=== PATIENT | female | born 1955 | race African-American/Black ===

== ENCOUNTER 2017-01-02 13:45 | Emergency (ER) | payer OTHER ==
[~2017-01-02 13:45] MED LIST: /AMLO25TA PO; /HCTZ25TA PO; ALBU83IN INH; ASPI325T PO; BENA25CA PO; CELE20TA PO; ESTR625TA PO; FLON0.054; FLUO10CA8 PO; FOLITAB11 PO; IBUP600T26 PO; LASI40TA PO; LISI-538 PO; LISI5TAB PO; MYRB25TA PO; NAPROXYN PO; NEUR300C PO; PERCOCET PO; PROZ20CA11 PO; SERT-138 PO; TRAZ50TA4 PO; VIST50CA PO; VITA10002 PO; VITA100T92 PO; VITA50003 PO; VITMTA PO; ZEST20TA8 PO
[2017-01-02] MEDS ORDERED: IPRATROPIUM 0.5MG/ALBUTEROL 2.5MG INH SOL UD 3ML (DUONEB)(J7620) As Ordered ONE (17:02)
--- NOTE | 2017-01-02 17:57 | EDDOCDS ---
Physician Documentation [facility] Name: Jared Peterson Age: 61 yrs Sex: Female : 1955 Arrival Date: 01/02/2017 Time: 13:45 Bed PD Private MD: Robb Parikh D Disposition: 01/02/17 17:33 Discharged to Home/Self Care. Impression: Acute bronchitis - possible undiagnosed COPD exaccerbation. - Condition is Stable. - Discharge Instructions: Acute Bronchitis, Smoking Cessation. - Prescriptions for Doxycycline Monohydrate 100 mg Oral Tablet - take 1 tablet by ORAL route every 12 hours for 10 days; 20 tablet. Prednisone 20 mg Oral Tablet - take 1 tablet by ORAL route as directed Day 1-3: 3 po, day 4-7: 2 po, day 8-10: 1 po; 20 tablet. Mucinex 600 mg - take 1 tablet by ORAL route 2 times per day; 30 tablet. benzonatate 200 mg Oral Capsule - take 1 capsule by ORAL route 3 times per day As needed; 30 capsule. - Medication Reconciliation, Local Pharmacy Hours form. - Follow up: Emergency Department; When: As needed; Reason: Fever > 102F, Trouble breathing, Worsening of conditions. Follow up: Robb Parikh; When: 2 - 3 days; Reason: Recheck today's complaints. Follow up: Dustin Ambriz MD; When: As needed; Reason: Recheck today's complaints, Continuance of care. - Problem is new. - Symptoms have improved. Historical: - Allergies: z-namita (zithromycin) (Hives); - Home Meds: 1. aspirin 325 mg Oral TbEC 1 tab once daily hasnt taken in 1 month 2. certraline 10 mg daily 3. Combivir 150-300 mg oral tab as needed 4. lisinopril 20 mg Oral tab 1 tab once daily 5. nasal spay each nostril as needed 6. premarin vaginal cream ---3 x weekly 7. baclofen 10 mg Oral tab nightly 8. meloxicam 7.5 mg oral tab 1 tab as needed 9. Copaxone 40 mg/mL subcutaneous syrg 1 mL 3 times per wk 10. steroid injections for pain 1 monthly - PMHx: breast CA; Gallstones; HTN; MS; - PSHx: right lobectomy; Bladder suspension; polyps removed; - Social history: Smoking status: Patient uses tobacco products, heavy tobacco smoker. No barriers to communication noted, The patient speaks fluent Urdu, Speaks appropriately for age. - Family history: Not pertinent. - : The pt / caregiver states he / she is not on anticoagulants. Home medication list is obtained from the patient. - Exposure Risk Screening:: None identified. Vital Signs: 01/02 13:48 BP 175 / 90; Pulse 79; Resp 18 S; Temp 98.1(O); Pulse Ox 97% on R/A; Weight 99.79 kg / gr2 220 lbs (R); Height 5 ft. 3 in. (160.02 cm) (R); Pain 4/10; 17:38 BP 145 / 72; Pulse 78; Resp 18; Temp 97.6(O); Pulse Ox 98% on R/A; Pain 4/10; ct3 13:48 Body Mass Index 38.97 (99.79 kg, 160.02 cm) gr2 MDM: 16:42 Financial registration complete. gjb 16:46 [facility] Payment Agreement was scanned into [employer] and attached to record. gjb 16:48 Albuterol-Ipratropium 1 neb Nebulizer every 20 minutes x3 ordered. ar2 16:48 Obtain sample by nasopharyngeal swab ordered. ar2 16:49 -Influenza A&B Rapid Antigen - Nose Ordered. EDMS 17:25 -Influenza A&B Rapid Antigen - Nose Reviewed. ar2 Administered Medications: 17:00 Drug: Albuterol-Ipratropium 1 neb [ipratropium-albuterol 0.5 mg-3 mg(2.5 mg base)/3 mL js11 nebulization soln (1 neb)] Route: Nebulizer; 17:15 Drug: Albuterol-Ipratropium 1 neb [ipratropium-albuterol 0.5 mg-3 mg(2.5 mg base)/3 mL js11 nebulization soln (1 neb)] Route: Nebulizer; 17:34 Drug: Albuterol-Ipratropium 1 neb [ipratropium-albuterol 0.5 mg-3 mg(2.5 mg base)/3 mL js11 nebulization soln (1 neb)] Route: Nebulizer; Signatures: Dispatcher [email or web address] EDYesenia BarrientosRN RN ck1 Ten Arauz, TRESSA PAGal ar2 Yina Mcallister RN RN hs1 Herminia Lopez Jordan js11 The chart was reviewed and I authenticate all verbal orders and agree with the evaluation and treatment provided.Attachments: 16:46 [facility] Payment Agreement zac MTDD
--- NOTE | 2017-01-02 17:58 | EDDOCDS ---
Nurse's Notes [facility] Name: Jared Peterson Age: 61 yrs Sex: Female : 1955 Arrival Date: 01/02/2017 Time: 13:45 Bed PD Private MD: Robb Parikh D Diagnosis: Acute bronchitis-possible undiagnosed COPD exaccerbation Presentation: 01/02 13:58 Presenting complaint: Patient states: was told by primary care office to come to urgent hs1 care. Patient presents with cough and cold symptoms for 4-5 days. Patient states productive cough. Patient states worse at night. Adult Sepsis Screening: The patient does not have new or worsening altered mentation. Patient's respiratory rate is less than 22. Systolic blood pressure is greater than 100. Patient has a qSOFA score of 0- Negative Sepsis Screen. Suicide/Homicide risk assessment- the patient denies having any suicidal and/or homicidal ideations and does not present with any other emotional, behavioral or mental health complaints. Status: Patient is not a printing services coordinator or dependent. Transition of care: patient was not received from another setting of care. 13:58 Acuity: JYOTI Level 3 hs1 13:58 Method Of Arrival: Walkin/Carried/Asstd hs1 Triage Assessment: 14:03 General: Appears in no apparent distress, Behavior is appropriate for age, cooperative. hs1 Pain: Denies pain. HIV screening NA for this visit Offered previously. Neurological: No deficits noted. Respiratory: Reports shortness of breath. Derm: Skin is pink, warm & dry. normal. Historical: - Allergies: z-namita (zithromycin) (Hives); - Home Meds: 1. aspirin 325 mg Oral TbEC 1 tab once daily hasnt taken in 1 month 2. certraline 10 mg daily 3. Combivir 150-300 mg oral tab as needed 4. lisinopril 20 mg Oral tab 1 tab once daily 5. nasal spay each nostril as needed 6. premarin vaginal cream ---3 x weekly 7. baclofen 10 mg Oral tab nightly 8. meloxicam 7.5 mg oral tab 1 tab as needed 9. Copaxone 40 mg/mL subcutaneous syrg 1 mL 3 times per wk 10. steroid injections for pain 1 monthly - PMHx: breast CA; Gallstones; HTN; MS; - PSHx: right lobectomy; Bladder suspension; polyps removed; - Social history: Smoking status: Patient uses tobacco products, heavy tobacco smoker. No barriers to communication noted, The patient speaks fluent Icelandic, Speaks appropriately for age. - Family history: Not pertinent. - : The pt / caregiver states he / she is not on anticoagulants. Home medication list is obtained from the patient. - Exposure Risk Screening:: None identified. Screenin:55 Screening information is obtained from the patient. Fall risk: No risks identified. ck1 Assistance ADL's: requires no assistance with activities of daily living. Abuse/DV Screen: The patient / caregiver reports he/she is: not in a situation that causes fear, pain or injury. Nutritional screening: No deficits noted. Advance Directives: Currently, there is no health care proxy. home support is adequate. Assessment: 17:56 General: Appears in no apparent distress, comfortable, Behavior is appropriate for age, ck1 cooperative. Pain: Denies pain. Neurological: Level of Consciousness is awake, alert, obeys commands, Oriented to person, place, time. Respiratory: Respiratory effort is unlabored, Respiratory pattern is regular, symmetrical. GI: No deficits noted. Derm: Skin is intact, is healthy with good turgor, Skin is pink, warm & dry. Vital Signs: 13:48 BP 175 / 90; Pulse 79; Resp 18 S; Temp 98.1(O); Pulse Ox 97% on R/A; Weight 99.79 kg gr2 (R); Height 5 ft. 3 in. (160.02 cm) (R); Pain 4/10; 17:38 BP 145 / 72; Pulse 78; Resp 18; Temp 97.6(O); Pulse Ox 98% on R/A; Pain 4/10; ct3 13:48 Body Mass Index 38.97 (99.79 kg, 160.02 cm) gr2 Vitals: 13:48 Log In Time: January 02, 2017 at 13:48. gr2 ED Course: 13:47 Patient visited by Ruby Duffy. gr2 13:47 Robb Parikh is Private Physician. gr2 13:47 Patient moved to Waiting gr2 13:52 Patient visited by Ruby Duffy. gr2 13:52 Patient moved to Pre RCE gr2 14:00 Triage Initiated hs1 16:02 Patient moved to Triage 1 mlb1 16:27 Ten Arauz PA-C [facility]. ar2 16:27 Freid Cope MD is Attending Physician. ar2 16:27 Patient visited by Ten Arauz PA-C. ar2 16:46 [facility] Payment Agreement was scanned into [employer] and attached to record. gjb 16:52 Patient moved to PD2 / 27 mlb1 16:55 -Influenza A&B Rapid Antigen - Nose Sent. ttb 17:03 Patient visited by Xochilt Degroot PCA. ct3 17:07 Patient name changed from Aundra\S\\S\Green\S\ to Aundra\S\ \S\Green. EDMS 17:31 Robb Parikh is Referral Physician. ar2 17:31 Dustin Ambriz MD is Referral Physician. ar2 17:39 Patient visited by Xochilt Degroot PCA. ct3 17:56 The patient / caregiver is instructed regarding the plan of care and ED course. ck1 17:56 No IV's were initiated during this patient's visit. No procedures done that require ck1 assistance. Administered Medications: 17:00 Drug: Albuterol-Ipratropium 1 neb [ipratropium-albuterol 0.5 mg-3 mg(2.5 mg base)/3 mL js11 nebulization soln (1 neb)] Route: Nebulizer; 17:15 Drug: Albuterol-Ipratropium 1 neb [ipratropium-albuterol 0.5 mg-3 mg(2.5 mg base)/3 mL js11 nebulization soln (1 neb)] Route: Nebulizer; 17:34 Drug: Albuterol-Ipratropium 1 neb [ipratropium-albuterol 0.5 mg-3 mg(2.5 mg base)/3 mL js11 nebulization soln (1 neb)] Route: Nebulizer; RT: 17:00 Initial Med Neb Given as ordered Patient was instructed and evaluated on procedure js11 Patient tolerated procedure well without adverse effect. Oxygen is room air. Respiratory: Breath sounds with wheezes bilaterally. at expiration. 17:15 Subsequent Med Neb Given as ordered Patient tolerated procedure well without adverse js11 effect. Respiratory: Breath sounds with wheezes bilaterally. at expiration. 17:34 Subsequent Med Neb Given as ordered Patient tolerated procedure well without adverse js11 effect. Respiratory: Breath sounds with wheezes bilaterally. at expiration. Order Results: Lab Order: -Influenza A&B Rapid Antigen - Nose; SPEC'M 01/02/17 16:53 Test: INFLUENZA A RAPID SCR by ICA; Value: INFLUENZA A RESULTS NEGATIVE; Status: F Test: INFLUENZA A RAPID SCR by ICA; Value: Comments:; Status: F Test: INFLUENZA B RAPID SCR by ICA; Value: INFLUENZA B RESULTS NEGATIVE; Status: F Test Note: ; The Influenza test is a direct rapid immunoassay for the qualitative detection of Influenza viral antigen. Cell culture (Viral Culture) testing should be considered to confirm NEGATIVE results and to assist in detecting other viruses that can provide similar clinical symptoms. Please contact the lab within 24 hours ([phone]) if confirmatory testing is desired. Outcome: 17:33 Discharge ordered by Provider. ar2 17:55 Discharge Assessment: Patient awake, alert and oriented x 3. No cognitive and/or ck1 functional deficits noted. Patient verbalized understanding of disposition instructions. patient administered narcotics - no. The following High Risk Discharge criteria are identified: None. Discharged to home ambulatory. Condition: stable. Discharge instructions given to patient, Instructed on discharge instructions, follow up and referral plans. medication usage, Demonstrated understanding of instructions, medications, Pt was receptive of discharge instructions/ teaching. Prescriptions given X 4. No special radiology studies were completed. Property :Personal belongings accompany Pt. 17:57 Patient left the ED. ck1 Signatures: Dispatcher [employer] EDNC Regulo Cotto RN RN mlb1 Yesenia MchughRN RN ck1 Ten Arauz, TRESSA PA-C ar2 Yina Mcallister RN RN hs1 Xochilt Degroot, FRUIT VENDOR FRUIT VENDOR ct3 Clayton Bain js11 Lindsay Alvarado RN RN ttb Ruby Duffy gr2 Herminia Lopez MTDD
--- NOTE | 2017-01-04 18:58 | EDDOCDS ---
Physician Documentation [facility] Name: Jared Peterson Age: 61 yrs Sex: Female : 1955 Arrival Date: 01/02/2017 Time: 13:45 Bed PD Private MD: Robb Parikh D Disposition: 01/02/17 17:33 Discharged to Home/Self Care. Impression: Acute bronchitis - possible undiagnosed COPD exaccerbation. - Condition is Stable. - Discharge Instructions: Acute Bronchitis, Smoking Cessation. - Prescriptions for Doxycycline Monohydrate 100 mg Oral Tablet - take 1 tablet by ORAL route every 12 hours for 10 days; 20 tablet. Prednisone 20 mg Oral Tablet - take 1 tablet by ORAL route as directed Day 1-3: 3 po, day 4-7: 2 po, day 8-10: 1 po; 20 tablet. Mucinex 600 mg - take 1 tablet by ORAL route 2 times per day; 30 tablet. benzonatate 200 mg Oral Capsule - take 1 capsule by ORAL route 3 times per day As needed; 30 capsule. - Medication Reconciliation, Local Pharmacy Hours form. - Follow up: Emergency Department; When: As needed; Reason: Fever > 102F, Trouble breathing, Worsening of conditions. Follow up: Robb Parikh; When: 2 - 3 days; Reason: Recheck today's complaints. Follow up: Dustin Ambriz MD; When: As needed; Reason: Recheck today's complaints, Continuance of care. - Problem is new. - Symptoms have improved. Historical: - Allergies: z-namita (zithromycin) (Hives); - Home Meds: 1. aspirin 325 mg Oral TbEC 1 tab once daily hasnt taken in 1 month 2. certraline 10 mg daily 3. Combivir 150-300 mg oral tab as needed 4. lisinopril 20 mg Oral tab 1 tab once daily 5. nasal spay each nostril as needed 6. premarin vaginal cream ---3 x weekly 7. baclofen 10 mg Oral tab nightly 8. meloxicam 7.5 mg oral tab 1 tab as needed 9. Copaxone 40 mg/mL subcutaneous syrg 1 mL 3 times per wk 10. steroid injections for pain 1 monthly - PMHx: breast CA; Gallstones; HTN; MS; - PSHx: right lobectomy; Bladder suspension; polyps removed; - Social history: Smoking status: Patient uses tobacco products, heavy tobacco smoker. No barriers to communication noted, The patient speaks fluent Arabic, Speaks appropriately for age. - Family history: Not pertinent. - : The pt / caregiver states he / she is not on anticoagulants. Home medication list is obtained from the patient. - Exposure Risk Screening:: None identified. Vital Signs: 01/02 13:48 BP 175 / 90; Pulse 79; Resp 18 S; Temp 98.1(O); Pulse Ox 97% on R/A; Weight 99.79 kg / gr2 220 lbs (R); Height 5 ft. 3 in. (160.02 cm) (R); Pain 4/10; 17:38 BP 145 / 72; Pulse 78; Resp 18; Temp 97.6(O); Pulse Ox 98% on R/A; Pain 4/10; ct3 13:48 Body Mass Index 38.97 (99.79 kg, 160.02 cm) gr2 MDM: 16:42 Financial registration complete. gjb 16:46 [facility] Payment Agreement was scanned into [employer] and attached to record. gjb 16:48 Albuterol-Ipratropium 1 neb Nebulizer every 20 minutes x3 ordered. ar2 16:48 Obtain sample by nasopharyngeal swab ordered. ar2 16:49 -Influenza A&B Rapid Antigen - Nose Ordered. EDMS 17:25 -Influenza A&B Rapid Antigen - Nose Reviewed. ar2 01/03 11:12 T-Sheet-- Draft Copy was scanned into [employer] and attached to record. gb Administered Medications: 01/02 17:00 Drug: Albuterol-Ipratropium 1 neb [ipratropium-albuterol 0.5 mg-3 mg(2.5 mg base)/3 mL js11 nebulization soln (1 neb)] Route: Nebulizer; 17:15 Drug: Albuterol-Ipratropium 1 neb [ipratropium-albuterol 0.5 mg-3 mg(2.5 mg base)/3 mL js11 nebulization soln (1 neb)] Route: Nebulizer; 17:34 Drug: Albuterol-Ipratropium 1 neb [ipratropium-albuterol 0.5 mg-3 mg(2.5 mg base)/3 mL js11 nebulization soln (1 neb)] Route: Nebulizer; Signatures: Dispatcher [employer] EDCherry Crane, Reg Reg gb Yesenia Mchugh,RN RN ck1 Ten Arauz, PAGal PA-C ar2 Yina Mcallister RN RN hs1 Herminia Lopez gjb Clayton Bain js11 The chart was reviewed and I authenticate all verbal orders and agree with the evaluation and treatment provided.Attachments: 16:46 [facility] Payment Agreement gjb 01/03 11:12 T-Sheet-- Draft Copy gb Chart Complete MTDD
--- NOTE | 2017-01-04 18:58 | EDDOCDS ---
Nurse's Notes [facility] Name: Jared Peterson Age: 61 yrs Sex: Female : 1955 Arrival Date: 01/02/2017 Time: 13:45 Bed PD Private MD: Robb Parikh D Diagnosis: Acute bronchitis-possible undiagnosed COPD exaccerbation Presentation: 01/02 13:58 Presenting complaint: Patient states: was told by primary care office to come to urgent hs1 care. Patient presents with cough and cold symptoms for 4-5 days. Patient states productive cough. Patient states worse at night. Adult Sepsis Screening: The patient does not have new or worsening altered mentation. Patient's respiratory rate is less than 22. Systolic blood pressure is greater than 100. Patient has a qSOFA score of 0- Negative Sepsis Screen. Suicide/Homicide risk assessment- the patient denies having any suicidal and/or homicidal ideations and does not present with any other emotional, behavioral or mental health complaints. Status: Patient is not a volunteer services supervisor or dependent. Transition of care: patient was not received from another setting of care. 13:58 Acuity: JYOTI Level 3 hs1 13:58 Method Of Arrival: Walkin/Carried/Asstd hs1 Triage Assessment: 14:03 General: Appears in no apparent distress, Behavior is appropriate for age, cooperative. hs1 Pain: Denies pain. HIV screening NA for this visit Offered previously. Neurological: No deficits noted. Respiratory: Reports shortness of breath. Derm: Skin is pink, warm & dry. normal. Historical: - Allergies: z-namita (zithromycin) (Hives); - Home Meds: 1. aspirin 325 mg Oral TbEC 1 tab once daily hasnt taken in 1 month 2. certraline 10 mg daily 3. Combivir 150-300 mg oral tab as needed 4. lisinopril 20 mg Oral tab 1 tab once daily 5. nasal spay each nostril as needed 6. premarin vaginal cream ---3 x weekly 7. baclofen 10 mg Oral tab nightly 8. meloxicam 7.5 mg oral tab 1 tab as needed 9. Copaxone 40 mg/mL subcutaneous syrg 1 mL 3 times per wk 10. steroid injections for pain 1 monthly - PMHx: breast CA; Gallstones; HTN; MS; - PSHx: right lobectomy; Bladder suspension; polyps removed; - Social history: Smoking status: Patient uses tobacco products, heavy tobacco smoker. No barriers to communication noted, The patient speaks fluent Welsh, Speaks appropriately for age. - Family history: Not pertinent. - : The pt / caregiver states he / she is not on anticoagulants. Home medication list is obtained from the patient. - Exposure Risk Screening:: None identified. Screenin:55 Screening information is obtained from the patient. Fall risk: No risks identified. ck1 Assistance ADL's: requires no assistance with activities of daily living. Abuse/DV Screen: The patient / caregiver reports he/she is: not in a situation that causes fear, pain or injury. Nutritional screening: No deficits noted. Advance Directives: Currently, there is no health care proxy. home support is adequate. Assessment: 17:56 General: Appears in no apparent distress, comfortable, Behavior is appropriate for age, ck1 cooperative. Pain: Denies pain. Neurological: Level of Consciousness is awake, alert, obeys commands, Oriented to person, place, time. Respiratory: Respiratory effort is unlabored, Respiratory pattern is regular, symmetrical. GI: No deficits noted. Derm: Skin is intact, is healthy with good turgor, Skin is pink, warm & dry. Vital Signs: 13:48 BP 175 / 90; Pulse 79; Resp 18 S; Temp 98.1(O); Pulse Ox 97% on R/A; Weight 99.79 kg gr2 (R); Height 5 ft. 3 in. (160.02 cm) (R); Pain 4/10; 17:38 BP 145 / 72; Pulse 78; Resp 18; Temp 97.6(O); Pulse Ox 98% on R/A; Pain 4/10; ct3 13:48 Body Mass Index 38.97 (99.79 kg, 160.02 cm) gr2 Vitals: 13:48 Log In Time: January 02, 2017 at 13:48. gr2 ED Course: 13:47 Patient visited by Ruby Duffy. gr2 13:47 Robb Parikh is Private Physician. gr2 13:47 Patient moved to Waiting gr2 13:52 Patient visited by Ruby Duffy. gr2 13:52 Patient moved to Pre RCE gr2 14:00 Triage Initiated hs1 16:02 Patient moved to Triage 1 mlb1 16:27 [facility] Arauz [facility]. ar2 16:27 Fredi Cope MD is Attending Physician. ar2 16:27 Patient visited by Ten Arauz PA-C. ar2 16:46 [facility] Payment Agreement was scanned into [employer] and attached to record. gjb 16:52 Patient moved to PD2 / 27 mlb1 16:55 -Influenza A&B Rapid Antigen - Nose Sent. ttb 17:03 Patient visited by Xochilt Degroot PCA. ct3 17:07 Patient name changed from Aundra\S\\S\Green\S\ to Aundra\S\ \S\Green. EDMS 17:31 Robb Parikh is Referral Physician. ar2 17:31 Dustin Ambriz MD is Referral Physician. ar2 17:39 Patient visited by Xochilt Degroot PCA. ct3 17:56 The patient / caregiver is instructed regarding the plan of care and ED course. ck1 17:56 No IV's were initiated during this patient's visit. No procedures done that require ck1 assistance. 01/03 11:12 T-Sheet-- Draft Copy was scanned into [employer] and attached to record. gb Administered Medications: 01/02 17:00 Drug: Albuterol-Ipratropium 1 neb [ipratropium-albuterol 0.5 mg-3 mg(2.5 mg base)/3 mL js11 nebulization soln (1 neb)] Route: Nebulizer; 17:15 Drug: Albuterol-Ipratropium 1 neb [ipratropium-albuterol 0.5 mg-3 mg(2.5 mg base)/3 mL js11 nebulization soln (1 neb)] Route: Nebulizer; 17:34 Drug: Albuterol-Ipratropium 1 neb [ipratropium-albuterol 0.5 mg-3 mg(2.5 mg base)/3 mL js11 nebulization soln (1 neb)] Route: Nebulizer; RT: 17:00 Initial Med Neb Given as ordered Patient was instructed and evaluated on procedure js11 Patient tolerated procedure well without adverse effect. Oxygen is room air. Respiratory: Breath sounds with wheezes bilaterally. at expiration. 17:15 Subsequent Med Neb Given as ordered Patient tolerated procedure well without adverse js11 effect. Respiratory: Breath sounds with wheezes bilaterally. at expiration. 17:34 Subsequent Med Neb Given as ordered Patient tolerated procedure well without adverse js11 effect. Respiratory: Breath sounds with wheezes bilaterally. at expiration. Order Results: Lab Order: -Influenza A&B Rapid Antigen - Nose; SPEC'M 01/02/17 16:53 Test: INFLUENZA A RAPID SCR by ICA; Value: INFLUENZA A RESULTS NEGATIVE; Status: F Test: INFLUENZA A RAPID SCR by ICA; Value: Comments:; Status: F Test: INFLUENZA B RAPID SCR by ICA; Value: INFLUENZA B RESULTS NEGATIVE; Status: F Test Note: ; The Influenza test is a direct rapid immunoassay for the qualitative detection of Influenza viral antigen. Cell culture (Viral Culture) testing should be considered to confirm NEGATIVE results and to assist in detecting other viruses that can provide similar clinical symptoms. Please contact the lab within 24 hours ([phone]) if confirmatory testing is desired. Outcome: 17:33 Discharge ordered by Provider. ar2 17:55 Discharge Assessment: Patient awake, alert and oriented x 3. No cognitive and/or ck1 functional deficits noted. Patient verbalized understanding of disposition instructions. patient administered narcotics - no. The following High Risk Discharge criteria are identified: None. Discharged to home ambulatory. Condition: stable. Discharge instructions given to patient, Instructed on discharge instructions, follow up and referral plans. medication usage, Demonstrated understanding of instructions, medications, Pt was receptive of discharge instructions/ teaching. Prescriptions given X 4. No special radiology studies were completed. Property :Personal belongings accompany Pt. 17:57 Patient left the ED. ck1 Signatures: Dispatcher [employer] EDMS Cherry Goldsmith, Reg Reg Regulo Hooker RN RN mlb1 Yesenia Mchugh RN RN ck1 Ten Arauz PA-C PAGal ar2 Yina Mcallister, KAYLIE RN hs1 Xochilt Degroot, BAG FILLER BAG FILLER ct3 Clayton Bain js11 Lindsay Alvarado RN RN ttb Ruby Duffy gr2 Herminia Lopez Chart Complete MTDD
--- NOTE | 2017-01-04 18:58 | EDDOCDS ---
Physician Documentation [facility] Name: Jared Peterson Age: 61 yrs Sex: Female : 1955 Arrival Date: 01/02/2017 Time: 13:45 Bed PD Private MD: Robb Parikh D Disposition: 01/02/17 17:33 Discharged to Home/Self Care. Impression: Acute bronchitis - possible undiagnosed COPD exaccerbation. - Condition is Stable. - Discharge Instructions: Acute Bronchitis, Smoking Cessation. - Prescriptions for Doxycycline Monohydrate 100 mg Oral Tablet - take 1 tablet by ORAL route every 12 hours for 10 days; 20 tablet. Prednisone 20 mg Oral Tablet - take 1 tablet by ORAL route as directed Day 1-3: 3 po, day 4-7: 2 po, day 8-10: 1 po; 20 tablet. Mucinex 600 mg - take 1 tablet by ORAL route 2 times per day; 30 tablet. benzonatate 200 mg Oral Capsule - take 1 capsule by ORAL route 3 times per day As needed; 30 capsule. - Medication Reconciliation, Local Pharmacy Hours form. - Follow up: Emergency Department; When: As needed; Reason: Fever > 102F, Trouble breathing, Worsening of conditions. Follow up: Robb Parikh; When: 2 - 3 days; Reason: Recheck today's complaints. Follow up: Dustin Ambriz MD; When: As needed; Reason: Recheck today's complaints, Continuance of care. - Problem is new. - Symptoms have improved. Historical: - Allergies: z-namita (zithromycin) (Hives); - Home Meds: 1. aspirin 325 mg Oral TbEC 1 tab once daily hasnt taken in 1 month 2. certraline 10 mg daily 3. Combivir 150-300 mg oral tab as needed 4. lisinopril 20 mg Oral tab 1 tab once daily 5. nasal spay each nostril as needed 6. premarin vaginal cream ---3 x weekly 7. baclofen 10 mg Oral tab nightly 8. meloxicam 7.5 mg oral tab 1 tab as needed 9. Copaxone 40 mg/mL subcutaneous syrg 1 mL 3 times per wk 10. steroid injections for pain 1 monthly - PMHx: breast CA; Gallstones; HTN; MS; - PSHx: right lobectomy; Bladder suspension; polyps removed; - Social history: Smoking status: Patient uses tobacco products, heavy tobacco smoker. No barriers to communication noted, The patient speaks fluent Yakut, Speaks appropriately for age. - Family history: Not pertinent. - : The pt / caregiver states he / she is not on anticoagulants. Home medication list is obtained from the patient. - Exposure Risk Screening:: None identified. Vital Signs: 01/02 13:48 BP 175 / 90; Pulse 79; Resp 18 S; Temp 98.1(O); Pulse Ox 97% on R/A; Weight 99.79 kg / gr2 220 lbs (R); Height 5 ft. 3 in. (160.02 cm) (R); Pain 4/10; 17:38 BP 145 / 72; Pulse 78; Resp 18; Temp 97.6(O); Pulse Ox 98% on R/A; Pain 4/10; ct3 13:48 Body Mass Index 38.97 (99.79 kg, 160.02 cm) gr2 MDM: 16:42 Financial registration complete. gjb 16:46 [facility] Payment Agreement was scanned into [employer] and attached to record. gjb 16:48 Albuterol-Ipratropium 1 neb Nebulizer every 20 minutes x3 ordered. ar2 16:48 Obtain sample by nasopharyngeal swab ordered. ar2 16:49 -Influenza A&B Rapid Antigen - Nose Ordered. EDMS 17:25 -Influenza A&B Rapid Antigen - Nose Reviewed. ar2 01/03 11:12 T-Sheet-- Draft Copy was scanned into [employer] and attached to record. gb Administered Medications: 01/02 17:00 Drug: Albuterol-Ipratropium 1 neb [ipratropium-albuterol 0.5 mg-3 mg(2.5 mg base)/3 mL js11 nebulization soln (1 neb)] Route: Nebulizer; 17:15 Drug: Albuterol-Ipratropium 1 neb [ipratropium-albuterol 0.5 mg-3 mg(2.5 mg base)/3 mL js11 nebulization soln (1 neb)] Route: Nebulizer; 17:34 Drug: Albuterol-Ipratropium 1 neb [ipratropium-albuterol 0.5 mg-3 mg(2.5 mg base)/3 mL js11 nebulization soln (1 neb)] Route: Nebulizer; Signatures: Dispatcher [employer] EDCherry Crane, Reg Reg gb Yesenia Mchugh,RN RN ck1 Ten Arauz, PAGal PA-C ar2 Yina Mcallister RN RN hs1 Herminia Lopez gjb Clayton Bain js11 The chart was reviewed and I authenticate all verbal orders and agree with the evaluation and treatment provided.Attachments: 16:46 [facility] Payment Agreement gjb 01/03 11:12 T-Sheet-- Draft Copy gb Chart Complete MTDD
== END 2017-01-02 17:57 | disposition home or self-care (01) ==
LOC: M ED 13:45
DX: J20.9 Acute bronchitis, unspecified (principal); I10 Essential (primary) hypertension; G35 Multiple sclerosis; Z85.3 Personal history of malignant neoplasm of breast; Z87.19 Personal history of other diseases of the digestive system; Z79.899 Other long term (current) drug therapy; Z88.1 Allergy status to other antibiotic agents

== ENCOUNTER → 2017-02-05 | Outpatient (CLI) | payer OTHER ==
--- NOTE | 2017-02-11 23:49 | ECWPNPC ---
PATIENT NAME: TYLER GONZÁLES : 1955 GENDER: FEMALE VISIT DATE: 02/05/2017 DISCHARGE DATE: 02/05/17 1114 VISIT LOCKED DATE TIME: PHYSICIAN: MOODY PRADHAN RESOURCE: MOODY PRADHAN REASON FOR APPOINTMENT 1. NECK/SHOULERS HISTORY OF PRESENT ILLNESS HISTORY OF PRESENT ILLNESS: HERE FOR POST PROCEDURE F/U.HAD TPI [id number] AND REPORTS >75% PERCENT IMPROVEMENT IN INTENSITY OF PAIN X2 WKS.C/O GENERALIZED NECK PAIN.DESCRIBES PAIN CONSTANT ACHING AND THROBBING.PAIN AGGREVATED WITH ROJM NECK. FALL RISK SCREENING: SCREENING :NO FALLS IN THE PAST YEAR CURRENT MEDICATIONS TAKING FLONASE 50 MCG/DOSE INHALER 1 SPRAY IN EACH NOSTRIL NASALLY ONCE A DAY TAKING PREMARIN 0.625 MG/GM CREAM CREAM VAGINAL THREE TIMES WEEKLY TAKING ZOLOFT 100 MG TABLET 1 TABLET ORALLY ONCE A DAY ([facility]) TAKING COMBIVENT RESPIMAT 20-100 MCG/ACT AEROSOL SOLUTION 1 PUFF INHALATION FOUR TIMES A DAY NEEDED TAKING HYDROXYZINE HCL 25 MG TABLET 1 TABLET NEEDED ORALLY EVERY 8 HRS TAKING DRISDOL (6 WEEK) 15441 UNIT CAPSULE 1 CAPSULE ORALLY ONCE WEEKLY, NOTES: NONE LATELY TAKING MELOXICAM 15 MG TABLET 1 TABLET ORALLY ONCE A DAY NEEDED, NOTES: NONE LATELY TAKING BACLOFEN 10 MG TABLET 1 TABLET WITH FOOD OR MILK ORALLY DAILY, NOTES: 10/23/16 TAKING LISINOPRIL 20 MG TABLET 1 TABLET ORALLY ONCE A DAY, NOTES: 10/25/16 0830 TAKING ASPIR-81 81 MG TABLET DELAYED RELEASE 1 TABLET ORALLY ONCE A DAY TAKING COPAXONE 40 MG/ML SOLUTION PREFILLED SYRINGE 1 ML SUBCUTANEOUS THREE TIMES A WEEK TAKING VITAMIN B12 1000 MCG TABLET EXTENDED RELEASE 1 TABLET ORALLY ONCE A DAY NOT-TAKING ASPIRIN 325 MG TABLET 1 TABLET ORALLY ONCE A DAY, NOTES: NONE LATELY NOT-TAKING AMITRIPTYLINE HCL 25 MG TABLET 1 TABLET ORALLY AT BEDTIME NEEDED, NOTES: 10/24/16 NOT-TAKING CLINDAMYCIN HCL 300 MG CAPSULE TAKE ONE CAPSULE BY MOUTH EVERY 6 HOURS ORAL NOT-TAKING ATORVASTATIN CALCIUM 80 MG TABLET 1 TABLET ORALLY ONCE A DAY MEDICATION LIST REVIEWED AND RECONCILED WITH THE PATIENT PAST MEDICAL HISTORY CHRONIC HEPATITIS C - DX 1998 GENOTYPE 1 A, VL 2.5 MILLION, F1 FIBROSIS, LIVER US GALLSTONES 2014, Q80K POLYMORPHISM TREATMENT VIEKIRA PACK/ RIBAVIRIN FOR 12 WEEKS SVR 12 CURED HTN ALCOHOLISM WENT TO DETOX AND REHAB 07/2013 AND 07/22/2014 AND 06/2015 DEPRESSION HX IVDU ALCOHOLIC NEUROPATHY SUSPECTED MS WITH DEMYLINATING PLAQUES IN BRAIN AND THORACIC SPINE VITAMIN B12 DEFICIENY CAPARL TUNNEL BENJAMIN. 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 NEW PATIENT PAIN DIARY TODAY'S VISITNOTES FROM 0-10, WHAT LEVEL IS YOUR PAIN TODAY?0 PAIN CLINIC PFS, CLERGY, PUBLIC HEALTH REFERRALS PFS REFERRAL NEEDED?NO CLERGY REFERRAL NEEDED?NO PUBLIC HEALTH REFERRAL NEEDED?NO WAS THE PROVIDER NOTIFIED OF ANY PERTINENT INFO?NO PFS REFERRAL NEEDED?NO CLERGY REFERRAL NEEDED?NO PUBLIC HEALTH REFERRAL NEEDED?NO WAS THE PROVIDER NOTIFIED OF ANY PERTINENT INFO?NO REVIEW OF SYSTEMS CONSTITUTIONAL: ANY CHANGE IN YOUR MEDICAL CONDITION? NO . RECENT ILLNESS DENIES . CHILLS NO . FEVER NO . WEIGHT LOSS DENIES . INFECTION: DO YOU HAVE NEW INFECTIONS? NO . DO YOU HAVE HISTORY OF MRSA? NO . MUSCULOSKELETAL: ANY NEW PATTERNS OF PAIN OR NUMBNESS? YES, PAIN IN LEFT ARM . GASTROENTEROLOGY: ANY NEW CHANGE IN BOWEL CONTROL? NO . GENITOURINARY: ANY NEW CHANGE IN BLADDER CONTROL? NO . IS THERE A CHANCE YOU COULD BE ? NO . HEMATOLOGY/LYMPH: DO YOU TAKE ANY BLOOD THINNERS? (FOR EXAMPLE- COUMADIN, PLAVIX, AGGRENOX, PLATEL, PRADAXA, OR XARELTO) NO . WHEN WAS YOUR LAST DOSE? DATE: TIME: . NEUROLOGY: HAVE YOU FALLEN IN THE PAST 6 MONTHS? YES, VERTIGO AND BALANCE PROBLEMS . ANY NEW EXTREMITY NUMBNESS OR WEAKNESS? NO . CARDIOLOGY: DO YOU HAVE A PACEMAKER OR DEFIBRILLATOR? NO . CHEST PAIN DENIES . SHORTNESS OF BREATH DENIES . RESPIRATORY: HAVE YOU BEEN SICK IN THE PAST WEEK? NO . FEVER NO . FLU LIKE SYMPTOMS? NO . COUGH NO, DENIES . SHORTNESS OF BREATH DENIES . INTEGUMENTARY: DO YOU HAVE ANY RASHES OR OPEN SORES? NO . ALLERGIC/IMMUNO: ARE YOU ALLERGIC TO SHELLFISH OR IV DYE? NO . ANY NEW ALLERGIES? NO . PSYCHIATRIC: DO YOU HAVE THOUGHTS OF HURTING YOURSELF OR SOMEONE ELSE? NO . ARE YOU ABUSED, NEGLECTED, OR IN AN UNSAFE ENVIRONMENT? NO . ENDOCRINOLOGY: ARE YOU DIABETIC? NO . OTHER: DO YOU NEED ANY PRESCRIPTIONS? WILL DISCUSS . IF YES, PLEASE LIST: ____ . ANY NEW PROBLEMS WITH YOUR MEDICATIONS? NO . WHEN DID YOU LAST EAT? ____ . WHEN DID YOU LAST DRINK? ____ . WHAT DID YOU LAST DRINK? ____ . NAME OF PERSON DRIVING YOU HOME? ____ . DO YOU HAVE ANY OTHER QUESTIONS OR CONCERNS YES, COUNSELING ON MEDS . REVIEWED BY: PROVIDER: MOODY BEASLEY . VITAL SIGNS WT 220 LBS, HT 62 IN, BMI 40.23 INDEX, BP 154/79 MM HG, HR 86 /MIN, RR 18 /MIN, TEMP 97.9 F, OXYGEN SAT % 96%, REVIEWED BY: MERRY. EXAMINATION GENERAL EXAMINATION: LUNGS:LUNG SOUNDS ARE CLEAR. HEART:HEART RATE REGULAR. MUSCULOSKELETAL:*, MUSCLE STRENGTH TESTING 5/5 BUE., PALPATION: POSITIVE FOR PAIN OVER C- SPINE. POSITIVE FOR PAIN OVER CERVICAL PARASPINALS. DIAGNOSTIC:MRI [id number] -REVIEWED.. ASSESSMENTS MYALGIA - M79.1 (PRIMARY) CERVICALGIA - M54.2 TREATMENT MYALGIA TRIGGER POINT 1-2 MOODY EDUARDO 02/05/2017 11:08:03 AM > NECK PROCEDURE CODES FA211 ESTABILISHED PATIENT [facility] CHARGE DISPOSITION & COMMUNICATION FOLLOW UP 1MOS POST (REASON: TPI NECK) ELECTRONICALLY SIGNED BY RAMOS SHEETS ON 02/11/2017 AT 05:07 PM EDT DISCLAIMER : THIS IS A VISIT SUMMARY EXTRACTED FROM THE [employer] CHART. IT IS NOT A COPY OF THE [employer] PROGRESS NOTE. MTDD
== END ==
LOC: M PAIN 10:20
PROVIDERS: ATTEND Nurse Practitioner Family
DX: Z09 Encounter for follow-up examination after completed treatment for conditions other than malignant neoplasm (principal); G89.29 Other chronic pain; M79.1 Myalgia; M54.2 Cervicalgia; I10 Essential (primary) hypertension; F10.20 Alcohol dependence, uncomplicated; F32.9 Major depressive disorder, single episode, unspecified; E53.8 Deficiency of other specified B group vitamins; Z88.1 Allergy status to other antibiotic agents; G62.1 Alcoholic polyneuropathy; Z79.51 Long term (current) use of inhaled steroids; Z79.1 Long term (current) use of non-steroidal anti-inflammatories (NSAID); Z79.82 Long term (current) use of aspirin; Z79.899 Other long term (current) drug therapy

== ENCOUNTER 2017-03-01 15:50 | Emergency (ER) | payer OTHER ==
[~2017-03-01] VITALS: Ht 160 cm; Wt 102.1 kg
[2017-03-01] MEDS ORDERED: MELO15TA4 PO (16:15)
[2017-03-01] MEDS ORDERED: COPA1INJ SC (16:15)
[2017-03-01] MEDS ORDERED: ESTR125TA PO (16:15)
[2017-03-01] MEDS ORDERED: BACL-67 PO (16:15)
[2017-03-01] MEDS ORDERED: [UNRECOGNIZED DRUG - CODE] PO (16:15)
[2017-03-01 19:10] VITALS: BP 166/94
--- NOTE | 2017-03-01 21:05 | REP ---
CT BRAIN WITHOUT CONTRAST: 03/01/2017. Clinical history: Head injury. Nausea. History of MS. No prior study. Noncontrast images of the brain show ventricles midline, symmetric and without dilatation or displacement. Barcenas-white junction differentiation well maintained. Basal ganglia intact. There is only minimal atrophy, but greatest in the temporal lobes. The cortical stripe otherwise preserved with no vascular territory infarct, hemorrhage, mass or extra-axial fluid collection. Brainstem unremarkable. Cerebellum with mild atrophy. No bleed in the posterior fossa. Mastoids and visible sinuses clear. Calvarium and skull base without fracture or focal lesion. Impression: 1. Mild atrophy without intracranial hemorrhage, mass, infarct, edema or other acute finding. No fracture skull base or calvarium. Sinuses and mastoids clear. Signed by Felice Sánchez MD 03/02/2017 08:02 P
--- NOTE | 2017-03-01 21:33 | REP ---
CT cervical spine without contrast, 03/01/2017. Clinical history: Trauma, head injury. History of MS. Findings: No prior study. Trauma protocol was utilized. There is loss of normal cervical lordosis on the sagittal reconstructions. Cervical spondylosis, greatest at C6-7 with anterior osteophyte at C6. Slight narrowing at that disc space, with all other disc spaces and all vertebral body heights intact. No compression deformity or destructive lesion is seen. The spinous processes, lamina, facets, pedicles and transverse processes are without acute fracture. There is facet arthropathy at a few levels. The ring of C1 was intact. Its relationship to the dens and the lateral mass of C1 unremarkable. Craniocervical junction aligns normally. Mastoids and occipital bone as well as remainder of visualized skull base intact. There is no central canal stenosis. Some marginal osteophytes are present, but foramina show encroachment at C6-7 on the left and marginally at C5-6 on the left. Other levels with mild encroachment at C4-5 on the left and C3-4. No tight stenosis. Visualized lung apices were clear and the upper cervical levels and first two ribs with portions of medial clavicles included unremarkable. Impression: 1. There are several levels with degenerative disc changes at C6-7 with loss of lordosis that may reflect spasm. No central canal stenosis, but with some mild foraminal encroachment at multiple levels due to uncinate spur. No compression fractures, posterior element fracture or other acute bony finding. Signed by Felice Sánchez MD 03/02/2017 08:03 P
== END 2017-03-01 19:16 | disposition home or self-care (01) ==
LOC: M ED 17:23
DX: S00.93XA Contusion of unspecified part of head, initial encounter (principal); S16.1XXA Strain of muscle, fascia and tendon at neck level, initial encounter; W11.XXXA Fall on and from ladder, initial encounter; Y92.018 Other place in single-family (private) house as the place of occurrence of the external cause; Y93.89 Activity, other specified; Y99.8 Other external cause status; I10 Essential (primary) hypertension; J44.9 Chronic obstructive pulmonary disease, unspecified; J45.909 Unspecified asthma, uncomplicated; B19.20 Unspecified viral hepatitis C without hepatic coma; Z85.118 Personal history of other malignant neoplasm of bronchus and lung; F10.21 Alcohol dependence, in remission; Z79.899 Other long term (current) drug therapy; Z79.82 Long term (current) use of aspirin; Z88.1 Allergy status to other antibiotic agents

== ENCOUNTER → 2017-04-04 | Outpatient (REF) | payer OTHER ==
[~2017-04-04] MED LIST changes: +BACL-67 PO; +COPA1INJ SC; +ESTR125TA PO; +MELO15TA4 PO; +[UNRECOGNIZED DRUG - CODE] PO
== END ==
LOC: M LABNEURO 17:01
PROVIDERS: ATTEND Psychiatry & Neurology Neurology
DX: E55.9 Vitamin D deficiency, unspecified (principal); E53.8 Deficiency of other specified B group vitamins

== ENCOUNTER → 2017-04-05 | Outpatient (CLI) | payer OTHER ==
[~2017-04-05] MED LIST changes: +AUGM875T27 PO; +BENZ200C44 PO; +DIAZ5TAB; +GABA-279; +GABA-279 PO; +INCR1INH; +MUCI600T34 PO; +PRED20TA PO
--- NOTE | 2017-04-18 23:38 | ECWPNPC ---
PATIENT NAME: TYLER GONZÁLES : 1955 GENDER: FEMALE VISIT DATE: 04/05/2017 DISCHARGE DATE: 04/05/177 VISIT LOCKED DATE TIME: PHYSICIAN: MOODY PRADHAN RESOURCE: MOODY PRADHAN REASON FOR APPOINTMENT 1. NECK/SHOULDER HISTORY OF PRESENT ILLNESS HISTORY OF PRESENT ILLNESS: PAIN THE PATIENT DESCRIBES THE PAIN... THE PATIENT DESCRIBES THE PAIN... HERE FOR POST PROCEDURE F/U.HAD TPI NECK AND BILATERAL SHOULDERS ON03-04-17 .REPORTS RESOLUTION OF LEFT SHOULDER PAIN AND >75% IMPROVEMENT IN NECK PAIN.REPORTS NO RESOLUTION IN RIGHT SHOULDER PAIN.DESCRIBES PAIN CONSTANT ACHING AND THROBBING.PAIN AGGREVATED WITH ROJM NECK.GENERALLY HURTS ALL OVER.REPORTS BUZZING PAIN IN LEGS.REPORTS SHOOTING PAIN IN FEET PRN WITH MOTION OF NECK.ALSO SUFFERS FROM MULTIPLE SCLEROSIS.STARTED ON GABAPENTIN YESTERDAY FROM [facility].RIGHT SHOULDER HAS BEEN BOTHERING HER PAST FEW MONTHS.THIS IS BEING FOLLOWED BY PRIMARY CARE.RATING PAIN VAS 5/10. FALL RISK SCREENING: SCREENING :NO FALLS IN THE PAST YEAR CURRENT MEDICATIONS TAKING DRISDOL (6 WEEK) 47801 UNIT CAPSULE 1 CAPSULE ORALLY ONCE WEEKLY, NOTES: 1 MONTH TAKING FLONASE 50 MCG/DOSE INHALER 2 SPRAY IN EACH NOSTRIL NASALLY ONCE A DAY, NOTES: 03/04 8AM TAKING PREMARIN 0.625 MG/GM CREAM CREAM VAGINAL THREE TIMES WEEKLY, NOTES: 1 WEEK TAKING ZOLOFT 100 MG TABLET 1 TABLET ORALLY ONCE A DAY ([facility]), NOTES: 03/04 8AM TAKING HYDROXYZINE HCL 25 MG TABLET 1 TABLET NEEDED ORALLY EVERY 8 HRS, NOTES: 3 DAYS TAKING MELOXICAM 15 MG TABLET 1 TABLET ORALLY ONCE A DAY NEEDED, NOTES: 1 WEEK TAKING BACLOFEN 10 MG TABLET 1 TABLET WITH FOOD OR MILK ORALLY DAILY, NOTES: 10/23/10 8AM TAKING LISINOPRIL 20 MG TABLET 1 TABLET ORALLY ONCE A DAY, NOTES: 03/04 8AM TAKING COPAXONE 40 MG/ML SOLUTION PREFILLED SYRINGE 1 ML SUBCUTANEOUS THREE TIMES A WEEK, NOTES: 3 DAYS TAKING VITAMIN B12 1000 MCG TABLET EXTENDED RELEASE 1 TABLET ORALLY ONCE A DAY, NOTES: 2-3 WEEKS TAKING COMBIVENT RESPIMAT 20-100 MCG/ACT AEROSOL SOLUTION 1 PUFF INHALATION FOUR TIMES A DAY NEEDED TAKING ATORVASTATIN CALCIUM 80 MG TABLET 1 TABLET ORALLY ONCE A DAY TAKING INCRUSE ELLIPTA 62.5 MCG/INH AEROSOL POWDER BREATH ACTIVATED 1 PUFF INHALATION ONCE A DAY, NOTES: 03/04 8AM NOT-TAKING ASPIRIN 325 MG TABLET 1 TABLET ORALLY ONCE A DAY, NOTES: NONE LATELY NOT-TAKING AMITRIPTYLINE HCL 25 MG TABLET 1 TABLET ORALLY AT BEDTIME NEEDED, NOTES: 10/24/16 MEDICATION LIST REVIEWED AND RECONCILED WITH THE PATIENT PAST MEDICAL HISTORY CHRONIC HEPATITIS C - DX 1998 GENOTYPE 1 A, VL 2.5 MILLION, F1 FIBROSIS, LIVER US GALLSTONES 2013, Q80K POLYMORPHISM TREATMENT VIEKIRA PACK/ RIBAVIRIN FOR 12 WEEKS SVR 12 CURED HTN ALCOHOLISM WENT TO DETOX AND REHAB 07/2013 AND 07/22/2014 AND 06/2015 DEPRESSION HX IVDU ALCOHOLIC NEUROPATHY SUSPECTED MS WITH DEMYLINATING PLAQUES IN BRAIN AND THORACIC SPINE VITAMIN B12 DEFICIENY CAPARL TUNNEL BENJAMIN. 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 NO. PT STATES SHE HAD TPI 03/04/17. PRE-PROCEDURE PT REPORTS PAIN WAS 5/10. POST PROCEDURE, PT REPORTS R SHOULDER NO IMPROVEMENT; NECK IMPROVED BILAT 2/10; L SHOULDER COMPLETE RELIEF. . CHILLS NO . FEVER NO . INFECTION: DO YOU HAVE NEW INFECTIONS? NO . DO YOU HAVE HISTORY OF MRSA? NO . MUSCULOSKELETAL: ANY NEW PATTERNS OF PAIN OR NUMBNESS? YES. INTERMITTENT PAIN AND NUMBNESS IN BILAT LEGS . GASTROENTEROLOGY: ANY NEW CHANGE IN BOWEL CONTROL? NO . GENITOURINARY: ANY NEW CHANGE IN BLADDER CONTROL? NO . IS THERE A CHANCE YOU COULD BE ? NO . HEMATOLOGY/LYMPH: DO YOU TAKE ANY BLOOD THINNERS? (FOR EXAMPLE- COUMADIN, PLAVIX, AGGRENOX, PLATEL, PRADAXA, OR XARELTO) NO . WHEN WAS YOUR LAST DOSE? DATE: TIME: . NEUROLOGY: HAVE YOU FALLEN IN THE PAST 6 MONTHS? YES. PT REPORTS FALLING OFF LADDER 3 STEPS UP, LOST BALANCE, HIT HER HEAD, WENT TO [facility] ER, BRUISING, NOTHING MAJOR TO REPORT; THEN PT WAS PUSHING SHOPPING CART IN STREET, LOST BALANCE AND FELL TO GROUND ON KNEES; ANOTHER TIME PT HIT HEAD IN WALL FROM TURNING TOO QUICKLY. . ANY NEW EXTREMITY NUMBNESS OR WEAKNESS? NO . CARDIOLOGY: DO YOU HAVE A PACEMAKER OR DEFIBRILLATOR? NO . RESPIRATORY: HAVE YOU BEEN SICK IN THE PAST WEEK? NO . FEVER NO . FLU LIKE SYMPTOMS? NO . COUGH NO . INTEGUMENTARY: DO YOU HAVE ANY RASHES OR OPEN SORES? NO . ALLERGIC/IMMUNO: ARE YOU ALLERGIC TO SHELLFISH OR IV DYE? NO . ANY NEW ALLERGIES? NO . PSYCHIATRIC: DO YOU HAVE THOUGHTS OF HURTING YOURSELF OR SOMEONE ELSE? NO . ARE YOU ABUSED, NEGLECTED, OR IN AN UNSAFE ENVIRONMENT? NO . ENDOCRINOLOGY: ARE YOU DIABETIC? NO . OTHER: DO YOU NEED ANY PRESCRIPTIONS? YES PT REQUESTS PAIN RELIEF . IF YES, PLEASE LIST: ____ . ANY NEW PROBLEMS WITH YOUR MEDICATIONS? NO . WHEN DID YOU LAST EAT? ____ . WHEN DID YOU LAST DRINK? ____ . WHAT DID YOU LAST DRINK? ____ . NAME OF PERSON DRIVING YOU HOME? ____ . DO YOU HAVE ANY OTHER QUESTIONS OR CONCERNS NO . REVIEWED BY: PROVIDER: MOODY BEASLEY . VITAL SIGNS WT 228 LBS, HT 62 IN, BMI 41.70 INDEX, BP 158/97 MM HG, HR 84 /MIN, RR 18 /MIN, TEMP 96.8 F, OXYGEN SAT % 98%, SAFE IN ENV? (Y/N) Y, NA INITIALS TN 14:08, REVIEWED BY: EM. EXAMINATION GENERAL EXAMINATION: LUNGS:LUNG SOUNDS ARE CLEAR. HEART:HEART RATE REGULAR. MUSCULOSKELETAL:*, MUSCLE STRENGTH TESTING 5/5 BUE., PALPATION: POSITIVE FOR PAIN OVER C- SPINE. POSITIVE FOR PAIN OVER CERVICAL PARASPINALS. DIAGNOSTIC:MRI [id number] -REVIEWED.. ASSESSMENTS MYALGIA - M79.1 (PRIMARY) CERVICALGIA - M54.2 TREATMENT MYALGIA NOTES: TIGGER POINT INJECTIONS RIGHT SHOULDER AND NECKPLEASE TALK TO NEUROLOGY REGARDING INCREASED RISK OF INFECTION WITH TPI AND USE OF CAPAXONE.DR. KING WOULD LIKE HER TO HOLD THE MEDICINE FOR ONE WEEK PRE INJECTION AND NOT RESTART UNTIL 1 WEEKS AFTER INJECTIONS. PREVENTIVE MEDICINE PAIN CLINIC TEACHING: PROCEDURE TEACHING REVIEWED AND GAVE TPI INSTRUCTIONS TO PT PT EXPRESSED UNDERSTANDING. PT STATES SHE WILL SPEAK TO NEUROLOGIST REGARDING IMMUNOSUPPRESSANT INJECTION 3 X/WEEK IN REGARDS TO PROCEDURE, TO STOP MED OR NOT.. PROCEDURE CODES FA211 ESTABILISHED PATIENT [facility] CHARGE DISPOSITION & COMMUNICATION FOLLOW UP 2WK POST (REASON: TIGGER POINT INJECTIONS RIGHT SHOULDER AND NECK) ELECTRONICALLY SIGNED BY RAMOS SHEETS ON 04/18/2017 AT 03:58 PM EDT DISCLAIMER : THIS IS A VISIT SUMMARY EXTRACTED FROM THE [employer] CHART. IT IS NOT A COPY OF THE [employer] PROGRESS NOTE. ROBERT
== END ==
LOC: M PAIN 14:00
PROVIDERS: ATTEND Nurse Practitioner Family
DX: M79.1 Myalgia (principal); M54.2 Cervicalgia; Z79.899 Other long term (current) drug therapy; Z88.0 Allergy status to penicillin; B18.2 Chronic viral hepatitis C; G35 Multiple sclerosis; I10 Essential (primary) hypertension; E55.9 Vitamin D deficiency, unspecified; D75.89 Other specified diseases of blood and blood-forming organs; E78.5 Hyperlipidemia, unspecified; F10.20 Alcohol dependence, uncomplicated

== ENCOUNTER 2017-04-23 10:30 | Outpatient (RCR) | payer OTHER ==
[2017-05-09] MEDS ORDERED: GABA-279 PO (11:40)
== END 2017-04-24 ==
LOC: M PT 10:30
PROVIDERS: ATTEND Otolaryngology
DX: Z51.89 Encounter for other specified aftercare (principal); H81.10 Benign paroxysmal vertigo, unspecified ear

== ENCOUNTER → 2017-04-23 | Outpatient (CLI) | payer OTHER ==
[~2017-04-23] MED LIST changes: -AUGM875T27 PO; -BENZ200C44 PO; -DIAZ5TAB; -GABA-279; -GABA-279 PO; -INCR1INH; -MUCI600T34 PO; -PRED20TA PO
[2017-04-23 13:22] LABS: BLOOD UREA NITROGEN 11 MG/DL (7-18); CREATININE FOR GFR 0.89 MG/DL (0.55-1.02); GLOMERULAR FILTRATION RATE > 60.0 (>45)
== END ==
LOC: M LAB 11:57
PROVIDERS: ATTEND Psychiatry & Neurology Neurology
DX: N28.89 Other specified disorders of kidney and ureter (principal)

== ENCOUNTER → 2017-04-29 | Outpatient (CLI) | payer OTHER ==
[~2017-04-29] MED LIST changes: +AUGM875T27 PO; +BENZ200C44 PO; +BUPIVACAINE HCL 0.25% 10 ML VIAL As Ordered ONE; +BUPIVACAINE HCL 0.25% 30 ML VIAL As Ordered ONE; +DIAZ5TAB; +GABA-279; +GABA-279 PO; +INCR1INH; +MUCI600T34 PO; +PRED20TA PO; +TRIAMCINOLONE ACETONIDE SUSP 40 MG/ML VIAL (J3301) As Ordered ONE; +diazePAM 5 MG TAB As Ordered ONE; +oxyCODONE 5MG TAB As Ordered ONE
--- NOTE | 2017-05-06 00:05 | ECWPNPC ---
PATIENT NAME: TYLER GONZÁLES : 1955 GENDER: FEMALE VISIT DATE: 04/29/2017 DISCHARGE DATE: 04/29/17 1006 VISIT LOCKED DATE TIME: PHYSICIAN: FLORENCIO KING RESOURCE: FLORENCIO KING REASON FOR APPOINTMENT 1. NECK AND SHOULDERS HISTORY OF PRESENT ILLNESS HISTORY OF PRESENT ILLNESS: PAIN THE PATIENT DESCRIBES THE PAIN... FALL RISK SCREENING: SCREENING :NO FALLS IN THE PAST YEAR CURRENT MEDICATIONS TAKING DRISDOL (6 WEEK) 14154 UNIT CAPSULE 1 CAPSULE ORALLY ONCE WEEKLY, NOTES: NONE RECENTLY TAKING FLONASE 50 MCG/DOSE INHALER 2 SPRAY IN EACH NOSTRIL NASALLY ONCE A DAY, NOTES: 04/28/17 0800 TAKING PREMARIN 0.625 MG/GM CREAM CREAM VAGINAL THREE TIMES WEEKLY, NOTES: 3 DAYS AGO TAKING ZOLOFT 100 MG TABLET 1 TABLET ORALLY ONCE A DAY ([facility]), NOTES: 04/28/17 0800 TAKING HYDROXYZINE HCL 25 MG TABLET 1 TABLET NEEDED ORALLY EVERY 8 HRS, NOTES: 04/28/17 2100 TAKING MELOXICAM 15 MG TABLET 1 TABLET ORALLY ONCE A DAY NEEDED, NOTES: NONE RECENTLY TAKING BACLOFEN 10 MG TABLET 1 TABLET WITH FOOD OR MILK ORALLY DAILY, NOTES: NONE RECENTLY TAKING LISINOPRIL 20 MG TABLET 1 TABLET ORALLY ONCE A DAY, NOTES: 04/28/17 08 TAKING COPAXONE 40 MG/ML SOLUTION PREFILLED SYRINGE 1 ML SUBCUTANEOUS THREE TIMES A WEEK, NOTES: 3 WEEKS AGO TAKING VITAMIN B12 1000 MCG TABLET EXTENDED RELEASE 1 TABLET ORALLY ONCE A DAY, NOTES: 04/28/17 08 TAKING COMBIVENT RESPIMAT 20-100 MCG/ACT AEROSOL SOLUTION 1 PUFF INHALATION FOUR TIMES A DAY NEEDED, NOTES: NONE RECENTLY TAKING INCRUSE ELLIPTA 62.5 MCG/INH AEROSOL POWDER BREATH ACTIVATED 1 PUFF INHALATION ONCE A DAY, NOTES: 04/28/17 08 TAKING GABAPENTIN 100 MG CAPSULE 1 CAPSULE ORALLY TWICE A DAY NOT-TAKING ATORVASTATIN CALCIUM 80 MG TABLET 1 TABLET ORALLY ONCE A DAY NOT-TAKING ASPIRIN 325 MG TABLET 1 TABLET ORALLY ONCE A DAY, NOTES: NONE LATELY NOT-TAKING AMITRIPTYLINE HCL 25 MG TABLET 1 TABLET ORALLY AT BEDTIME NEEDED, NOTES: 10/24/16 MEDICATION LIST REVIEWED AND RECONCILED WITH THE PATIENT PAST MEDICAL HISTORY CHRONIC HEPATITIS C - DX 1998 GENOTYPE 1 A, VL 2.5 MILLION, F1 FIBROSIS, LIVER US GALLSTONES 2013, Q80K POLYMORPHISM TREATMENT VIEKIRA PACK/ RIBAVIRIN FOR 12 WEEKS SVR 12 CURED HTN ALCOHOLISM WENT TO DETOX AND REHAB 07/2013 AND 07/22/2014 AND 06/2015 DEPRESSION HX IVDU ALCOHOLIC NEUROPATHY SUSPECTED MS WITH DEMYLINATING PLAQUES IN BRAIN AND THORACIC SPINE VITAMIN B12 DEFICIENY CAPARL TUNNEL BENJAMIN. 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 ASCVD10 (2015) 17.8% ARTHRITIS ALLERGIES ZITHROMAX Z-NATALIA: HIVES: ALLERGY SURGICAL HISTORY PROLAPSED UTERUS 1998 UTERINE RUPTURE 1987 RIGHT LOWER LUNG LOBECTOMY 10/17/15 SOCIAL HISTORY GENERAL: TOBACCO USE ARE YOU A:CURRENT SMOKER HOW MANY CIGARETTES A DAY DO YOU SMOKE?11-20 HOW SOON AFTER YOU WAKE UP DO YOU SMOKE YOUR FIRST CIGARETTE?6-30 MIN HOW OFTEN DO YOU SMOKE CIGARETTES?EVERY DAY PATIENT COUNSELED ON THE DANGERS OF TOBACCO USE AND URGED TO QUIT:02/20/2017 ARE YOU INTERESTED IN QUITTING?THINKING ABOUT QUITTING COUNSELED THE PATIENT ON SMOKING CESSATION, EDUCATION [id number]/29/2017 BMI CARE GOAL FOLLOW-UP ABOVE NORMAL BMI FOLLOW-UPGIVING ENCOURAGEMENT TO EXERCISE ALCOHOL SCREENING DID YOU HAVE A DRINK CONTAINING ALCOHOL IN THE PAST YEAR?YES POINTS3 INTERPRETATIONPOSITIVE HOW OFTEN DID YOU HAVE A DRINK CONTAINING ALCOHOL IN THE PAST YEAR?TWO TO THREE TIMES PER WEEK (3 POINTS) RECREATIONAL DRUG USE DRUG USE?NO CAFFEINE CAFFEINE USE?YES COFFEE TWO A DAY OCCUPATION: UNEMPLOYED. MARITAL STATUS: SINGLE. PAIN CLINIC PFS, CLERGY, PUBLIC HEALTH REFERRALS PFS REFERRAL NEEDED? NO , CLERGY REFERRAL NEEDED? NO , PUBLIC HEALTH REFERRAL NEEDED? NO , WAS THE PROVIDER NOTIFIED OF ANY PERTINENT INFO? YES . PATIENT: ____. HOSPITALIZATION/MAJOR DIAGNOSTIC PROCEDURE [facility] - DEPRESSION/SUICIDAL IDEATION 06/2013 REHAB 06/2015 REVIEW OF SYSTEMS CONSTITUTIONAL: ANY CHANGE IN YOUR MEDICAL CONDITION? YES . CHILLS NO . FEVER NO . INFECTION: DO YOU HAVE NEW INFECTIONS? NO . DO YOU HAVE HISTORY OF MRSA? NO . MUSCULOSKELETAL: ANY NEW PATTERNS OF PAIN OR NUMBNESS? NO . GASTROENTEROLOGY: ANY NEW CHANGE IN BOWEL CONTROL? NO . GENITOURINARY: ANY NEW CHANGE IN BLADDER CONTROL? NO . IS THERE A CHANCE YOU COULD BE ? NO . HEMATOLOGY/LYMPH: DO YOU TAKE ANY BLOOD THINNERS? (FOR EXAMPLE- COUMADIN, PLAVIX, AGGRENOX, PLATEL, PRADAXA, OR XARELTO) NO . WHEN WAS YOUR LAST DOSE? DATE: TIME: . NEUROLOGY: HAVE YOU FALLEN IN THE PAST 6 MONTHS? YES . ANY NEW EXTREMITY NUMBNESS OR WEAKNESS? NO . CARDIOLOGY: DO YOU HAVE A PACEMAKER OR DEFIBRILLATOR? NO . RESPIRATORY: HAVE YOU BEEN SICK IN THE PAST WEEK? NO . FEVER NO . FLU LIKE SYMPTOMS? NO . COUGH NO . INTEGUMENTARY: DO YOU HAVE ANY RASHES OR OPEN SORES? NO . ALLERGIC/IMMUNO: ARE YOU ALLERGIC TO SHELLFISH OR IV DYE? NO . ANY NEW ALLERGIES? NO . PSYCHIATRIC: DO YOU HAVE THOUGHTS OF HURTING YOURSELF OR SOMEONE ELSE? NO . ARE YOU ABUSED, NEGLECTED, OR IN AN UNSAFE ENVIRONMENT? NO . ENDOCRINOLOGY: ARE YOU DIABETIC? NO . OTHER: DO YOU NEED ANY PRESCRIPTIONS? NO . IF YES, PLEASE LIST: ____ . ANY NEW PROBLEMS WITH YOUR MEDICATIONS? NO . WHEN DID YOU LAST EAT? LAST NIGHT . WHEN DID YOU LAST DRINK? 0500 . WHAT DID YOU LAST DRINK? BLACK COFFEE . NAME OF PERSON DRIVING YOU HOME? CAB . DO YOU HAVE ANY OTHER QUESTIONS OR CONCERNS NO . REVIEWED BY: PROVIDER: . VITAL SIGNS WT 228 LBS, HT 62 IN, BMI 41.70 INDEX, BP 129/86 MM HG, HR 71 /MIN, RR 16 /MIN, TEMP 97.0 F, OXYGEN SAT % 97%, NA INITIALS SC 08:52, REVIEWED BY: LS. ASSESSMENTS MYALGIA - M79.1 (PRIMARY) PROCEDURES PN TRIGGER POINT INJECTION WITH STEROIDS PRE PROCEDURE DIAGNOSIS 1. MYALGIA 2. PAIN AT BILATERAL NECK AREA AND BILATERAL SHOULDER AREA POST PROCEDURE DIAGNOSIS 1. MYALGIA 2. PAIN AT BILATERAL NECK AREA AND BILATERAL SHOULDER AREA PROCEDURE TRIGGER POINT INJECTION AT BILATERAL NECK AREA AND BILATERAL SHOULDER AREA SURGEON DR. FLORENCIO KING CASH MANAGEMENT CLERK NONE ANESTHESIA LOCAL PRE PROCEDURE NOTE THE PATIENT HAS A HISTORY OF CHRONIC PAIN AT THE RIGHT AND LEFT NECK AREA AND RIGHT AND LEFT SHOULDER AREA. I EVALUATE THE PATIENT AND REVIEWED THE CHART. THERE IS EVIDENCE OF BANDS OF TISSUE WITH RESTRICTION OF MOVEMENT AND PRESENCE OF TRIGGER POINT AT THE AFFECTED AREA. I WENT OVER THE RISKS, ALTERNATIVES, AND BENEFITS ASSOCIATED WITH THIS PROCEDURE. THE PATIENT WOULD LIKE TO PROCEED AND GIVE CONSENT TO PERFORMED THE PROCEDURE. THE PATIENT DENIES UNEXPLAINABLE WEIGHT LOSS, FEVER, CHILLS, OR NEW CHANGES IN URINARY OR BOWEL CONTROL DESCRIPTION OF PROCEDURE THE PATIENT WAS BROUGHT TO THE PROCEDURE ROOM AND PLACED IN THE SITTING POSITION. THE AREA WAS CLEANED WITH ALCOHOL. THE PROCEDURE WAS DONE USING ASEPTIC STERILE TECHNIQUE. I CHECKED LATERALITY AND THE LEVEL WHERE THE PROCEDURE WAS GOING TO BE PERFORMED WITH THE PATIENT AND THE SUPPORTING STAFF AT THE MOMENT OF THE TIME OUT IN THE PROCEDURE ROOM. USING A 25-GAUGE NEEDLE, TRIGGER POINTS WERE INJECTED AT THE RIGHT AND LEFT NECK AREA AND RIGHT AND LEFT SHOULDER AREA WITH A TOTAL OF 40 ML OF BUPIVACAINE 0.25% AND KENALOG 40 MG. THERE WAS NO EVIDENCE OF BLOOD, PARESTHESIA OR CEREBROSPINAL FLUID DURING THE PROCEDURE. THE PATIENT WAS SENT TO THE RECOVERY ROOM. THE PATIENT WAS MOVING THE EXTREMITIES AND DOING WELL. THERE WAS NO COMPLICATION DURING THE PROCEDURE POST PROCEDURE NOTE THE PATIENT WILL BE SEEN IN A FOLLOW UP IN THE NEXT FEW WEEKS. INSTRUCTIONS WERE GIVEN, QUESTIONS WERE ANSWERED, AND THE PATIENT EXPRESSED UNDERSTANDING AND AGREES WITH THE PLAN. I, JORGE AMADOR, DOCUMENTED THE ABOVE INFORMATION ACTING A SCRIBE FOR DR. KING. I HAVE REVIEWED THE ABOVE DOCUMENT, WRITTEN BY JORGE TINEO AND I VERIFY THAT IT IS ACCURATE PROCEDURE CODES 95877 INJECT TRIGGER POINTS 3/> DISPOSITION & COMMUNICATION FOLLOW UP 3 WEEKS ELECTRONICALLY SIGNED BY FLORENCIO KING MD ON 05/05/2017 AT 07:25 PM EDT DISCLAIMER : THIS IS A VISIT SUMMARY EXTRACTED FROM THE [employer] CHART. IT IS NOT A COPY OF THE [employer] PROGRESS NOTE. ROBERT
== END ==
LOC: M PAIN 08:30
PROVIDERS: ATTEND Anesthesiology
DX: G89.29 Other chronic pain (principal); M79.1 Myalgia; M54.2 Cervicalgia; M25.512 Pain in left shoulder; M25.511 Pain in right shoulder; Z79.899 Other long term (current) drug therapy; F17.210 Nicotine dependence, cigarettes, uncomplicated; Z88.0 Allergy status to penicillin; E78.5 Hyperlipidemia, unspecified; I10 Essential (primary) hypertension; B18.2 Chronic viral hepatitis C; G35 Multiple sclerosis; E55.9 Vitamin D deficiency, unspecified; D75.89 Other specified diseases of blood and blood-forming organs

== ENCOUNTER 2017-05-08 14:36 | Emergency (ER) | payer OTHER ==
[~2017-05-08] VITALS: Ht 160 cm; Wt 102.0 kg
[~2017-05-08 14:36] MED LIST changes: -AUGM875T27 PO; -BENZ200C44 PO; -BUPIVACAINE HCL 0.25% 10 ML VIAL As Ordered ONE; -BUPIVACAINE HCL 0.25% 30 ML VIAL As Ordered ONE; -DIAZ5TAB; -GABA-279; -GABA-279 PO; -INCR1INH; -MUCI600T34 PO; -PRED20TA PO; -TRIAMCINOLONE ACETONIDE SUSP 40 MG/ML VIAL (J3301) As Ordered ONE; -diazePAM 5 MG TAB As Ordered ONE; -oxyCODONE 5MG TAB As Ordered ONE
[2017-05-08] MEDS ORDERED: INCR1INH (14:51)
[2017-05-08] MEDS ORDERED: GABA-279 (14:51)
[2017-05-08] MEDS ORDERED: DIAZ5TAB (14:51)
[2017-05-08] MEDS ORDERED: IPRATROPIUM 0.5MG/ALBUTEROL 2.5MG INH SOL UD 3ML (DUONEB)(J7620) NEB ONE (16:15)
[2017-05-08 16:48] LABS: BASO % 0.2 % (0.0-1.0); EOS # 0.1 K/mm3 (0.0-0.50); EOS % 1.1 % (0.0-3.0); LARGE UNSTAINED CELL # 0.1 K/mm3 (0.0-0.4); LARGE UNSTAINED CELL % 0.8 % (0.0-4.0); LYMPH # 1.2 K/mm3 (1.5-4.5); LYMPH % 10.6 % (24.0-44.0); MEAN CORPUSCULAR HEMOGLOBIN 34.8 pg (27.0-33.0); MEAN CORPUSCULAR HGB CONC 33.7 g/dl (32.0-36.5); MEAN CORPUSCULAR VOLUME 103.4 fl (80.0-96.0); MONO # 0.5 K/mm3 (0.0-0.8); MONO % 4.4 % (0.0-5.0); NEUTROPHILS # 9.6 K/mm3 (1.8-7.7); NEUTROPHILS % 82.8 % (36.0-66.0); PLATELET COUNT, AUTOMATED 239 k/mm3 (150-450); WHITE BLOOD COUNT 11.6 K/mm3 (4.0-10.0)
--- NOTE | 2017-05-08 16:56 | REP ---
Bilateral lower extremity Duplex Doppler venous ultrasound: Real time compression and duplex Doppler interrogation of the bilateral lower extremity deep venous system is performed. Bilaterally, the common femoral, superficial femoral and popliteal veins are fully compressible with transducer pressure and demonstrate normal spontaneous and phasic flow, without evidence of deep venous thrombosis. Impression: No evidence of deep venous thrombosis of the bilateral lower extremity femoral popliteal venous system. Signed by Jori Barcenas MD 05/08/2017 04:47 P
[2017-05-08 17:21] LABS: ALBUMIN 4.1 GM/DL (3.2-5.2); ALBUMIN/GLOBULIN RATIO 1.17 (1.00-1.93); ALKALINE PHOSPHATASE 87 U/L (45-117); ALT/SGPT 22 U/L (12-78); ANION GAP 6 MEQ/L (8-16); AST/SGOT 13 U/L (15-37); BILIRUBIN,DIRECT 0.2 MG/DL (0.0-0.2); BILIRUBIN,TOTAL 0.5 MG/DL (0.2-1.0); BLOOD UREA NITROGEN 15 MG/DL (7-18); CALCIUM LEVEL 10.2 MG/DL (8.8-10.2); CARBON DIOXIDE LEVEL 29 MEQ/L (21-32); CHLORIDE LEVEL 101 MEQ/L (98-107); CREATININE FOR GFR 0.95 MG/DL (0.55-1.02); GLOMERULAR FILTRATION RATE > 60.0 (>45); GLUCOSE, FASTING 106 MG/DL (80-110); POTASSIUM SERUM 4.8 MEQ/L (3.5-5.1); SODIUM LEVEL 136 MEQ/L (136-145); TOTAL PROTEIN 7.6 GM/DL (6.4-8.2)
--- NOTE | 2017-05-08 17:25 | REP ---
CHEST, TWO VIEWS: Two views of the chest are performed and compared to prior study of 02/04/2017. There is elevation of the right hemidiaphragm with adjacent pleural and parenchymal scarring, stable. No acute infiltrate is seen. The heart is not enlarged and the mediastinal silhouette is unchanged. There are mild degenerative changes of the spine. IMPRESSION: No acute pulmonary disease. Stable chronic findings. Signed by Jori Barcenas MD 05/08/2017 07:50 P
[2017-05-08] MEDS ORDERED: BENZ200C44 PO (17:31)
[2017-05-08] MEDS ORDERED: PRED20TA PO (17:31)
[2017-05-08] MEDS ORDERED: MUCI600T34 PO (17:31)
[2017-05-08] MEDS ORDERED: AUGM875T27 PO (17:31)
[2017-05-08 17:45] VITALS: BP 154/76
[2017-05-09] MEDS ORDERED: GABA-279 PO (11:40)
== END 2017-05-08 17:58 | disposition home or self-care (01) ==
LOC: M ED 15:52
DX: J02.0 Streptococcal pharyngitis (principal); R25.2 Cramp and spasm; J44.1 Chronic obstructive pulmonary disease with (acute) exacerbation; J45.909 Unspecified asthma, uncomplicated; I10 Essential (primary) hypertension; B19.20 Unspecified viral hepatitis C without hepatic coma; F41.9 Anxiety disorder, unspecified; F32.9 Major depressive disorder, single episode, unspecified; F17.200 Nicotine dependence, unspecified, uncomplicated; F10.21 Alcohol dependence, in remission; Z79.899 Other long term (current) drug therapy; Z85.118 Personal history of other malignant neoplasm of bronchus and lung; Z88.1 Allergy status to other antibiotic agents

== ENCOUNTER → 2017-05-16 | Outpatient (CLI) | payer OTHER ==
[~2017-05-16] VITALS: Ht 160 cm; Wt 103.4 kg
[~2017-05-16] MED LIST changes: +AUGM875T27 PO; +BENZ200C44 PO; +DIAZ5TAB; +GABA-279; +GABA-279 PO; +INCR1INH; +MUCI600T34 PO; +NS 1,000 ML IV SCH; +PRED20TA PO; +PROPOFOL 200 MG/20 ML VIAL As Ordered ONE
--- NOTE | 2017-05-16 10:36 | ROOR ---
Patient Name: Jared Peterson Procedure Date: 05/16/2017 10:14 AM Date of : 1955 Age: 62 Room: [facility] Gender: Female Note Status: Finalized Procedure: Colonoscopy Indications: High risk colon cancer surveillance: Personal history of colonic polyps Providers: Johnny Chaudhary Jr, MD Referring MD: Magno Qureshi DO Requesting Provider: Medicines: Propofol per Anesthesia Complications: No immediate complications. Procedure: Pre-Anesthesia Assessment: - Prior to the procedure, a History and Physical was performed, and patient medications and allergies were reviewed. The patient is competent. The risks and benefits of the procedure and the sedation options and risks were discussed with the patient. All questions were answered and informed consent was obtained. Patient identification and proposed procedure were verified by the physician and the nurse in the pre-procedure area and in the procedure room. Mental Status Examination: alert and oriented. Airway Examination: normal oropharyngeal airway and neck mobility. Respiratory Examination: clear to auscultation. CV Examination: normal. ASA Grade Assessment: II - A patient with mild systemic disease. After reviewing the risks and benefits, the patient was deemed in satisfactory condition to undergo the procedure. The anesthesia plan was to use moderate sedation / analgesia (conscious sedation). Immediately prior to administration of medications, the patient was re-assessed for adequacy to receive sedatives. The heart rate, respiratory rate, oxygen saturations, blood pressure, adequacy of pulmonary ventilation, and response to care were monitored throughout the procedure. The physical status of the patient was re-assessed after the procedure. The Colonoscope was introduced through the anus and advanced to the cecum, identified by the ileocecal valve. The patient tolerated the procedure fairly well. The quality of the bowel preparation was adequate and good. Findings: The perianal and digital rectal examinations were normal. Pertinent negatives include normal sphincter tone, no palpable rectal lesions and no anal lesion or abnormality was detected. The recto-sigmoid colon, sigmoid colon, descending colon, transverse colon, ascending colon, cecum and ileocecal valve appeared normal. A diminutive polyp was found in the rectum. The polyp was removed with a jumbo cold forceps. Resection and retrieval were complete. Impression: - The recto-sigmoid colon, sigmoid colon, descending colon, transverse colon, ascending colon, cecum and ileocecal valve are normal. - One diminutive polyp in the rectum, removed with a jumbo cold forceps. Resected and retrieved. Recommendation: - Discharge patient to home (ambulatory). - Repeat colonoscopy in 5-10 years for surveillance based on pathology results. Johnny Chaudhary MD Johnny Chaudhary Jr, MD 05/16/2017 10:36:19 AM This report has been signed electronically. Number of Addenda: 0 Note Initiated On: 05/16/2017 10:14 AM Estimated Blood Loss: Estimated blood loss: none.
[2017-05-16 11:05] VITALS: BP 157/94
== END ==
LOC: M OPP 09:15
PROVIDERS: ATTEND Surgery
DX: Z12.11 Encounter for screening for malignant neoplasm of colon (principal); K62.1 Rectal polyp; I10 Essential (primary) hypertension; B19.20 Unspecified viral hepatitis C without hepatic coma; J45.909 Unspecified asthma, uncomplicated; G62.1 Alcoholic polyneuropathy; G35 Multiple sclerosis; F33.9 Major depressive disorder, recurrent, unspecified; F41.9 Anxiety disorder, unspecified; F43.10 Post-traumatic stress disorder, unspecified; G47.9 Sleep disorder, unspecified; D64.9 Anemia, unspecified; E55.9 Vitamin D deficiency, unspecified; E78.00 Pure hypercholesterolemia, unspecified; E66.9 Obesity, unspecified; F17.210 Nicotine dependence, cigarettes, uncomplicated; M19.90 Unspecified osteoarthritis, unspecified site; Z79.899 Other long term (current) drug therapy; Z79.51 Long term (current) use of inhaled steroids; Z79.82 Long term (current) use of aspirin; Z88.1 Allergy status to other antibiotic agents; Z96.9 Presence of functional implant, unspecified

== ENCOUNTER 2017-05-23 11:00 | Outpatient (RCR) | payer OTHER ==
[~2017-05-23 11:00] MED LIST changes: -AUGM875T27 PO; +AUGM875T28 PO; -BACL-67 PO; +BACL1TAB9 PO; -BENZ200C44 PO; +BENZ200C53 PO; +IBUP-1022 PO; -IBUP600T26 PO; -MUCI600T34 PO; +MUCI600T37 PO; -NS 1,000 ML IV SCH; -PROPOFOL 200 MG/20 ML VIAL As Ordered ONE; +TRAZ50TA11 PO; -TRAZ50TA4 PO; +VITA1CAP40 PO; -VITA50003 PO
== END 2017-05-24 ==
LOC: M PT 11:00
PROVIDERS: ATTEND Otolaryngology
DX: R42 Dizziness and giddiness (principal); H81.10 Benign paroxysmal vertigo, unspecified ear; Z51.89 Encounter for other specified aftercare

== ENCOUNTER → 2017-06-04 | Outpatient (REF) | payer OTHER ==
[~2017-06-04] MED LIST changes: +MUCI600T37
[2017-06-04 14:17] LABS: FREE T4 0.89 NG/DL (0.76-1.46)
== END ==
LOC: M SFHCPLAZ 13:37
PROVIDERS: ATTEND Family Medicine
DX: R53.82 Chronic fatigue, unspecified (principal)

== ENCOUNTER 2017-07-15 15:29 | Emergency (ER) | payer OTHER ==
[~2017-07-15] VITALS: Ht 160 cm; Wt 49.4 kg
[~2017-07-15 15:29] MED LIST changes: -MUCI600T37
[2017-07-15 15:35] VITALS: BP 137/79
[2017-07-15] MEDS ORDERED: MUCI600T37 (15:54)
== END 2017-07-15 17:17 | disposition left against medical advice (07) ==
LOC: EDBD 15:29 → M ED 15:29
DX: R06.02 Shortness of breath (principal); Z53.29 Procedure and treatment not carried out because of patient's decision for other reasons

== ENCOUNTER → 2017-09-11 | Outpatient (REF) | payer OTHER ==
[~2017-09-11] MED LIST changes: +MUCI600T37
== END ==
LOC: M SFHCPLAZ 12:32
PROVIDERS: ATTEND Family Medicine
DX: F10.10 Alcohol abuse, uncomplicated (principal)

== ENCOUNTER → 2017-10-10 | Outpatient (CLI) | payer OTHER ==
[2017-10-10 11:25] LABS: FOLATE 9.2 NG/ML
== END ==
LOC: M LAB 09:00
PROVIDERS: ATTEND Family Medicine
DX: F10.10 Alcohol abuse, uncomplicated (principal)

== ENCOUNTER → 2017-10-30 | Outpatient (CLI) | payer OTHER | LOC: M PAIN 11:30 | DX: G89.29 Other chronic pain (principal); M79.1 Myalgia; M54.2 Cervicalgia; B18.2 Chronic viral hepatitis C; I10 Essential (primary) hypertension; F10.20 Alcohol dependence, uncomplicated; F32.9 Major depressive disorder, single episode, unspecified; E53.8 Deficiency of other specified B group vitamins; G56.03 Carpal tunnel syndrome, bilateral upper limbs; M19.90 Unspecified osteoarthritis, unspecified site; F17.210 Nicotine dependence, cigarettes, uncomplicated; Z79.82 Long term (current) use of aspirin; Z79.899 Other long term (current) drug therapy; Z88.8 Allergy status to other drugs, medicaments and biological substances | CPT/HCPCS: G0463 ==

== ENCOUNTER → 2017-12-03 | Outpatient (CLI) | payer MEDICARE ==
[~2017-12-03] MED LIST changes: -/AMLO25TA PO; -/HCTZ25TA PO; -ALBU83IN INH; -ASPI325T PO; -AUGM875T28 PO; -BACL1TAB9 PO; -BENA25CA PO; -BENZ200C53 PO; +BUPIVACAINE HCL 0.25% 10 ML VIAL As Ordered; +BUPIVACAINE HCL 0.25% 30 ML VIAL As Ordered; -CELE20TA PO; -COPA1INJ SC; -DIAZ5TAB; -ESTR125TA PO; -ESTR625TA PO; -FLON0.054; -FLUO10CA8 PO; -FOLITAB11 PO; -GABA-279; -GABA-279 PO; -IBUP-1022 PO; -INCR1INH; -LASI40TA PO; -LISI-538 PO; -LISI5TAB PO; -MELO15TA4 PO; -MUCI600T37; -MUCI600T37 PO; -MYRB25TA PO; -NAPROXYN PO; -NEUR300C PO; -PERCOCET PO; -PRED20TA PO; -PROZ20CA11 PO; -SERT-138 PO; -TRAZ50TA11 PO; +TRIAMCINOLONE ACETONIDE SUSP 40 MG/ML VIAL (J3301) As Ordered; -VIST50CA PO; -VITA10002 PO; -VITA100T92 PO; -VITA1CAP40 PO; -VITMTA PO; -ZEST20TA8 PO; -[UNRECOGNIZED DRUG - CODE] PO; +diazePAM 5 MG TAB As Ordered; +oxyCODONE 5MG TAB As Ordered
== END ==
LOC: M PAIN 14:15
DX: G89.29 Other chronic pain (principal); M25.511 Pain in right shoulder; M54.2 Cervicalgia; M54.6 Pain in thoracic spine; M79.1 Myalgia; I10 Essential (primary) hypertension; F10.21 Alcohol dependence, in remission; F32.9 Major depressive disorder, single episode, unspecified; G62.1 Alcoholic polyneuropathy; D53.8 Other specified nutritional anemias; M19.90 Unspecified osteoarthritis, unspecified site; Z88.1 Allergy status to other antibiotic agents; Z79.51 Long term (current) use of inhaled steroids; Z79.82 Long term (current) use of aspirin; Z79.899 Other long term (current) drug therapy
CPT/HCPCS: J3301

== ENCOUNTER 2018-01-16 18:20 | Emergency (ER) | payer MEDICARE, MEDICAID ==
[2018-01-16 19:55] LABS: HEMOGLOBIN 12.9 g/dl (12.0-16.0); MEAN CORPUSCULAR HEMOGLOBIN 34.1 pg (27.0-33.0); MEAN CORPUSCULAR HGB CONC 33.1 g/dl (32.0-36.5); MEAN CORPUSCULAR VOLUME 103.2 fl (80.0-96.0); PLATELET COUNT, AUTOMATED 185 10^3/uL (150-450); RED BLOOD COUNT 3.78 10^6/uL (4.00-5.40); RED CELL DISTRIBUTION WIDTH 13.2 % (11.5-14.5); WHITE BLOOD COUNT 5.3 10^3/uL (4.0-10.0)
[2018-01-16 20:22] LABS: AMPHETAMINES LEVEL URINE NEGATIVE (NEGATIVE); BARBITURATES URINE NEGATIVE (NEGATIVE); BENZODIAZEPINES URINE NEGATIVE (NEGATIVE); CANNABINOIDS URINE NEGATIVE (NEGATIVE); COCAINE METABOLITE URINE NEGATIVE (NEGATIVE); METHADONE URINE NEGATIVE (NEGATIVE); OPIATES URINE NEGATIVE (NEGATIVE); PHENCYCLIDINE URINE NEGATIVE (NEGATIVE)
[2018-01-16 20:31] LABS: ACETAMINOPHEN LEVEL < 2.0 UG/ML (10.0-30.0); ALBUMIN 3.6 GM/DL (3.2-5.2); ALKALINE PHOSPHATASE 106 U/L (45-117); ALT/SGPT 74 U/L (12-78); ANION GAP 9 MEQ/L (8-16); AST/SGOT 148 U/L (7-37); BILIRUBIN,DIRECT 0.1 MG/DL (0.0-0.2); BILIRUBIN,TOTAL 0.3 MG/DL (0.2-1.0); BLOOD UREA NITROGEN 8 MG/DL (7-18); CALCIUM LEVEL 8.5 MG/DL (8.8-10.2); CARBON DIOXIDE LEVEL 26 MEQ/L (21-32); CHLORIDE LEVEL 107 MEQ/L (98-107); CREATININE FOR GFR 0.76 MG/DL (0.55-1.30); ETHYL ALCOHOL (ETHANOL) 0.265 % (0.000-0.010); GLOMERULAR FILTRATION RATE > 60.0 (>45); GLUCOSE, FASTING 108 MG/DL (70-100); POTASSIUM SERUM 4.2 MEQ/L (3.5-5.1); SALICYLATE LEVEL < 1.7 MG/DL (5.0-30.0); SODIUM LEVEL 142 MEQ/L (136-145); THYROID STIMULATING HORMONE 0.682 uIU/ML (0.358-3.740); TOTAL PROTEIN 7.2 GM/DL (6.4-8.2)
[2018-01-17] MEDS: OXAZEPAM 15 MG CAP PO (00:45)
== END 2018-01-17 07:06 | disposition home or self-care (01) ==
LOC: M ED 01-17 07:06
DX: F10.229 Alcohol dependence with intoxication, unspecified (principal); B19.20 Unspecified viral hepatitis C without hepatic coma; F33.9 Major depressive disorder, recurrent, unspecified; M19.90 Unspecified osteoarthritis, unspecified site; F19.11 Other psychoactive substance abuse, in remission; Z79.890 Hormone replacement therapy; Z79.899 Other long term (current) drug therapy; Z88.1 Allergy status to other antibiotic agents; Z86.69 Personal history of other diseases of the nervous system and sense organs; Z86.39 Personal history of other endocrine, nutritional and metabolic disease; Z98.890 Other specified postprocedural states; Z85.118 Personal history of other malignant neoplasm of bronchus and lung
CPT/HCPCS: G0480

== ENCOUNTER → 2018-02-17 | Outpatient (CLI) | payer MEDICARE, MEDICAID ==
[2018-02-17 15:42] LABS: BLOOD UREA NITROGEN 4 MG/DL (7-18)
[2018-02-17 15:42] LABS: CREATININE FOR GFR 0.91 MG/DL (0.55-1.30); GLOMERULAR FILTRATION RATE > 60.0 (>45)
== END ==
LOC: M LAB 14:58
DX: I10 Essential (primary) hypertension (principal)
CPT/HCPCS: 82565

== ENCOUNTER → 2018-04-23 | Outpatient (REF) | payer MEDICARE, MEDICAID ==
[2018-04-24 12:00] LABS: RHEUMATOID FACTOR QUANT < 10.0 IU/ML (<15.0)
[2018-04-24 12:00] LABS: C REACTIVE PROTEIN QUANTITATIV 1.13 MG/DL (0.00-0.30)
[2018-04-24 12:42] LABS: BASO % 0.3 % (0.0-1.0); EOS # 0.1 10^3/uL (0.0-0.50); EOS % 1.9 % (0.0-3.0); HEMATOCRIT 43.6 % (36.0-47.0); HEMOGLOBIN 14.5 g/dl (12.0-15.5); IMMATURE GRANULOCYTE % 0.5 % (0-3.0); LYMPH # 1.7 10^3/uL (1.5-4.5); LYMPH % 26.5 % (24.0-44.0); MEAN CORPUSCULAR HEMOGLOBIN 34.4 pg (27.0-33.0); MEAN CORPUSCULAR HGB CONC 33.3 g/dl (32.0-36.5); MEAN CORPUSCULAR VOLUME 103.6 fl (80.0-96.0); MONO # 0.5 10^3/uL (0.0-0.8); MONO % 7.9 % (0.0-5.0); NEUTROPHILS # 4.1 10^3/uL (1.8-7.7); NEUTROPHILS % 62.9 % (36.0-66.0); PLATELET COUNT, AUTOMATED 179 10^3/uL (150-450); RED BLOOD COUNT 4.21 10^6/uL (4.00-5.40); RED CELL DISTRIBUTION WIDTH 12.8 % (11.5-14.5); WHITE BLOOD COUNT 6.5 10^3/uL (4.0-10.0)
[2018-04-24 15:30] LABS: ERYTHROCYTE SEDIMENTATION RATE 6 mm/hr (0-30)
[2018-04-26 00:07] LABS: ANTINUCLEAR ANTIBODIES DIRECT Negative (Negative); Lyme Disease IgG/IgM Antibodie <0.91 ISR (0.00-0.90); Lyme Disease IgM Ab Quantitati <0.80 index (0.00-0.79)
== END ==
LOC: M LABDRAW1 11:21
DX: M24.151 Other articular cartilage disorders, right hip (principal); I10 Essential (primary) hypertension
CPT/HCPCS: 86140

== ENCOUNTER 2018-05-13 17:40 | Emergency (ER) | payer MEDICARE, MEDICAID ==
[2018-05-13 18:41] LABS: VENOUS BASE EXCESS -0.5 (-2.0-2.0); VENOUS HCO3 25.5 MEQ/L (23.0-27.0); VENOUS PARTIAL PRESSURE CO2 46.5 mmHg (38.0-50.0); VENOUS PH 7.357 UNITS (7.330-7.430); VENOUS STANDARD HCO3 23.5 MEQ/L; VENOUS TOTAL CO2 26.9 MEQ/L (24.0-28.0)
[2018-05-13 18:46] LABS: BASO % 0.3 % (0.0-1.0); EOS % 0.4 % (0.0-3.0); HEMATOCRIT 45.4 % (36.0-47.0); HEMOGLOBIN 15.7 g/dl (12.0-15.5); IMMATURE GRANULOCYTE % 1.1 % (0-3.0); LYMPH # 1.7 10^3/uL (1.5-4.5); LYMPH % 15.4 % (24.0-44.0); MEAN CORPUSCULAR HEMOGLOBIN 34.6 pg (27.0-33.0); MEAN CORPUSCULAR HGB CONC 34.6 g/dl (32.0-36.5); MONO # 0.8 10^3/uL (0.0-0.8); NEUTROPHILS # 8.4 10^3/uL (1.8-7.7); NEUTROPHILS % 75.8 % (36.0-66.0); PLATELET COUNT, AUTOMATED 164 10^3/uL (150-450); RED BLOOD COUNT 4.54 10^6/uL (4.00-5.40); RED CELL DISTRIBUTION WIDTH 12.3 % (11.5-14.5); WHITE BLOOD COUNT 11.1 10^3/uL (4.0-10.0)
[2018-05-13 19:10] LABS: ALBUMIN 3.7 GM/DL (3.2-5.2); ALBUMIN/GLOBULIN RATIO 0.93 (1.00-1.93); ALKALINE PHOSPHATASE 97 U/L (45-117); ANION GAP 11 MEQ/L (8-16); AST/SGOT 58 U/L (7-37); BILIRUBIN,DIRECT 0.3 MG/DL (0.0-0.2); BILIRUBIN,TOTAL 0.7 MG/DL (0.2-1.0); BLOOD UREA NITROGEN 7 MG/DL (7-18); CALCIUM LEVEL 9.2 MG/DL (8.8-10.2); CARBON DIOXIDE LEVEL 26 MEQ/L (21-32); CHLORIDE LEVEL 103 MEQ/L (98-107); CPK CREATINE PHOSPHOKINASE 85 U/L (26-192); CREATININE FOR GFR 0.96 MG/DL (0.55-1.30); GLOMERULAR FILTRATION RATE > 60.0 (>45); GLUCOSE, FASTING 134 MG/DL (70-100); POTASSIUM SERUM 3.8 MEQ/L (3.5-5.1); SODIUM LEVEL 140 MEQ/L (136-145); TOTAL PROTEIN 7.7 GM/DL (6.4-8.2); TROPONIN I < 0.02 NG/ML (< 0.10)
[2018-05-13 19:16] LABS: ALT/SGPT 67 U/L (12-78); CK-MB VALUE MASS 1.6 NG/ML (<3.6); MB/CK RELATIVE INDEX 1.88 (< OR =4); NT-PRO BNP 1624 PG/ML (<125)
[2018-05-13] MEDS: dexameTHASONE 20 MG/5 ML VIAL (J1100) IV (20:10)
[2018-05-13] MEDS ORDERED: ISOVUE-370 76% 100ML VIAL (Q9967) As Ordered (20:10)
[2018-05-13] MEDS: IPRATROPIUM 0.5MG/ALBUTEROL 2.5MG INH SOL UD 3ML (DUONEB)(J7620) NEB (20:37)
[2018-05-13 21:12] LABS: INR 0.99; PROTHROMBIN TIME 13.2 SECONDS (12.4-14.5)
[2018-05-13 21:13] LABS: PARTIAL THROMBOPLASTIN TIME 26.9 SECONDS (26.8-37.9)
[2018-05-13] MEDS ORDERED: WARFARIN SOD 5 MG TAB PO (21:15)
[2018-05-13] MEDS ORDERED: ENOXAPARIN 100MG/1ML SYRINGE (J1650) SC (21:15)
[2018-05-13] MEDS ORDERED: ENOXAPARIN 120 MG/0.8 ML SYR (J1650) SC (21:15)
== END 2018-05-13 21:53 | disposition left against medical advice (07) ==
LOC: M ED 17:40
DX: I26.99 Other pulmonary embolism without acute cor pulmonale (principal); R91.1 Solitary pulmonary nodule; K76.0 Fatty (change of) liver, not elsewhere classified; K80.20 Calculus of gallbladder without cholecystitis without obstruction; Z87.81 Personal history of (healed) traumatic fracture; J84.10 Pulmonary fibrosis, unspecified; I10 Essential (primary) hypertension; J44.9 Chronic obstructive pulmonary disease, unspecified; K21.9 Gastro-esophageal reflux disease without esophagitis; Z86.19 Personal history of other infectious and parasitic diseases; F32.9 Major depressive disorder, single episode, unspecified; F10.21 Alcohol dependence, in remission; Z85.118 Personal history of other malignant neoplasm of bronchus and lung; Z72.0 Tobacco use; Z53.21 Procedure and treatment not carried out due to patient leaving prior to being seen by health care provider

== ENCOUNTER → 2018-11-03 | Outpatient (CLI) | payer MEDICARE ==
[~2018-11-03] MED LIST changes: -BUPIVACAINE HCL 0.25% 10 ML VIAL As Ordered; -BUPIVACAINE HCL 0.25% 30 ML VIAL As Ordered; +ISOVUE-370 76% 100ML VIAL (Q9967) As Ordered; -TRIAMCINOLONE ACETONIDE SUSP 40 MG/ML VIAL (J3301) As Ordered; -diazePAM 5 MG TAB As Ordered; -oxyCODONE 5MG TAB As Ordered
[2018-11-03 14:16] LABS: ANION GAP 5 MEQ/L (8-16); BLOOD UREA NITROGEN 3 MG/DL (7-18); CALCIUM LEVEL 9.6 MG/DL (8.8-10.2); CARBON DIOXIDE LEVEL 29 MEQ/L (21-32); CHLORIDE LEVEL 103 MEQ/L (98-107); CREATININE FOR GFR 0.85 MG/DL (0.55-1.30); GLOMERULAR FILTRATION RATE > 60.0 (>45); GLUCOSE, FASTING 122 MG/DL (70-100); POTASSIUM SERUM 4.6 MEQ/L (3.5-5.1); SODIUM LEVEL 137 MEQ/L (136-145)
== END ==
LOC: M RAD 13:19
DX: R91.1 Solitary pulmonary nodule (principal); Z86.711 Personal history of pulmonary embolism
CPT/HCPCS: Q9967

== ENCOUNTER → 2019-01-15 | Outpatient (CLI) | payer MEDICARE ==
[~2019-01-15] MED LIST changes: +/AMLO25TA PO; +/HCTZ25TA PO; +ALBU83IN INH; +ASPI325T PO; +AUGM875T28 PO; +BACL1TAB9 PO; +BENA25CA PO; +BENZ200C70 PO; +CELE20TA PO; +COMBAER6; +COMBAER6 INH; +COPA1INJ SC; +DIAZ5TAB; +ELIQ5TAB PO; +ESTR125TA PO; +ESTR625TA PO; +FLON0.054; +FLUO10CA8 PO; +FOLITAB11 PO; +GABA-1171; +GABA-1171 PO; +HYDR-3363 PO; +IBUP-1022 PO; +INCR1INH; +INCR1INH INH; -ISOVUE-370 76% 100ML VIAL (Q9967) As Ordered; +LASI40TA9 PO; +LISI-538 PO; +LISI5TAB PO; +LOSA50TA88; +LOSA50TA88 PO; +MELO15TA28 PO; +MUCI600T37; +MUCI600T37 PO; +MYRB25TA PO; +NAPR1TAB86 PO; +NAPROXYN PO; +NEUR300C PO; +PATIENT COMMENT; +PERCOCET PO; +PRED20TA PO; +PROZ20CA11 PO; +SERT-138 PO; +TRAZ-160 PO; +VIST50CA PO; +VITA10002 PO; +VITA100T92 PO; +VITA50005 PO; +VITA500T3 PO; +VITATAB11 PO; +VITMTA PO; +ZEST20TA8 PO; +[UNRECOGNIZED DRUG - CODE] PO
--- NOTE | 2019-01-15 14:02 | REP ---
CT of the chest without IV contrast: Comparisons are the chest CT studies dated 11/03/2018 and 05/13/2018. The the patient has known left upper lobe lung nodule. The nodule today measures 12 mm. Next line. The nodule measured 12 mm and 11/03/2018. The nodule measured 8 mm on 05/13/2018. No other lung nodules or masses are identified. There are no acute infiltrates or pleural effusions. There is discoid atelectasis in the lingula. No mediastinal lymph node enlargement is identified. No axillary lymph node enlargement is identified. The study is insensitive for hilar lymph node enlargement in the absence of IV contrast. The unenhanced thoracic aorta is unremarkable. Cardiac size is normal. There are calcifications versus surgical clips posteriorly in the right hilus, unchanged from 11/03/2018 but not present on 05/13/2018. The visualized upper abdominal contents demonstrate hepato steatosis and cholelithiasis but otherwise unremarkable. No adrenal mass is identified. Impression: Left upper lobe lung nodule as described. Calcifications versus surgical clips posteriorly in the right hilus. Cholelithiasis. Hepato steatosis. Electronically Signed by Jori Shoemaker MD 01/15/2019 01:52 P
== END ==
LOC: M RAD 13:15
PROVIDERS: ATTEND Internal Medicine Pulmonary Disease
DX: R91.1 Solitary pulmonary nodule (principal)

== ENCOUNTER → 2019-01-27 | Outpatient (REF) | payer MEDICARE ==
[~2019-01-27] MED LIST changes: +MULT1TAB10 PO; +RANI1SYP PO
[2019-01-27 18:36] LABS: INR 1.18; PARTIAL THROMBOPLASTIN TIME 31.7 SECONDS (25.4-37.6); PROTHROMBIN TIME 15.2 SECONDS (12.1-14.4)
== END ==
LOC: M LAB REF 17:04
PROVIDERS: ATTEND Internal Medicine Pulmonary Disease
DX: R91.1 Solitary pulmonary nodule (principal)

== ENCOUNTER → 2019-01-29 | Outpatient (CLI) | payer MEDICARE ==
--- NOTE | 2019-01-29 15:33 | PFTRPT ---
Height: 62.75 Inches Weight: 274.00 Lbs BSA: 2.20 Diagnosis: R91.1 DATE OF PROCEDURE: 01/29/2019 ORDERED BY: Dr. Ambriz Spirometry: Pre and post bronchodilator study of excellent technical quality. Forced vital capacity normal. FEV1 in proportion. Obstructive index is, therefore, normal. Flow Volume Loop: Expiratory limb of the flow volume loop does suggest some nonspecific flow rate limitation. Borderline bronchodilator response identified. Lung Volumes: Total lung capacity normal. Residual volume borderline for air trapping. Diffusing Capacity: Diffusing capacity, although reduced, is appropriate for alveolar volume. Hemoglobin: Hemoglobin acceptable at 13.1. Airway Mechanics: Airway resistance and conductance are normal. IMPRESSION: Mild diffusing capacity impairment with suspected air trapping and nonspecific flow rate limitation. Please correlate clinically. MTDD
== END ==
LOC: M CARPUL 13:55
PROVIDERS: ATTEND Internal Medicine Pulmonary Disease
DX: R91.1 Solitary pulmonary nodule (principal)

== ENCOUNTER 2019-02-03 05:47 | Day surgery (SDC) | payer MEDICARE ==
[~2019-02-03] VITALS: Ht 157.5 cm; Wt 124.7 kg
[2019-02-03] MEDS ORDERED: LIDOCAINE 1% MDV 20ML VIAL As Ordered ONE (06:36)
[2019-02-03] MEDS ORDERED: CETACAINE SPRAY 5GM As Ordered ONE (06:37)
[2019-02-03] MEDS ORDERED: LIDOCAINE VISCOUS 2% SOLN 15ML UDC As Ordered ONE (06:37)
[2019-02-03] MEDS ORDERED: THROMBIN SOLN 5,000 UNITS VIAL As Ordered ONE (06:38)
[2019-02-03] MEDS ORDERED: LIDOCAINE 2% INJ 100 MG/5 ML SDV (FOR ANES.) As Ordered ONE (06:54)
[2019-02-03] MEDS ORDERED: PROPOFOL 200 MG/20 ML VIAL As Ordered ONE ×2 (06:54→08:11)
[2019-02-03] MEDS ORDERED: SUGAMMADEX SODIUM 500 MG/5 ML VIAL (BRIDION) As Ordered ONE (06:54)
[2019-02-03] MEDS ORDERED: ROCURONIUM BROMIDE 50 MG/5 ML VIAL As Ordered ONE (06:54)
[2019-02-03] MEDS ORDERED: MIDAZOLAM INJ 2 MG/2 ML VIAL (J2250) As Ordered ONE (06:55)
[2019-02-03] MEDS ORDERED: dexameTHASONE 4 MG/ML 1ML VIAL (J1100) As Ordered ONE (06:55)
[2019-02-03] MEDS ORDERED: ONDANSETRON 4MG/2ML VIAL (J2405) As Ordered ONE (06:55)
[2019-02-03] MEDS ORDERED: LR 1,000 ML IV ONE (07:00)
[2019-02-03] MEDS ORDERED: KETAMINE HCL 200 MG/20 ML VIAL As Ordered ONE (07:21)
[2019-02-03] MEDS ORDERED: ALBUTEROL 6.7GM INHALER **FOR ANES. CART/OMNICELL ONLY As Ordered ONE (08:26)
--- NOTE | 2019-02-03 09:03 | RO ---
DATE OF PROCEDURE: 02/03/2019 PREPROCEDURE DIAGNOSIS: Solitary pulmonary nodule left upper lobe. POSTPROCEDURE DIAGNOSIS: Solitary pulmonary nodule left upper lobe. PROCEDURE: Fiberoptic bronchoscopy with electromagnetic navigational assistance done under fluoroscopic guidance. SURGEON: Dustin Ambriz MD STONEWORK TRACER: ANESTHESIA: General. INFORMED CONSENT: Was obtained prior to the procedure. OTHER MEDICATIONS USED: Topical thrombin 5000 units via the bronchoscope. DESCRIPTION OF PROCEDURE: After the patient was identified and the above anesthesia given, the fiberoptic bronchoscope was passed via the endotracheal tube. It was found to be in good position approximately 2 cm above the rob. All segments and subsegments of upper and lower lobes on the left easily identified and widely patent. Some secretions were noted and easily suctioned clear. The right lung was then entered. Upper lobe and middle lobe easily identified. The bronchus intermedius widely patent. The stump of the right lower lobe appeared reasonable. Percepta brushes were done of the right mainstem bronchus. The electromagnetic navigation bronchoscopy (ENB) portion of the examination was then begun. After satisfactory registration, the catheter was navigated to the lesion in question. Position was confirmed via fluoroscopy and was marked. Fine-needle aspirate, Gentec aspirate, as well as biopsies and washes were all done of the area. A needle brush was employed, as well. Minimal bleeding was encountered. This was controlled with saline lavage and topical thrombin. The area was then re-lavaged. When satisfactory hemostasis was assured, the scope was then withdrawn and the procedure terminated. Fluoroscopic examination done immediately postprocedure showed no evidence of pneumothorax. Care was then turned over to anesthesia for extubation. Chest x-ray is ordered for 1 hour postprocedure. No immediate complications of the procedure were identified.
[2019-02-03] MEDS ORDERED: HYDROMORPHONE HCL 0.5 MG/ 0.5 ML SYRINGE (J1170 PER 1) IV PRN (10:15)
[2019-02-03] MEDS ORDERED: LR 1,000 ML IV SCH (10:15)
[2019-02-03] MEDS ORDERED: fentaNYL 100 MCG/2 ML INJECTION (J3010) IV PRN (10:15)
[2019-02-03 10:20] VITALS: BP 164/94
--- NOTE | 2019-02-03 10:33 | REP ---
Chest one-view HISTORY: Postop Comparison: 05/14/2018 There is elevation of the right hemidiaphragm. Linear densities are present in the right lower lobe consistent with scar. Patchy density is present in the left upper lobe consistent with atelectasis or infiltrate. The heart is normal in size. The pulmonary vasculature is normal in appearance. Impression: 1. Right lower lobe scarring. 2. Left upper lobe atelectasis or infiltrate. Electronically Signed by Justo Gallegos MD 02/03/2019 10:25 A
== END 2019-02-03 10:46 | disposition home or self-care (01) ==
LOC: M SDC 05:47
PROVIDERS: ATTEND Internal Medicine Pulmonary Disease
DX: R91.1 Solitary pulmonary nodule (principal); R06.02 Shortness of breath; Z85.118 Personal history of other malignant neoplasm of bronchus and lung; F17.210 Nicotine dependence, cigarettes, uncomplicated; K21.9 Gastro-esophageal reflux disease without esophagitis; G25.81 Restless legs syndrome; F41.9 Anxiety disorder, unspecified; F32.9 Major depressive disorder, single episode, unspecified; J44.9 Chronic obstructive pulmonary disease, unspecified; Z79.899 Other long term (current) drug therapy; Z79.51 Long term (current) use of inhaled steroids
CPT/HCPCS: 31623; 31627; 31628; 31629; 71045; 76000; 87070; 87102; 87116; 87205; 87206; 88104; 88173; 88305; 88313; J1100; J2250; J2405

== ENCOUNTER 2019-03-11 13:57 | Emergency (ER) | payer MEDICARE ==
[~2019-03-11] VITALS: Ht 160 cm; Wt 113.6 kg
[~2019-03-11 13:57] MED LIST changes: -/AMLO25TA PO; -/HCTZ25TA PO; +ASPI-1 PO; -ASPI325T PO; +HYDR-3644 PO; +NORV2TAB PO
[2019-03-11 14:02] VITALS: BP 162/74
== END 2019-03-11 16:18 | disposition left against medical advice (07) ==
LOC: M ED 13:57
DX: Z53.21 Procedure and treatment not carried out due to patient leaving prior to being seen by health care provider (principal)

== ENCOUNTER → 2019-04-22 | Outpatient (CLI) | payer MEDICARE ==
[2019-04-22 17:51] LABS: BLOOD UREA NITROGEN 5 MG/DL (7-18); CREATININE FOR GFR 0.95 MG/DL (0.55-1.30); GLOMERULAR FILTRATION RATE > 60.0 (>45)
[2019-04-22 17:58] LABS: INR 1.18; PROTHROMBIN TIME 15.2 SECONDS (12.1-14.4)
[2019-04-22 17:59] LABS: PARTIAL THROMBOPLASTIN TIME 34.4 SECONDS (25.4-37.6)
== END ==
LOC: M LAB 16:08
PROVIDERS: ATTEND Thoracic Surgery (Cardiothoracic Vascular Surgery)
DX: Z01.812 Encounter for preprocedural laboratory examination (principal); R91.1 Solitary pulmonary nodule; Z86.711 Personal history of pulmonary embolism; E78.5 Hyperlipidemia, unspecified; R06.02 Shortness of breath; I11.9 Hypertensive heart disease without heart failure; I27.81 Cor pulmonale (chronic); R60.0 Localized edema; R94.31 Abnormal electrocardiogram [ECG] [EKG]

== ENCOUNTER → 2019-04-22 | Outpatient (CLI) | payer MEDICARE ==
[2019-04-22 17:47] LABS: CHOLESTEROL RISK RATIO 5.535 (<5)
== END ==
LOC: M LAB 15:59
PROVIDERS: ATTEND Internal Medicine
DX: E78.5 Hyperlipidemia, unspecified (principal)

== ENCOUNTER → 2019-04-22 | Outpatient (CLI) | payer MEDICARE ==
[2019-04-22 18:08] LABS: ALBUMIN 3.1 GM/DL (3.2-5.2); BLOOD UREA NITROGEN 6 MG/DL (7-18); CALCIUM LEVEL 9.8 MG/DL (8.8-10.2); CARBON DIOXIDE LEVEL 31 MEQ/L (21-32); CHLORIDE LEVEL 98 MEQ/L (98-107); CREATININE FOR GFR 0.91 MG/DL (0.55-1.30); GLOMERULAR FILTRATION RATE > 60.0 (>45); GLUCOSE, FASTING 100 MG/DL (70-100); NT-PRO BNP 277 PG/ML (<125); PHOSPHORUS LEVEL 2.6 MG/DL (2.5-4.9); POTASSIUM SERUM 3.6 MEQ/L (3.5-5.1); SODIUM LEVEL 139 MEQ/L (136-145)
== END ==
LOC: M LAB 16:04
PROVIDERS: ATTEND Internal Medicine Cardiovascular Disease
DX: R06.02 Shortness of breath (principal); I11.9 Hypertensive heart disease without heart failure; I27.81 Cor pulmonale (chronic); R60.0 Localized edema; R94.31 Abnormal electrocardiogram [ECG] [EKG]

== ENCOUNTER 2019-10-01 12:07 | Emergency (ER) | payer MEDICARE ==
[~2019-10-01] VITALS: Ht 160 cm; Wt 108.0 kg
[~2019-10-01 12:07] MED LIST changes: +CYAN100049 PO; +CYAN500T8 PO; -TRAZ-160 PO; +TRAZ-252 PO; -VITA10002 PO; -VITA500T3 PO
[2019-10-01] MEDS ORDERED: OMEP10CASR PO (12:20)
[2019-10-01] MEDS ORDERED: ELIQ2.5T PO (12:20)
[2019-10-01 13:41] LABS: HEMATOCRIT 38.6 % (36.0-47.0); HEMOGLOBIN 12.9 g/dl (12.0-15.5); MEAN CORPUSCULAR HEMOGLOBIN 37.3 pg (27.0-33.0); MEAN CORPUSCULAR HGB CONC 33.4 g/dl (32.0-36.5); MEAN CORPUSCULAR VOLUME 111.6 fl (80.0-96.0); PLATELET COUNT, AUTOMATED 126 10^3/uL (150-450); RED BLOOD COUNT 3.46 10^6/uL (4.00-5.40); WHITE BLOOD COUNT 7.1 10^3/uL (4.0-10.0)
--- NOTE | 2019-10-01 14:29 | REP ---
Pelvic sonography: History: Bilateral pelvic pain. History of fibroids. Findings: Transabdominal and transvaginal scanning are performed. Uterine dimensions are normal in 7.6 x 4.1 x 5.2 cm. Endometrial echo is 0.5 cm thick. Limited visualization due to patient body habitus. No uterine mass lesion is identified. No free fluid is noted. Neither ovary could be seen transabdominally or transvaginally. No adnexal mass or free fluid. Visualized bladder lezama are smooth. Impression: Normal size uterus. Neither ovary could be identified. No evidence of adnexal mass or free fluid. Electronically Signed by Ty Tafoya MD 10/01/2019 03:48 P
[2019-10-01 15:52] VITALS: BP 155/67
[2019-10-01 15:58] LABS: CHLAMYDIA DNA AMPLIFICATION NEGATIVE (NEGATIVE); GC DNA AMPLIFICATION NEGATIVE (NEGATIVE)
== END 2019-10-01 16:28 | disposition home or self-care (01) ==
LOC: M ED 12:07
DX: B18.2 Chronic viral hepatitis C (principal); N89.8 Other specified noninflammatory disorders of vagina; C34.90 Malignant neoplasm of unspecified part of unspecified bronchus or lung; E78.5 Hyperlipidemia, unspecified; G35 Multiple sclerosis; I10 Essential (primary) hypertension; I48.91 Unspecified atrial fibrillation; Z79.899 Other long term (current) drug therapy; Z88.1 Allergy status to other antibiotic agents

== ENCOUNTER 2019-11-04 23:17 | Inpatient (IN) | payer MEDICARE, MEDICAID ==
[~2019-11-04] VITALS: Ht 160 cm; Wt 101.2 kg
[~2019-11-04 23:17] MED LIST changes: +ELIQ2.5T PO; +OMEP10CASR PO
[2019-11-05] VITALS (9 sets, daily range): BP systolic 109–165; BP diastolic 53–72
[2019-11-05] MEDS ORDERED: SERT-138 PO ×2 (00:13→05:17)
[2019-11-05] MEDS ORDERED: SPIR-10 PO ×2 (00:13→05:17)
[2019-11-05] MEDS ORDERED: NS 1,000 ML IV ONE (00:30)
[2019-11-05 00:51] LABS: BASO % 0.5 % (0.0-1.0); EOS # 0.1 10^3/uL (0.0-0.5); HEMOGLOBIN 14.3 g/dl (12.0-15.5); LYMPH # 1.4 10^3/uL (1.5-5.0); LYMPH % 22.8 % (24.0-44.0); MEAN CORPUSCULAR HEMOGLOBIN 35.6 pg (27.0-33.0); MEAN CORPUSCULAR VOLUME 104.5 fl (80.0-96.0); MONO # 0.5 10^3/uL (0.0-0.8); MONO % 7.6 % (0.0-5.0); NEUTROPHILS # 4.2 10^3/uL (1.5-8.5); NEUTROPHILS % 67.1 % (36.0-66.0); PLATELET COUNT, AUTOMATED 103 10^3/uL (150-450); RED BLOOD COUNT 4.02 10^6/uL (4.00-5.40); WHITE BLOOD COUNT 6.2 10^3/uL (4.0-10.0)
[2019-11-05 00:57] LABS: ACETAMINOPHEN LEVEL < 2.0 UG/ML (10.0-30.0); ALBUMIN 2.6 GM/DL (3.2-5.2); ALT/SGPT 136 U/L (12-78); BILIRUBIN,DIRECT 0.8 MG/DL (0.0-0.2); BILIRUBIN,TOTAL 1.4 MG/DL (0.2-1.0); BLOOD UREA NITROGEN 6 MG/DL (7-18); CARBON DIOXIDE LEVEL 29 MEQ/L (21-32); CHLORIDE LEVEL 96 MEQ/L (98-107); CK-MB VALUE MASS 17.5 NG/ML (<3.6); CPK CREATINE PHOSPHOKINASE 871 U/L (26-192); CREATININE FOR GFR 0.57 MG/DL (0.55-1.30); ETHYL ALCOHOL (ETHANOL) 0.063 % (0.000-0.010); GLOMERULAR FILTRATION RATE > 60.0 (>45); GLUCOSE, FASTING 98 MG/DL (70-100); MB/CK RELATIVE INDEX 2.01 (< OR =4); POTASSIUM SERUM 2.7 MEQ/L (3.5-5.1); SALICYLATE LEVEL 6.3 MG/DL (5.0-30.0); SODIUM LEVEL 136 MEQ/L (136-145); TOTAL PROTEIN 6.6 GM/DL (6.4-8.2); TROPONIN I < 0.02 NG/ML (< 0.10)
--- NOTE | 2019-11-05 01:05 | REPVR ---
PROCEDURE INFORMATION: Exam: CT Head Without Contrast Exam date and time: 11/05/2019 12:21 AM Age: 64 years old Clinical history: Altered mental status/memory loss TECHNIQUE: Imaging protocol: Computed tomography of the head without contrast. Radiation optimization: All CT scans at this facility use at least one of these dose optimization techniques: automated exposure control; mA and/or kV adjustment per patient size (includes targeted exams where dose is matched to clinical indication); or iterative reconstruction. COMPARISON: CT Head without contrast 03/01/2017 5:32 PM FINDINGS: Limitations: Patient motion. Brain: Mild volume loss. Mild decreased attenuation of the supratentorial white matter is likely secondary to chronic microvascular ischemia. No gross acute intracranial hemorrhage. No midline shift. Ventricles: No hydrocephalus. Bones/joints: No definite acute calvarial fracture. Sinuses: Visualized sinuses are unremarkable. No fluid levels. Mastoid air cells: Visualized mastoid air cells are well aerated. Soft tissues: Unremarkable. IMPRESSION: Patient motion without gross acute intracranial abnormality. Electronically signed by: Kishore Gandara On 11/05/2019 01:05:06 AM
[2019-11-05 01:20] LABS: MAGNESIUM LEVEL 1.8 MG/DL (1.8-2.4)
[2019-11-05 02:09] LABS: OSMOLALITY SERUM 294 MOSM/KG (280-301)
[2019-11-05] MEDS ORDERED: LORazepam 2 MG/ML VIAL (J2060) IV STA (02:18)
[2019-11-05] MEDS ORDERED: PIPERACILLIN/TAZOBACTAM SOD 3.375 GM in D5W MINI-BAG PLUS 50 ML IV ONE (02:30)
[2019-11-05 02:39] LABS: AMPHETAMINES LEVEL URINE NEGATIVE (NEGATIVE); BARBITURATES URINE NEGATIVE (NEGATIVE); BENZODIAZEPINES URINE POSITIVE (NEGATIVE); CANNABINOIDS URINE NEGATIVE (NEGATIVE); COCAINE METABOLITE URINE NEGATIVE (NEGATIVE); METHADONE URINE NEGATIVE (NEGATIVE); OPIATES URINE NEGATIVE (NEGATIVE); PHENCYCLIDINE URINE NEGATIVE (NEGATIVE)
[2019-11-05] MEDS ORDERED: POTASSIUM CHLORIDE 10 MEQ SR TABLET PO ONE (03:00)
[2019-11-05] MEDS ORDERED: KCL 10MEQ/100ML SWI (KRUN) 10 MEQ in IV 1 EA IV ONE ×2 (03:00→05:00)
[2019-11-05] MEDS ORDERED: LORazepam 2 MG/ML VIAL (J2060) As Ordered ONE (03:09)
[2019-11-05] MEDS ORDERED: AMMONIA AROMATIC INHALANT (FLOOR STOCK) As Ordered ONE (04:33)
[2019-11-05] MEDS ORDERED: HYDR50TA70 PO (05:17)
[2019-11-05] MEDS ORDERED: ELIQ2.5T PO (05:17)
[2019-11-05] MEDS ORDERED: GABA-843 PO (05:17)
[2019-11-05] MEDS ORDERED: CHLO125TA PO (05:17)
[2019-11-05] MEDS ORDERED: OMEP-172 PO (05:17)
[2019-11-05] MEDS ORDERED: LORazepam 2 MG TAB PO PRN (05:30)
[2019-11-05] MEDS ORDERED: MOM 30ML SUSPENSION UDC PO PRN (05:30)
[2019-11-05] MEDS ORDERED: ACETAMINOPHEN TAB 650MG DOSE (2X325MG) PO PRN (05:30)
[2019-11-05] MEDS ORDERED: HumaLOG INSULIN (NovoLOG) PER UNIT SC SCH (05:45)
[2019-11-05] MEDS: HumaLOG INSULIN (NovoLOG) PER UNIT SC SCH ×4 (06:00→23:17)
[2019-11-05] MEDS: THIAMINE 100 MG TAB PO SCH ×2 (06:00→20:59)
[2019-11-05 06:24] LABS: ABG BASE EXCESS 3.4 (-2.0-2.0); ABG HCO3 26.9 MEQ/L (22.0-26.0); ABG O2 SATURATION 94.6 % (95.0-99.0); ABG PARTIAL PRESSURE CO2 37.3 mmHg (35.0-45.0); ABG PARTIAL PRESSURE O2 71.7 mmHg (75.0-100.0); ABG STANDARD HCO3 27.4 MEQ/L (22.0-26.0); ABG TOTAL CO2 28.1 MEQ/L (23.0-31.0); ABG pH (ARTERIAL) 7.476 UNITS (7.350-7.450)
--- NOTE | 2019-11-05 06:30 | HPEPDOC ---
[facility] Medical History & Physical Date of Admission Nov 05, 2019 Date of Service: Nov 05, 2019 Primary Care Physician: FRANK JERNIGAN MD Attending Physician: ELI TA MD History and Physical CHIEF COMPLAINT: altered mental status HISTORY OF PRESENT ILLNESS: This is a 64-year-old female with a pertinent past medical history of alcohol abuse who presented to [facility] via EMS for altered mental status. Patient was lethargic on exam the majority of the history was provided by the report. Per EMS patient was last seen by caregiver on 11/02/2019 at approximately 11 PM. Is documented that EMS was called because the patient fell but no injuries was noted. When they arrived at the scene the possible altered mental status. But sugar at that time was 128 and it was stated vitals were within normal limits and she was sinus rhythm on monitor. Patient does have a history of alcohol abuse and she was found with her bottles on the ground. In the ER temperature was found at 90.3 and she was placed under heat lamps and Bear hugger. CT of the head was negative for bleed. Alcohol level was 0.06 she was given care 0.5 mg of Ativan, potassium chloride and 1 dose of Zosyn. REVIEW OF SYSTEMS: Unable to assess patient for she does not participate in PAST MEDICAL HISTORY: Obtained from reviewing [employer] 1. Chronic Hepatitis C - Dx 1998 2. HTN. 3. Alcoholism went to [facility] and rehab 07/2013 and 07/22/2014 and 06/2015. 4. Depression 5. HX IVDU 6. Alcoholic neuropathy. 7. Suspected MS with demylinating plaques in brain and thoracic spine. 8. Vitamin B12 deficieny. 9. Bilateral carpal tunnel 10. Hx of Moderately differentiated adenocarcinomal of R lung. 11. Arthritis. 12. History of massive PE in 2017 PAST SURGICAL HISTORY: Obtained from reviewing [employer] 1. Prolapsed Uterus 1998 2. Uterine Rupture 1987 3. Right lower lung lobectomy 10/17/15 4. Bronchoscopy 01/2019 SOCIAL HISTORY: Lives with: By herself, Employment: Unemployed, Tobacco use: Current smoker. ETOH: Heavy alcohol user, Illicit drug use: Past IV drug user CODE STATUS: Full code FAMILY HISTORY: Unable to assess patient for she does not participate in ALLERGIES: Please see below HOME MEDICATIONS: Please see below. PHYSICAL EXAMINATION: VITAL SIGNS: See below. GENERAL: 64-year-old female lying in bed with Bear markers in place and he plans. Does not appear in acute distress. But dozes off during exam and does not maintain conversation s/p Ativan. HEENT: Pupils are equal round and reactive atraumatic normocephalic. Moist mucous membranes with poor dentition. No JVD noted CARDIOVASCULAR: Heart sounds difficult to assess due to adventitious lung sounds RESPIRATORY: Diffuse rhonchi appreciated especially the upper respiratory tract. Patient unable to follow semantically her throat for she continued to dose off during exam ABDOMINAL: Bowel sounds in all 4 quadrants soft nontender obese abdomen EXTREMITIES: No clubbing cyanosis or edema NEUROLOGICAL: No obvious focal deficit noted. LABORATORY DATA: See below. MICROBIOLOGY: Please see below. IMAGIN11/05/[address] - IMPRESSION: Patient motion without gross acute intracranial abnormality. Chest x-rayofficial report still pending ASSESSMENT & PLAN: This is a 64-year-old female with a pertinent past medical history of alcohol abuse who will be admitted for management of hypothermia. PROBLEMS: 1. Hypothermia possibly due to alcohol withdrawal versus sepsis. She does not have tachycardia, tachypnea or a leukocytosis. She did have a dirty UA which did show positive leukocyte esterase and urine cultures are currently pending. She i nitially got a lactic acid of 3.3 at admission. Well repeat the lactic acid. s/p 1 Dose of Zosyn in the ER. She appeared rhonchorous on exam. Chest x-ray was negative for a pneumonia. Well repeat CBC, obtain pro-calcitonin, CRP and ESR as well. We will follow the cultures. Pending the repeat of the labs and clinical response see if patient needs continued antibiotics. Bear hugger to achieve of basal temperature of 97-98 Celsius. Remote telemetry. 2. Multifactorial Metabolic Encephalopathy. Per EMS notes she was altered. Not sure if this is due to alcohol intoxication as her alcohol levels on admission 0.063. Per d/w the ER Attending she was agitated on arrival but more calm after receving ativan. CT of the head was negative for acute bleeds. 3. Alcohol Dependence. CIWA protocol in place with Ativan continue with folic acid and thiamine. 4. Hypokalemia on admission at 2.7 with a normal magnesium. She was replenished 40 mEq by mouth and 10 mEq IV in the ER. Will recheck values in replenish 5. History of Massive PE in 2017. Reason for chronic Eliquis. Will continue as prescribed. 6. Hypertension. Continue with home chlorthalidone and spironolactone 7. Depression. Well continue with home sterilely 8. Obesity. BMI 40.3 complicates care 9. History of moderately differentiated adenocarcinoma of the right lung s/p right upper lobe lobectomy in 2014 10. History of noncompliance 11. GERD. Continue with home Prilosec 12.Tobacco Abuse. Smoking cessation education when more alert. DVT PROPHYLAXIS: not needed bc she is on Eliquis DISPOSITION: At least 2 midnights of inpatient Vital Signs Vital Signs Date Time Temp Pulse Resp B/P (MAP) Pulse Ox O2 Delivery O2 Flow Rate FiO2 11/05/19 06:00 97.1 102 18 105/52 (69) 96 Room Air Laboratory Data Labs 24H Laboratory Tests 2 11/05/19 00:01: Immature Granulocyte % (Auto) 1.0, Neutrophils (%) (Auto) 67.1H, Lymphocytes (%) (Auto) 22.8L, Monocytes (%) (Auto) 7.6H, Eosinophils (%) (Auto) 1.0, Basophils (%) (Auto) 0.5, Neutrophils # (Auto) 4.2, Lymphocytes # (Auto) 1.4L, Monocytes # (Auto) 0.5, Eosinophils # (Auto) 0.1, Basophils # (Auto) 0.0, Nucleated Red Bloo d Cells % (auto) 0.0, Anion Gap 11, Glomerular Filtration Rate > 60.0, Osmolality 294, Calcium Level 10.0, Magnesium Level 1.8, Total Bilirubin 1.4H, Direct Bilirubin 0.8H, Aspartate Amino Transf (AST/SGOT) 201H, Alanine Aminotransferase (ALT/SGPT) 136H, Alkaline Phosphatase 86, Total Creatine Kinase 871H, Creatine Kinase MB 17.5H, Creatine Kinase MB Relative Index 2.01, Troponin I < 0.02, Total Protein 6.6, Albumin 2.6L, Albumin/Globulin Ratio 0.65L, Thyroid Stimulating Hormone (TSH) 2.570, Salicylates Level 6.3, Acetaminophen Level < 2.0L, Ethyl Alcohol Level 0.063H 11/05/19 00:40: Bedside Glucose (Misc Panel) 111 11/05/19 00:45: Lactic Acid Level 3.3*H 11/05/19 00:48: Ammonia 22 11/05/19 02:19: Urine Color NEGRITA, Urine Appearance CLOUDYH, Urine pH 6.0, Urine Specific [place] 1.010, Urine Protein NEGATIVE, Urine Glucose (UA) NEGATIVE, Urine Ketones TRACEH, Urine Blood 2+H, Urine Nitrite NEGATIVE, Urine Bilirubin NEGATIVE, Urine Urobilinogen 4.0H, Urine Leukocyte Esterase 3+H, Urine WBC (Auto) 15H, Urine RBC (Auto) 6H, Urine Hyaline Casts (Auto) 5, Urine Bacteria (Auto) 3+H, Urine Squamous Epithelial Cells 8, Urine Mucus (Auto) SMALL, Urine Sperm (Auto) , Urine Opiates Screen NEGATIVE, Urine Methadone Screen NEGATIVE, Urine Barbiturates Screen NEGATIVE, Urine Phencyclidine Screen NEGATIVE, Urine Amphetamines Screen NEGATIVE, Urine Benzodiazepines Screen POSITIVEH, Urine Cocaine Metabolite Screen NEGATIVE, Urine Cannabinoids Screen NEGATIVE 11/05/19 06:18: Blood Gas Bicarbonate Standard 27.4H, Arterial Blood pH 7.476H, Arterial Blood Partial Pressure CO2 37.3, Arterial Blood Partial Pressure O2 71.7L, Arterial Blood Total CO2 28.1, Arterial Blood HCO3 26.9H, Arterial Blood Base Excess 3.4H, Arterial Blood Oxygen Saturation 94.6L CBC/BMP Laboratory Tests 11/05/19 00:01 Microbiology Microbiology 11/05/19 Urine Culture, Received Pending 11/05/19 Blood Culture, Received Pending 11/05/19 Blood Culture, Received Pending Home Medications Scheduled Apixaban (Eliquis) 2.5 Mg Tablet, 2.5 MG PO BID Chlorthalidone (Chlorthalidone) 25 Mg Tablet, 12.5 MG PO DAILY Gabapentin (Gabapentin) 300 Mg Capsule, 300 MG PO TID Omeprazole (Omeprazole) 20 Mg Capsule.dr, 20 MG PO DAILY Sertraline HCl (Sertraline HCl) 100 Mg Tablet, 100 MG PO QHS Spironolactone (Spironolactone) 25 Mg Tablet, 12.5 MG PO DAILY Scheduled PRN Baclofen (Baclofen) 20 Mg Tab, 20 MG PO TID PRN for MUSCLE SPASMS Hydroxyzine HCl (Hydroxyzine HCl) 50 Mg Tablet, 50 MG PO QHS PRN for SLEEP Allergies Coded Allergies: azithromycin (Verified Allergy, Unknown, 10/01/19) GME ATTESTATION GME ATTESTATION My faculty preceptor for this patient encounter was physically present during the encounter and was fully available. All aspects of the patient interview, examination, medical decision making process, and medical care plan development were reviewed and approved by the faculty preceptor. The faculty preceptor is aware and concurs with the plan as stated in the body of this note and will attest to such by his/her cosignature. ATTENDING NOTE I examined Ms. Peterson at 5:05 AM. I reviewed & edited Dr. Vickers's note and agree with the findings as documented RUDY KYLE DO Nov 05, 2019 06:30 ELI TA MD Nov 05, 2019 06:56
[2019-11-05 06:47] LABS: ERYTHROCYTE SEDIMENTATION RATE 37 mm/hr (0-30)
[2019-11-05 07:47] LABS: BLOOD UREA NITROGEN 9 MG/DL (7-18); C REACTIVE PROTEIN QUANTITATIV 3.98 MG/DL (0.00-0.30); CALCIUM LEVEL 9.4 MG/DL (8.8-10.2); CARBON DIOXIDE LEVEL 29 MEQ/L (21-32); CHLORIDE LEVEL 100 MEQ/L (98-107); CREATININE FOR GFR 0.74 MG/DL (0.55-1.30); GLOMERULAR FILTRATION RATE > 60.0 (>45); GLUCOSE, FASTING 74 MG/DL (70-100); MAGNESIUM LEVEL 1.6 MG/DL (1.8-2.4); POTASSIUM SERUM 3.5 MEQ/L (3.5-5.1); SODIUM LEVEL 135 MEQ/L (136-145)
--- NOTE | 2019-11-05 08:06 | REP ---
Portable chest x-ray: Single view. History: Altered mental status. Comparison chest x-ray February 03, 2019. Findings: Right hemidiaphragm remains somewhat elevated and there is slight blunting with pleuroparenchymal fibrosis at the right base. This is unchanged. There are old healed right-sided rib fractures in this region. Left lung is clear. No infiltrate is seen. Heart is not enlarged. Impression: Chronic pleuroparenchymal fibrosis right base. Otherwise no acute disease. Electronically Signed by Ty Tafoya MD 11/05/2019 07:58 A
[2019-11-05] MEDS ORDERED: GABAPENTIN 300 MG CAP PO SCH (09:00)
[2019-11-05] MEDS ORDERED: CHLORTHALIDONE 12.5MG PER 1/2 TABLET PO SCH (09:00)
[2019-11-05] MEDS ORDERED: SPIRONOLACTONE 12.5MG PER 1/2 TABLET PO SCH (09:00)
[2019-11-05] MEDS: MULTIVITAMINS/MINERALS THERAP 1 TAB PO SCH (09:00)
[2019-11-05] MEDS: cefTRIAXone SOD 1 GM in D5W MINI-BAG PLUS 50 ML IV SCH (09:07)
[2019-11-05] MEDS: APIXABAN 2.5 MG TAB (ELIQUIS) PO SCH ×2 (09:08→20:59)
[2019-11-05] MEDS: OMEPRAZOLE 20 MG CAP PO SCH (09:22)
[2019-11-05] MEDS: FOLIC ACID 1 MG TAB PO SCH (09:22)
[2019-11-05] MEDS: D5W/0.45% SODIUM CHLORIDE 1,000 ML IV SCH ×2 (12:25→21:15)
[2019-11-05] MEDS ORDERED: NYSTATIN 100,000 UNITS/GM TOPICAL PWD 15 GM TOP SCH (13:30)
[2019-11-05] MEDS ORDERED: BACLOFEN 10 MG TAB PO PRN (16:45)
[2019-11-05] MEDS ORDERED: PROHANCE 279.3MG/ML 5ML VIAL (A9576) As Ordered ONE (20:21)
[2019-11-05] MEDS ORDERED: PROHANCE 279.3MG/ML 15ML VIAL (A9576) As Ordered ONE (20:21)
[2019-11-05] MEDS ORDERED: SERTRALINE 100 MG TAB PO SCH (21:00)
--- NOTE | 2019-11-05 21:19 | REPVR ---
PROCEDURE INFORMATION: Exam: MR Head Without and With Contrast Exam date and time: 11/05/2019 4:37 PM Age: 64 years old Clinical history: Weakness, extremity; Left; Patient HX: HX ms, now with lt sided weakness, altered; Additional info: Ms weakness TECHNIQUE: Imaging protocol: MR of the head without and with intravenous contrast. 3D rendering: MIP reconstructed images were created and reviewed. Contrast material: PROHANCE; Contrast volume: 19 ml; Contrast route: IV; COMPARISON: CT Head without contrast 11/05/2019 12:29 AM FINDINGS: Mild volume loss. Major vascular flow voids at the skull base are preserved. No extra-axial fluid collection. No midline shift or intracranial mass effect. There is mild white matter gliosis. No pathologic susceptibility or cerebral edema. No diffusion restriction. No pathologic intracranial enhancement. Minimal paranasal sinus disease. No significant mastoid effusion. IMPRESSION: No acute intracranial abnormality. Electronically signed by: Kishore Gandara On 11/05/2019 21:19:18 PM
--- NOTE | 2019-11-05 22:03 | ECGEPIP ---
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
[2019-11-06] VITALS (8 sets, daily range): BP systolic 102–139; BP diastolic 55–66
[2019-11-06 05:23] LABS: MEAN CORPUSCULAR HEMOGLOBIN 35.9 pg (27.0-33.0); MEAN CORPUSCULAR HGB CONC 34.9 g/dl (32.0-36.5); MEAN CORPUSCULAR VOLUME 102.9 fl (80.0-96.0); PLATELET COUNT, AUTOMATED 119 10^3/uL (150-450); WHITE BLOOD COUNT 8.7 10^3/uL (4.0-10.0)
[2019-11-06 05:24] LABS: HEMOGLOBIN 12.2 g/dl (12.0-15.5)
[2019-11-06 05:48] LABS: BLOOD UREA NITROGEN 14 MG/DL (7-18); CALCIUM LEVEL 9.2 MG/DL (8.8-10.2); CARBON DIOXIDE LEVEL 28 MEQ/L (21-32); CHLORIDE LEVEL 102 MEQ/L (98-107); CREATININE FOR GFR 0.82 MG/DL (0.55-1.30); GLOMERULAR FILTRATION RATE > 60.0 (>45); GLUCOSE, FASTING 124 MG/DL (70-100); POTASSIUM SERUM 3.4 MEQ/L (3.5-5.1); SODIUM LEVEL 136 MEQ/L (136-145)
[2019-11-06] MEDS: HumaLOG INSULIN (NovoLOG) PER UNIT SC SCH (06:00)
--- NOTE | 2019-11-06 07:13 | CR ---
DATE OF CONSULTATION: 11/05/2019 REFERRING PHYSICIAN: Dr. Sophie Daly REASON FOR CONSULTATION: Altered mental status, hypothermia. HISTORY OF PRESENT ILLNESS: Jared Peterson is a 64-year-old woman with history of alcoholism in the past who was brought to [facility] by EMS for altered mental status. The patient was lethargic throughout this exam. History was obtained from the electronic medical records. The patient was last seen by her caregiver on Saturday November 02, 2019. The patient herself called EMS. The patient fell, but had no injuries. They found her blood sugar 128 and she was hypothermic with temperature 90.3 upon arrival. The patient was sent to the intensive care unit and was placed under heat lamp and bear hugger. CT scan of head was unremarkable and blood alcohol level was 0.063. The patient received 0.5 mg of Ativan, potassium chloride and Zosyn. Her urinalysis (UA) showed 3+ bacteria, 15 WBCs, 3+ leukocyte esterase. Her magnesium level was 1.6. Sodium was 135. BMP, CBC, toxicology screen and TSH were unremarkable otherwise. The patient is drowsy and confused. She is not able to answer most of the questions. She has history of chronic neck and back pain for which she has been going to the pain clinic. She has history of alcoholism in the past for which she went through rehabilitation. She has history of multiple sclerosis and saw Dr. Felder, but has not followed up since 2018. She denies any headaches. PAST MEDICAL HISTORY: Chronic hepatitis C diagnosed in 1998, hypertension, alcoholism and the patient went to rehab in 2012, 2013 and 2014, depression, intravenous drug abuse in the past, alcoholics neuropathy, multiple sclerosis, vitamin B12 deficiency, carpal tunnel syndrome, history of adenocarcinoma of right side of lung, arthritis, pulmonary embolism, prolapsed uterus, uterine rupture, right lower lobe of lung lobectomy, and bronchoscopy. SOCIAL HISTORY: She used illicit drugs in the past. She used alcohol heavily in the past. She is currently drinking alcohol as well. She states that she drinks four beers a day. I am not sure about the amount of alcohol intake currently. She smokes tobacco. FAMILY HISTORY: Unable to obtain. REVIEW OF SYSTEMS: Unable to reliably obtain. HOME MEDICATIONS: Eliquis 2.5 mg by mouth twice a day, chlorthalidone 12.5 mg by mouth daily, gabapentin 300 mg by mouth three times a day, Prilosec 20 mg by mouth daily, Zoloft 100 mg by mouth daily, spironolactone 12.5 mg by mouth daily. ALLERGIES: - AZITHROMYCIN PHYSICAL EXAMINATION: Temperature was 90.3 and it has improved to 98.9, pulse 99, respiratory 16, blood pressure 109/55, and 94% saturation on room air. Heart: Regular rate and rhythm. Lungs: Clear to auscultation. Abdomen: Soft, nontender, nondistended. No pedal edema. No musculoskeletal abnormalities. No rash. No signs of meningeal irritation. The patient is drowsy, but arousable. She appears confused. She is oriented to place and month. She is unable to tell me day, year or name of president. She appears to have difficulty understanding commands. Extraocular muscles are intact. No facial weakness. Tongue and uvula are midline. She is able to move all four extremities. Sensation is intact. Plantars are downgoing. Cerebellar, sensory and gait testing could not be performed. DIAGNOSTIC AND IMAGING STUDIES: CT scan of head was reportedly unremarkable. MRI scan of brain, cervical and thoracic spine in 2018 at our office revealed stable multiple white matter plaques in the brain and two in thoracic spinal cord without enhancement or new lesions. Her MRI scans looked stable in 2018. ASSESSMENT: 1. Episode of altered mental status and hypothermia, possibly due to alcoholism and urinary tract infection. 2. History of multiple sclerosis which usually does not result in altered mental status and hypothermia. 3. History of alcoholism and illicit drug use in the past with recurrence of alcoholism. PLAN 1. MRI of brain with and without contrast. 2. Physical and occupational therapy. 3. Treatment of her urinary tract infection may improve her symptoms. Infections can lead to pseudo exacerbation of multiple sclerosis which can only account for any gait difficulty if she may have when we reassess her tomorrow. 4. Follow with Dr. Felder within a month after hospital discharge.
[2019-11-06] MEDS ORDERED: KCL 40MEQ IN D5/0.45NS 1000ML 1,000 ML IV SCH (07:15)
[2019-11-06] MEDS: cefTRIAXone SOD 1 GM in D5W MINI-BAG PLUS 50 ML IV SCH (07:37)
[2019-11-06] MEDS: FOLIC ACID 1 MG TAB PO SCH (08:07)
[2019-11-06] MEDS: MULTIVITAMINS/MINERALS THERAP 1 TAB PO SCH (08:08)
[2019-11-06] MEDS: THIAMINE 100 MG TAB PO SCH ×2 (08:08→20:56)
[2019-11-06] MEDS: OMEPRAZOLE 20 MG CAP PO SCH (08:08)
[2019-11-06] MEDS ORDERED: ENOXAPARIN 100MG/1ML SYRINGE (J1650) SC SCH (09:00)
[2019-11-06 16:21] LABS: MAGNESIUM LEVEL 1.7 MG/DL (1.8-2.4); POTASSIUM SERUM 3.5 MEQ/L (3.5-5.1)
[2019-11-06] MEDS ORDERED: POTASSIUM CHLORIDE 10 MEQ SR TABLET PO ONE (17:15)
[2019-11-06] MEDS ORDERED: MAG SULF 1GM/100ML (MAG RUN) 1 GM in IV 1 EA IV ONE (17:15)
[2019-11-07] VITALS (8 sets, daily range): BP systolic 111–137; BP diastolic 60–67
[2019-11-07 04:57] LABS: HEMATOCRIT 35.8 % (36.0-47.0); HEMOGLOBIN 11.7 g/dl (12.0-15.5); MEAN CORPUSCULAR HEMOGLOBIN 35.2 pg (27.0-33.0); MEAN CORPUSCULAR HGB CONC 32.7 g/dl (32.0-36.5); MEAN CORPUSCULAR VOLUME 107.8 fl (80.0-96.0); PLATELET COUNT, AUTOMATED 107 10^3/uL (150-450); RED BLOOD COUNT 3.32 10^6/uL (4.00-5.40); WHITE BLOOD COUNT 6.8 10^3/uL (4.0-10.0)
[2019-11-07 05:20] LABS: BLOOD UREA NITROGEN 10 MG/DL (7-18); CALCIUM LEVEL 9.5 MG/DL (8.8-10.2); CARBON DIOXIDE LEVEL 27 MEQ/L (21-32); CHLORIDE LEVEL 104 MEQ/L (98-107); CREATININE FOR GFR 0.71 MG/DL (0.55-1.30); GLOMERULAR FILTRATION RATE > 60.0 (>45); GLUCOSE, FASTING 95 MG/DL (70-100); POTASSIUM SERUM 3.7 MEQ/L (3.5-5.1); SODIUM LEVEL 140 MEQ/L (136-145)
[2019-11-07] MEDS: MULTIVITAMINS/MINERALS THERAP 1 TAB PO SCH (08:15)
[2019-11-07] MEDS: THIAMINE 100 MG TAB PO SCH ×2 (08:15→20:17)
[2019-11-07] MEDS: FOLIC ACID 1 MG TAB PO SCH (08:15)
[2019-11-07] MEDS: LevoFLOXacin 750 MG TABLET PO SCH (08:16)
[2019-11-07] MEDS: OMEPRAZOLE 20 MG CAP PO SCH (08:16)
[2019-11-07] MEDS: APIXABAN 2.5 MG TAB (ELIQUIS) PO SCH (09:00)
--- NOTE | 2019-11-07 09:00 | IPN ---
DATE OF SERVICE: 11/06/2019 The patient is much more awake and alert this morning. She is disoriented to time and says that it is 1918. She knows that she is at [facility] and able to say her name and date of but still waxing and waning. She continues to have right-sided decreased strength in upper extremity. Left upper and lower extremity remains stronger. Gait has not been tested but the patient still complains of generalized weakness. Afebrile overnight. No chest pain, pressure, tightness, shortness of breath. The patient has nausea and vomiting. She passed a swallow evaluation and resumed now on an oral diet. Temperature 98.3, pulse 88, respiratory rate 18, blood pressure 139/66, 96% on room air. Generally, the patient is awake, alert, oriented to person and place but not to date, as she says it is October but it is 1918. Speaking in full sentences. No cervical lymphadenopathy, thyromegaly, or jugular venous distention. Lungs are clear to auscultation. No wheezing, rales, or rhonchi. Heart: S1, S2, sinus rhythm. Abdomen: Is soft, nontender, nondistended. Positive bowel sounds times four quadrants. Extremities: No clubbing, cyanosis, or pitting edema. LABORATORY DATA: Have been reviewed. Urine culture is pending. MRI of the brain: No acute intracranial abnormality. ASSESSMENT AND PLAN: This is a 64-year-old female with history of multiple sclerosis last seen by Dr. Felder about a year ago. Was found down at home by her caregiver, and blood sugar was 123. She was hypothermic. Underwent heating lamp and Miguelina Hugger. Found to have abnormal urinalysis with acute encephalopathy. The patient is a known alcoholic but lives alone. IMPRESSION: 1. Urinary tract infection. Currently, on intravenous ceftriaxone. 2. Sepsis secondary to urinary tract infection that was present on admission. Currently, on IV ceftriaxone. The patient was resuscitated yesterday with a Miguelina Hugger with improvement in her temperature. 3. History of multiple sclerosis with no abnormality on MRI. Neurologist has been consulted, physical therapy and occupational therapy (OT). Continue with supportive care with urinary tract infection (UTI) and outpatient followup within a month after hospital discharge. 4. Hypokalemia. Supplemented. 5. Hypomagnesemia. Supplemented. 6. Lactic acidosis secondary to sepsis has resolved with antibiotic and resuscitation. 7. Aspiration due to acute encephalopathy due to urinary tract infection and sepsis. The patient passed a swallow evaluation and now resumed on a modified diet. 8. Generalized weakness secondary to urinary tract infection. No objective evidence of multiple sclerosis exacerbation. Acute rehabilitation unit (ARU) evaluation. The patient may be transferred to medical-surgical floor. 9. Depression. Continue on sertraline. 10. History of alcohol abuse. Clinical [place] Withdrawal Assessment (CIWA) protocol. 11. History of diabetes. On every before meals and at bedtime fingersticks. 12. History of pulmonary embolism (PE) in 2017. On chronic anticoagulation. CT of the head showed no bleed. DISPOSITION: Will await ARU acceptance. The patient lives alone. Patient and family services (PFS) has been consulted, as the family is requesting placement. ROBERT
--- NOTE | 2019-11-07 11:48 | IPN ---
DATE: 11/07/2019 Patient seen and examined at the bedside. Chart has been reviewed. Patient's MRI was normal. She had passed swallow evaluation, currently on a mechanical soft diet. Eating well. Complains of lower extremity pain and refusing her Apixaban today saying that she cannot afford the medication. Patient has a history of pulmonary embolism in 2017. Patient is two person assistance with ambulation. No complaints of shortness of breath this morning. No dysuria, urgency or frequency. Transition to Levaquin from IV Ceftriaxone for urinary tract infection (UTI) with Escherichia (E.) coli, resistant to ampicillin and ampicillin/sulbactam. Temperature 97.7, pulse 83, respiratory rate 19, blood pressure 137/62, 99% on room air. GENERAL: Awake, alert, oriented times three. Edentulous. No jugular venous distention (JVD), thyromegaly or cervical lymphadenopathy. Speaks in full sentences. LUNGS: Clear to auscultation. No wheezing, rales or rhonchi. HEART: S1, S2, sinus rhythm. ABDOMEN: Obese, soft, nontender, nondistended. Positive bowel sounds. EXTREMITIES: 2+ pitting edema to the sacrum. LABORATORY DATA: White count 6.8, hemoglobin 11, hematocrit 35, platelet count 107. Previous platelet count was 103 on admission. Sodium 140, potassium 3.7, chloride 104, bicarbonate 27, BUN 10, creatinine 0.71, glucose of 95. Microbiology: E. coli resistant to ampicillin, ampicillin/sulbactam and Bactrim. ASSESSMENT AND PLAN: This is a 64-year-old female with history of multiple sclerosis, lives alone, chronic alcoholic, fell down at home and was admitted for hypotension, UTI, acute encephalopathy with baseline chronic kidney disease (CKD) III. ACUTE ISSUES: Are as follows: 1. Acute encephalopathy. Resolved secondary to UTI and sepsis. Patient had been on IV ceftriaxone, currently transitioned and de-escalated to oral Levaquin. 2. Chronic kidney disease, stage III at baseline creatinine. 3. Chronic atrial fibrillation. Refusing Eliquis. Says she cannot afford this. Currently on Lovenox for history of pulmonary embolism (PE) as well. Patient and Family Services (PFS) has been consulted. She is currently denying any acute ischemic symptoms. 4. History of multiple sclerosis without exacerbation. Neurologist has been consulted. Recommended physical therapy and treatment for UTI. 5. Hypokalemia, supplemented, hypomagnesemia, supplemented. lactic acidosis, resolved with antibiotic and IV fluid resuscitation. 6. Acute encephalopathy due to UTI. Passed swallow evaluation. Currently on mechanical soft diet. 7. Generalized weakness due to UTI. Currently being treated ARU has been ordered for screening. 8. Depression, on sertraline. 9. History of pulmonary embolism (PE) in 2017. Refused Eliquis today. PFS consulted and placed on Lovenox 1 mg per kg subcutaneous every 12. Check a venous Doppler of the lower extremities. 10. History of diabetes. Fingersticks before food, at bedtime. Sliding scale with coverage. DISPOSITION: Medically stable for medical surgical floor. MTDD
[2019-11-07] MEDS: ENOXAPARIN 100MG/1ML SYRINGE (J1650) SC SCH ×2 (12:25→20:17)
--- NOTE | 2019-11-07 14:21 | REP ---
Bilateral lower extremity duplex venous ultrasound: History: Rule out DVT. Left leg swelling. Findings: In the right lower extremity, the deep veins are anechoic and fully compressible on two-dimensional scanning from the groin to the popliteal fossa. Color flow imaging is homogeneous. Spectral Doppler interrogation demonstrates intact respiratory variation and normal manual augmentation of flow. There is no evidence of DVT in the right lower extremity. In the left leg, there is a echogenic linear structure within the popliteal vein segment indicating nonocclusive DVT in the left lower extremity. Color Doppler flow is intact. Pulsed Doppler interrogation demonstrates intact respiratory variation in flow normal manual augmentation of flow. There is no other evidence of DVT. Impression: Minimal linear nonocclusive deep vein thrombosis left popliteal vein. Otherwise negative bilateral lower extremity duplex venous ultrasound. Electronically Signed by Ty Tafoya MD 11/07/2019 02:12 P
[2019-11-08] MEDS: LevoFLOXacin 750 MG TABLET PO SCH (05:45)
[2019-11-08 06:00] VITALS: BP 116/63
[2019-11-08 06:41] LABS: HEMATOCRIT 34.9 % (36.0-47.0); HEMOGLOBIN 11.4 g/dl (12.0-15.5); MEAN CORPUSCULAR HGB CONC 32.7 g/dl (32.0-36.5); MEAN CORPUSCULAR VOLUME 107.1 fl (80.0-96.0); PLATELET COUNT, AUTOMATED 114 10^3/uL (150-450); RED BLOOD COUNT 3.26 10^6/uL (4.00-5.40); WHITE BLOOD COUNT 6.9 10^3/uL (4.0-10.0)
[2019-11-08 06:59] LABS: BLOOD UREA NITROGEN 8 MG/DL (7-18); CALCIUM LEVEL 9.8 MG/DL (8.8-10.2); CARBON DIOXIDE LEVEL 27 MEQ/L (21-32); CHLORIDE LEVEL 105 MEQ/L (98-107); CREATININE FOR GFR 0.73 MG/DL (0.55-1.30); GLOMERULAR FILTRATION RATE > 60.0 (>45); GLUCOSE, FASTING 96 MG/DL (70-100); POTASSIUM SERUM 3.4 MEQ/L (3.5-5.1); SODIUM LEVEL 139 MEQ/L (136-145)
[2019-11-08] MEDS: MULTIVITAMINS/MINERALS THERAP 1 TAB PO SCH (07:43)
[2019-11-08] MEDS: FOLIC ACID 1 MG TAB PO SCH (07:43)
[2019-11-08] MEDS: OMEPRAZOLE 20 MG CAP PO SCH (07:44)
[2019-11-08] MEDS: ENOXAPARIN 100MG/1ML SYRINGE (J1650) SC SCH ×2 (07:46→20:31)
[2019-11-08] MEDS: POTASSIUM CHLORIDE 10 MEQ SR TABLET PO SCH (07:46)
--- NOTE | 2019-11-08 08:24 | EEG ---
DATE OF STUDY: 11/06/2019 DIAGNOSIS: Altered mental status. EEG #: [id number] HISTORY: The patient is a 64-year-old woman with history of multiple sclerosis who was admitted at [facility] due to altered mental status and hypothermia with temperature of 90.3 at the time of admission. This EEG was done to rule out epileptic potential. She is currently on Eliquis, Prilosec, spironolactone, folic acid, thiamine, etc. TECHNICAL DESCRIPTION: This digital EEG was recorded by 21 scalp, ear and 2 EKG electrodes and was reviewed in bipolar and referential pressures following reformatting 10-20 international electrode placement system. INTERPRETATION: The patient was noted to be in awake and drowsy states during this EEG. Resting and awake background rhythm consisted of 6 Hz theta activity measuring 15-40 microvolts in amplitude which was symmetric bilaterally. The patient became drowsy during this EEG. No sleep was achieved. Hyperventilation could not be performed. Photic stimulation remained unremarkable. EKG revealed normal sinus rhythm. No focal, lateralizing or epileptiform abnormalities were seen. No relevant or clinical activity was noted. CONCLUSION: This EEG in awake and drowsy states is abnormal due to presence of mild generalized slowing and disorganization of background consistent with mild diffuse nonspecific cerebral dysfunction such as seen in encephalopathy due to multiple potential causes. No epileptiform abnormalities were seen. Clinical correlation is recommended.
[2019-11-08 14:00] VITALS: BP 130/66
[2019-11-08 22:00] VITALS: BP 111/53
[2019-11-09 02:00] VITALS: BP 125/58
[2019-11-09 04:00] VITALS: BP 121/57
[2019-11-09] MEDS: LevoFLOXacin 750 MG TABLET PO SCH (06:03)
[2019-11-09 06:22] LABS: HEMOGLOBIN 11.5 g/dl (12.0-15.5); MEAN CORPUSCULAR HEMOGLOBIN 35.4 pg (27.0-33.0); MEAN CORPUSCULAR HGB CONC 32.9 g/dl (32.0-36.5); MEAN CORPUSCULAR VOLUME 107.7 fl (80.0-96.0); PLATELET COUNT, AUTOMATED 112 10^3/uL (150-450); RED BLOOD COUNT 3.25 10^6/uL (4.00-5.40); WHITE BLOOD COUNT 6.3 10^3/uL (4.0-10.0)
[2019-11-09 06:49] LABS: BLOOD UREA NITROGEN 8 MG/DL (7-18); CALCIUM LEVEL 10.1 MG/DL (8.8-10.2); CARBON DIOXIDE LEVEL 28 MEQ/L (21-32); CHLORIDE LEVEL 107 MEQ/L (98-107); CREATININE FOR GFR 0.71 MG/DL (0.55-1.30); GLOMERULAR FILTRATION RATE > 60.0 (>45); GLUCOSE, FASTING 95 MG/DL (70-100); POTASSIUM SERUM 3.5 MEQ/L (3.5-5.1); SODIUM LEVEL 141 MEQ/L (136-145)
[2019-11-09 10:00] VITALS: BP 126/73
[2019-11-09] MEDS: MULTIVITAMINS/MINERALS THERAP 1 TAB PO SCH (10:12)
[2019-11-09] MEDS: POTASSIUM CHLORIDE 10 MEQ SR TABLET PO SCH (10:12)
[2019-11-09] MEDS: FOLIC ACID 1 MG TAB PO SCH (10:12)
[2019-11-09] MEDS: ENOXAPARIN 100MG/1ML SYRINGE (J1650) SC SCH ×2 (10:12→20:06)
[2019-11-09] MEDS: OMEPRAZOLE 20 MG CAP PO SCH (10:12)
[2019-11-09 14:00] VITALS: BP 127/73
[2019-11-09 18:00] VITALS: BP 132/76
--- NOTE | 2019-11-09 18:18 | IPN ---
DATE: 11/08/2019 Patient is seen and examined and anxious to go home, barely able to get up out of bed. EEG done on 11/07/2019 shows abnormal due to mild slowing consistent with nonspecific cerebellar dysfunction as seen in encephalopathy but no epileptiform abnormalities. Patient refused her Eliquis yesterday due to inability to pay. She is currently on Lovenox. Repeat ultrasound of bilateral lower extremities shows partial thrombus, which is nonocclusive around the left popliteal vein, otherwise negative bilateral lower extremity ultrasound. Patient denies any dysuria, urgency, frequency, fever, chills, or flank pain. Vital Signs: Temperature 96.9, pulse 80, respiratory rate 16, blood pressure 116/63, 100% on room air. Generally, awake, alert, oriented to self, slow to speak, edentulous. Lungs are clear to auscultation. No wheezing or rales. Heart: S1, S2, sinus rhythm. Abdomen is soft, nontender, nondistended. Positive bowel sounds. Extremities: 2+ pitting edema to the sacrum. LABORATORY DATA: White count 6.9, hemoglobin 11, hematocrit 34, platelet count 114, previous platelet count on admission was 103. Sodium 139, potassium 3.4, chloride 105, bicarbonate 27, BUN 8, creatinine 0.73, glucose of 96. Escherichia (E) coli urine. Blood cultures negative. ASSESSMENT AND PLAN: This is a 64-year-old female with a history of multiple sclerosis, follows with Dr. Felder, schizophrenia, lives alone, fell down at home, was admitted for hypertension, urinary tract infection (UTI) and acute encephalopathy with chronic kidney disease. IMPRESSION: Acute encephalopathy secondary to UTI is resolved. She has finished IV ceftriaxone, currently on Levaquin, renal dosing. Chronic kidney disease, stage III, at baseline creatinine. Avoiding nephrotoxins, renally dosing all medications. Strict intake and output. Chronic atrial fibrillation, refused Eliquis as she could not afford this. Patient and family services (PFS) has been consulted for financial assistance. She is currently on Lovenox due to partial thrombus that is nonocclusive. Deep vein thrombosis (DVT) with a history of pulmonary embolism (PE) in 2017, still with partial thrombus, refused Eliquis, currently on subcu Lovenox. PFS consulted. History of multiple sclerosis without acute exacerbation. Repeat EEG was negative for epileptiform activity, but positive for slowing down and nonspecific encephalopathy. Patient was found to have a urinary tract infection (UTI), which has been treated with 3 days of intravenous antibiotics and currently to finish a 7-day course with oral Levaquin, which is renally dosed. Per Dr. Sams, no other treatment as multiple sclerosis (MS) is not active, without any exacerbation. MRI of the brain is essentially normal. Electrolyte abnormalities with hypokalemia supplemented. Recheck magnesium and potassium. Acute encephalopathy due to urinary tract infection (UTI). Passed a swallow evaluation. With concerns for aspiration, patient passed a swallow evaluation and is currently on mechanical soft diet. Generalized weakness. Acute rehabilitation unit (ARU) has been ordered. Most likely secondary to acute infection. Depression. On sertraline. Diabetes. On consistent carbohydrate diet. Sliding scale with coverage. DISPOSITION: Await ARU decision for acceptance. Patient lives alone. Family is concerned and requesting placement. [facility] N[facility] FACILITYYashira
[2019-11-09 22:00] VITALS: BP 132/72
[2019-11-10 02:00] VITALS: BP 127/73
[2019-11-10] MEDS: LevoFLOXacin 750 MG TABLET PO SCH (05:39)
[2019-11-10 06:00] VITALS: BP 135/72
[2019-11-10 06:09] LABS: HEMATOCRIT 36.4 % (36.0-47.0); HEMOGLOBIN 11.5 g/dl (12.0-15.5); MEAN CORPUSCULAR HEMOGLOBIN 34.6 pg (27.0-33.0); MEAN CORPUSCULAR HGB CONC 31.6 g/dl (32.0-36.5); MEAN CORPUSCULAR VOLUME 109.6 fl (80.0-96.0); PLATELET COUNT, AUTOMATED 113 10^3/uL (150-450); RED BLOOD COUNT 3.32 10^6/uL (4.00-5.40); WHITE BLOOD COUNT 5.7 10^3/uL (4.0-10.0)
[2019-11-10 06:40] LABS: BLOOD UREA NITROGEN 6 MG/DL (7-18); CALCIUM LEVEL 9.8 MG/DL (8.8-10.2); CARBON DIOXIDE LEVEL 28 MEQ/L (21-32); CHLORIDE LEVEL 106 MEQ/L (98-107); CREATININE FOR GFR 0.71 MG/DL (0.55-1.30); GLOMERULAR FILTRATION RATE > 60.0 (>45); GLUCOSE, FASTING 96 MG/DL (70-100); POTASSIUM SERUM 3.5 MEQ/L (3.5-5.1); SODIUM LEVEL 140 MEQ/L (136-145)
[2019-11-10] MEDS: POTASSIUM CHLORIDE 10 MEQ SR TABLET PO SCH (09:05)
[2019-11-10] MEDS: MULTIVITAMINS/MINERALS THERAP 1 TAB PO SCH (09:05)
[2019-11-10] MEDS: OMEPRAZOLE 20 MG CAP PO SCH (09:05)
[2019-11-10] MEDS: FOLIC ACID 1 MG TAB PO SCH (09:05)
[2019-11-10] MEDS: ENOXAPARIN 100MG/1ML SYRINGE (J1650) SC SCH (09:06)
--- NOTE | 2019-11-10 09:15 | IPN ---
DATE OF SERVICE: 11/09/2019 The patient continues to require two person assistance in getting up. She is anxious to go home. Maybe 2 to 3 more sessions. No other issues per nursing overnight. Vitals: Temperature 98, pulse 76, respiratory rate 19, blood pressure 126/73 and 99% on room air. Generally, awake, alert and oriented times three, answering questions appropriately. Lungs are clear to auscultation. No wheezing, rales or rhonchi. Heart: S1 and S2, sinus rhythm. Abdomen: Obese, soft, nontender, nondistended. Extremities: Positive pitting edema. LABORATORY DATA: White count 6.3, hemoglobin 11, hematocrit 35, platelet count 112. Sodium 141, potassium 3.5, chloride 107, bicarbonate 28, BUN 8, creatinine 0.7, glucose 95. Urine culture with E. Coli, resistant to ampicillin, sulbactam and Bactrim. ASSESSMENT AND PLAN: This is a 64-year-old female with history of multiple sclerosis who follows with Dr. Felder who has been having recurrent falls and who had a fall at home with hypertension admitted due to acute encephalopathy and UTI. Active Issues: 1. Acute encephalopathy secondary to UTI, resolved. 2. UTI. Status post IV ceftriaxone. On oral Levaquin renally dosed. 3. Chronic kidney disease stage 3, currently at baseline creatinine. 4. History of multiple sclerosis with no exacerbation. Appreciate neurology input. MRI of the brain was negative. 5. Alcohol abuse. Currently on CIWA protocol. Monitor for withdrawal symptoms. 6. Chronic atrial fibrillation. The patient is refusing Eliquis saying that she cannot afford $500 a month. Currently on Lovenox with history of PE in the past as well. Currently on Lovenox injections every 12 hours. 7. History of MS without exacerbation. 8. Hypokalemia. Has been supplemented. 9. Lactic acidosis. Resolved with treatment for UTI and IV fluid hydration. 10. Depression. On Sertraline. 11. History of pulmonary embolism in 2017. Refused Eliquis. Patient and family service consulted to assess for financial help. 12. Chronic venous insufficiency. 13. History of diabetes. On sliding scale.
[2019-11-10 10:00] VITALS: BP 133/74
--- NOTE | 2019-11-10 12:34 | IPN ---
DATE OF SERVICE: 11/10/2019 Jared is seen in [address] [place] rounding for the hospitalists. Per nursing staff, she has not passed her home safety evaluation. She was admitted with encephalopathy secondary to urinary tract infection. She is on oral Levaquin renally dosed. Has stage III chronic kidney disease, history of MS, alcohol use, and history of pulmonary embolism (PE). She has not been able to afford Eliquis. Patient and family services (PFS) is working on this as part of the discharge plans. PHYSICAL EXAMINATION: Afebrile. Vital signs stable. Lungs clear. Heart: Regular rate and rhythm. Abdomen: Soft, nontender. No peripheral edema. LABORATORIES: Complete blood count (CBC) and basic metabolic profile (BMP) unremarkable. IMPRESSION: 1. Improved encephalopathy. 2. Urinary tract infection. 3. Atrial fibrillation. PLAN: PFS is sorting out the Eliquis issue. Physical therapy (PT) is working on home safety. Anticipate she will probably be discharged tomorrow.
[2019-11-10 14:00] VITALS: BP 135/83
--- NOTE | 2019-11-23 08:26 | DSES ---
DATE OF ADMISSION: 11/05/2019 DATE OF DISCHARGE: 11/10/2019 PRINCIPAL DIAGNOSIS: Sepsis with encephalopathy secondary to sepsis present on admission. SECONDARY DIAGNOSES: Urinary tract infection. Atrial fibrillation. History of alcoholism. History of multiple sclerosis (MS). History of noncompliance. DISPOSITION: The patient signed out against medical advice (AMA). HISTORY: Aun was admitted with sepsis. She had encephalopathy. Details in the history and physical from admission. HOSPITAL COURSE: Patient admitted to medical bed. I picked up her case and only saw her on 11/10. At that point she was improved on oral Levaquin. They were sorting out her financial situation to be able to afford Eliquis. Plan was for her to stay until 11/11, but the patient signed out against medical advice (AMA) on 11/10. Patient and family services (PFS) was involved to try to her out of this. On the day of discharge, white count was 5.7, hemoglobin 5, platelets 113, sodium 140, potassium 3.5, BUN 6, creatinine 0.7, glucose 96. Toxicology screen had a blood alcohol level of 0.63 on admission. Positive for benzodiazepines. Urine culture was positive for E. Coli. DISPOSITION: She signed out against medical advice. Her medicines on discharge were: - Eliquis 2.5 mg twice a day - baclofen 20 mg twice a day as needed - chlorthalidone 12.5 mg daily - gabapentin 300 mg three times a day - hydroxyzine 50 mg by mouth at bedtime - omeprazole 20 mg daily - sertraline 100 mg at bedtime - spironolactone 12.5 mg daily She was advised to followup with her primary care provider in a week. Completed six days of antibiotic therapy for her UTI. Mental status was back to baseline on discharge per family members. I should note she had an MRI of the brain during admission which showed no acute intracranial abnormality. Ultrasound of her left leg did nonocclusive deep vein thrombosis (DVT) left popliteal vein for which she was admitted she should continue her Eliquis therapy. Son reportedly demonstrated to PFS that she had Eliquis at home and presented a bottle with medications in it.
== END 2019-11-10 15:18 | disposition left against medical advice (07) | DRG 871 ==
LOC: M ED 23:17 → M ED INP 11-05 05:00 → M ICU 11-05 11:30 → M MSPAV 11-07 11:35
PROVIDERS: ADMIT Internal Medicine; ATTEND General Practice
DX: A41.9 Sepsis, unspecified organism (principal); G93.41 Metabolic encephalopathy; N39.0 Urinary tract infection, site not specified; E87.2 Acidosis; I48.20 Chronic atrial fibrillation, unspecified; I12.9 Hypertensive chronic kidney disease with stage 1 through stage 4 chronic kidney disease, or unspecified chronic kidney disease; B18.2 Chronic viral hepatitis C; F10.20 Alcohol dependence, uncomplicated; F32.9 Major depressive disorder, single episode, unspecified; F17.210 Nicotine dependence, cigarettes, uncomplicated; G62.1 Alcoholic polyneuropathy; G35 Multiple sclerosis; E53.8 Deficiency of other specified B group vitamins; M06.9 Rheumatoid arthritis, unspecified; T68.XXXA Hypothermia, initial encounter; G89.29 Other chronic pain; M54.2 Cervicalgia; M54.5 Low back pain; F19.21 Other psychoactive substance dependence, in remission; E87.6 Hypokalemia; E83.42 Hypomagnesemia; B96.20 Unspecified Escherichia coli [E. coli] as the cause of diseases classified elsewhere; N18.3 Chronic kidney disease, stage 3 (moderate); E11.22 Type 2 diabetes mellitus with diabetic chronic kidney disease; Z88.1 Allergy status to other antibiotic agents; Z86.711 Personal history of pulmonary embolism; Z85.118 Personal history of other malignant neoplasm of bronchus and lung; Z90.2 Acquired absence of lung [part of]; Z79.899 Other long term (current) drug therapy; Z91.19 Patient's noncompliance with other medical treatment and regimen

== ENCOUNTER → 2019-12-18 | Outpatient (CLI) | payer MEDICARE, MEDICAID ==
[~2019-12-18] MED LIST changes: +CHLO125TA PO; +GABA-843 PO; +HYDR50TA70 PO; +OMEP1CAP73 PO; +SPIR-10 PO
--- NOTE | 2019-12-18 18:39 | REP ---
CT study of the chest without contrast: History: Solitary pulmonary nodule. Comparison chest CT study April 27, 2019. November 03, [address] is also reviewed along with January 15, 2019. CT findings: The previously noted nodule in the posterior segment of the left upper lobe is again seen. This measures 12 mm in greatest diameter on coronal multiplanar re-formation image, 9 mm in greatest diameter on axial CT slice #28 of 101 in series 201. It has a somewhat spiculated morphology as before. The patient is status post right thoracotomy and what appears to have been right upper lobectomy. The lesion appears slightly larger than it did on April 27, 2019 similar to its appearance on November 03, 2018. No new pulmonary nodule is appreciated. There is some linear fibrosis in the right base and right hemidiaphragm is elevated. Fatty infiltration of the liver is seen. Cholelithiasis is noted. No adrenal abnormality is observed. No pleural or pericardial effusion is seen. There is no evidence of hilar or mediastinal lymphadenopathy. Impression: Previously noted left upper lobe nodule is again seen 12 mm in greatest diameter today. Post thoracotomy changes are noted on the right. Electronically Signed by Ty Tafoya MD 12/18/2019 06:41 P
== END ==
LOC: M RAD 12:17
PROVIDERS: ATTEND Thoracic Surgery (Cardiothoracic Vascular Surgery)
DX: R91.1 Solitary pulmonary nodule (principal)

== ENCOUNTER → 2020-05-23 | Outpatient (CLI) | payer MEDICARE, MEDICAID ==
[~2020-05-23] MED LIST changes: +ISOVUE-370 76% 100ML VIAL As Ordered ONE
--- NOTE | 2020-05-23 10:33 | REP ---
Clinical: Solitary pulmonary nodule. Followup. Comparison: 12/18/2019, 04/27/2019, 11/03/2018. Technique: Axial contrast enhanced images from the thoracic inlet to the upper abdomen with coronal and sagittal re-formations using 75 ml Isovue 370 intravenous contrast material. Findings: 14 mm pulmonary nodule in the posterior left upper lobe (image 27) appears to be increased and more solid as compared to 11/14/2019 and 12/18/2019. No new consolidation, new nodule or mass lesion otherwise appreciated. Small focal area of linear scarring along the periphery of the right minor fissure remain stable. No effusion. No pneumothorax. No significant adenopathy identified. The tracheobronchial tree is patent. Mediastinum demonstrates relatively normal / stable thoracic aorta, pulmonary vasculature and heart/pericardium. Musculoskeletal structures are intact and without acute osseous abnormality. Impression: Pulmonary lesion in the left upper lobe now measures approximately 14 mm and appears to be increased in size from prior examination. Electronically Signed by Tutu Winter MD 05/23/2020 10:24 A
== END ==
LOC: M RAD 09:16
PROVIDERS: ATTEND Thoracic Surgery (Cardiothoracic Vascular Surgery)
DX: R91.1 Solitary pulmonary nodule (principal)
CPT/HCPCS: 71260; Q9967

== ENCOUNTER → 2020-06-13 | Outpatient (CLI) | payer MEDICARE, MEDICAID ==
[~2020-06-13] MED LIST changes: +CYAN100050 PO; +D31000TA2 PO; +FISH1000 PO; -ISOVUE-370 76% 100ML VIAL As Ordered ONE; +NYST1POW9 TOP
--- NOTE | 2020-06-13 14:04 | PFTRPT ---
Height: 62.75 Inches Weight: 254.00 Lbs BSA: 2.13 Diagnosis: R91.1 DATE OF PROCEDURE: 06/13/2020 ORDERED BY: Dr. Ely Spirometry: Pre and post bronchodilator study of excellent technical quality. Forced vital capacity reduced. FEV1 in proportion. Obstructive index is, therefore, normal. Flow Volume Loop: Expiratory limb of the flow volume loop does suggest some nonspecific limitation. No significant bronchodilator response identified. Lung Volumes: Total lung capacity normal. Residual volume borderline in proportion. Diffusing Capacity: Diffusing capacity is reduced but is appropriate for alveolar volume. Hemoglobin: Hemoglobin acceptable at 13.7. Airway Mechanics: Airway resistance elevated with a concomitant decrease in airway conductance. IMPRESSION: Nonspecific flow rate limitation with no significant bronchodilator response. Diffusing capacity impairment. Please correlate clinically. MTDD
== END ==
LOC: M CARPUL 13:25
PROVIDERS: ATTEND Thoracic Surgery (Cardiothoracic Vascular Surgery)
DX: R91.1 Solitary pulmonary nodule (principal)

== ENCOUNTER → 2020-06-21 | Outpatient (CLI) | payer MEDICARE, MEDICAID ==
--- NOTE | 2020-08-15 09:34 | REP ---
WHOLE BODY PET/CT SCANNING FOR FOLLOWUP OF LEFT LUNG NODULE COMPARISON: Whole body PET/CT scan dated 11/26/2018. TECHNIQUE: Whole body scanning is performed from the skull base to the upper thighs. FINDINGS: NECK AND SUPRACLAVICULAR AREAS: There are no hypermetabolic foci. This is unchanged. CHEST: There is a hypermetabolic focus in the upper lobe of the left lung. This was also present on the comparison study. The standard uptake value maximally measures 16.5 in this nodule today. Previous standard uptake value in this nodule was 4.5. The nodule has increased in size today measuring 16 mm in greatest diameter and previously measured 11 mm in greatest diameter. There are no other hypermetabolic foci in the chest. There is a focal zone of stable parenchymal scarring inferolaterally in the right lung, unchanged from the prior study. The maximal standard uptake value within this area is 1.5, non-hypermetabolic. The patient reportedly has had a right thoracotomy for a previous right lung nodule that is no longer present. There are no other hypermetabolic foci in the chest. ABDOMEN, PELVIS, AND UPPER THIGHS: There are no hypermetabolic foci. Specifically, no adrenal foci are identified. On the CT accompanying the PET scan, there are two gallbladder calculi. There is no evidence of gallbladder or biliary duct dilatation. IMPRESSION: Left upper lobe lung nodule has increased in size and has significantly increased in hypermetabolic radiolabeling. There are no other hypermetabolic foci in the chest. There is a stable zone of parenchymal scarring inferolaterally in the right lung that demonstrates no radiotracer uptake. There are no other hypermetabolic foci. The study is performed with 8.4 mCi of F18 FDG. MTDD
== END ==
LOC: M PLARAD 08:00
PROVIDERS: ATTEND Thoracic Surgery (Cardiothoracic Vascular Surgery)
DX: R91.1 Solitary pulmonary nodule (principal)
CPT/HCPCS: 78815; A9552

== ENCOUNTER → 2020-07-19 | Outpatient (CLI) | payer MEDICARE, MEDICAID ==
[2020-07-19 16:20] LABS: BASO % 0.3 % (0.0-1.0); EOS # 0.1 10^3/uL (0.0-0.5); HEMOGLOBIN 13.3 g/dl (12.0-15.5); LYMPH # 1.4 10^3/uL (1.5-5.0); LYMPH % 23.9 % (24.0-44.0); MEAN CORPUSCULAR HEMOGLOBIN 33.9 pg (27.0-33.0); MEAN CORPUSCULAR HGB CONC 33.3 g/dl (32.0-36.5); MONO # 0.5 10^3/uL (0.0-0.8); MONO % 8.3 % (0.0-5.0); NEUTROPHILS # 3.9 10^3/uL (1.5-8.5); NEUTROPHILS % 66.2 % (36.0-66.0); PLATELET COUNT, AUTOMATED 142 10^3/uL (150-450); RED BLOOD COUNT 3.92 10^6/uL (4.00-5.40); WHITE BLOOD COUNT 5.9 10^3/uL (4.0-10.0)
[2020-07-19 17:06] LABS: ALBUMIN 3.5 GM/DL (3.2-5.2); ALT/SGPT 25 U/L (12-78); BILIRUBIN,TOTAL 0.5 MG/DL (0.2-1.0); BLOOD UREA NITROGEN 12 MG/DL (7-18); CALCIUM LEVEL 9.4 MG/DL (8.8-10.2); CARBON DIOXIDE LEVEL 29 MEQ/L (21-32); CHLORIDE LEVEL 104 MEQ/L (98-107); CHOLESTEROL LEVEL 187 MG/DL (<200); CHOLESTEROL RISK RATIO 2.527 (<5); CREATININE FOR GFR 0.97 MG/DL (0.55-1.30); GLOMERULAR FILTRATION RATE > 60.0 (>45); GLUCOSE, FASTING 121 MG/DL (70-100); HDL CHOLESTEROL 74 MG/DL (>40); LDL CHOLESTEROL 95 MG/DL (<100); NON-HDL-C 113 MG/DL; POTASSIUM SERUM 3.5 MEQ/L (3.5-5.1); SODIUM LEVEL 140 MEQ/L (136-145); TOTAL PROTEIN 7.7 GM/DL (6.4-8.2); TRIGLYCERIDES LEVEL 89 MG/DL (<150)
[2020-07-19 22:23] LABS: HEMOGLOBIN A1c 5.4 %
== END ==
LOC: M LAB 15:23
PROVIDERS: ATTEND Internal Medicine
DX: Z00.00 Encounter for general adult medical examination without abnormal findings (principal); Z79.899 Other long term (current) drug therapy

== ENCOUNTER → 2020-07-19 | Outpatient (CLI) | payer MEDICARE, MEDICAID ==
[2020-07-19 16:19] LABS: PLATELET COUNT, AUTOMATED 144 10^3/uL (150-450)
[2020-07-19 16:30] LABS: INR 1.16; PROTHROMBIN TIME 15.1 SECONDS (11.8-14.0)
[2020-07-19 16:31] LABS: PARTIAL THROMBOPLASTIN TIME 28.6 SECONDS (25.0-38.4)
== END ==
LOC: M LAB 15:20
PROVIDERS: ATTEND Thoracic Surgery (Cardiothoracic Vascular Surgery)
DX: Z01.812 Encounter for preprocedural laboratory examination (principal); R91.1 Solitary pulmonary nodule

== ENCOUNTER → 2020-07-20 | Outpatient (CLI) | payer MEDICARE, MEDICAID ==
[~2020-07-20] MED LIST changes: +LIDOCAINE 1% MDV 20ML VIAL As Ordered ONE
[2020-07-20 16:15] VITALS: BP 161/70
--- NOTE | 2020-07-27 15:00 | REP ---
CHEST X-RAY: SINGLE PA VIEW HISTORY: Post CT-guided needle biopsy for nodule left upper lobe with post biopsy alveolar hemorrhage. Hemoptysis. COMPARISON STUDY: 11/05/2019. FINDINGS: Oxygen delivery tubing is noted. There is an alveolar infiltrate in the left upper lobe corresponding to the parenchymal hemorrhage seen on CT. There is no evidence of pneumothorax or hemithorax. The remainder of the left lung and the right lung remain clear. There are post thoracotomy changes on the right. IMPRESSION: Alveolar infiltrate pattern in the left upper lobe corresponding to the hemorrhage seen on CT. No pneumothorax seen. MTDD
--- NOTE | 2020-07-27 15:02 | REP ---
CT-GUIDED LEFT UPPER LOBE LUNG BIOPSY The procedure was performed under the direct supervision of Dr. Tafoya. The patient has a history of a 14-mm pulmonary nodule in the posterior left upper lobe seen on a previous CT scan dated 05/23/2020. The risks and benefits of the procedure were explained to the patient and informed consent was obtained. The left upper lobe lung nodule was localized using CT guidance. The skin was prepped and draped in a sterile fashion. 1% Lidocaine was used as a local anesthetic. Using CT guidance, a 19-20 gauge coxial needle biopsy system was inserted and advanced into the nodule. Two core biopsy samples were obtained and sent to the lab. The patient did develop some parenchymal bleeding with hemoptysis. The patient tolerated the procedure well. After the appropriate amount of monitored convalescence, the patient was discharged from the department. ROBERT
--- NOTE | 2020-07-27 15:04 | REP ---
PA CHEST X-RAY: SINGLE VIEW HISTORY: Post CT-guided lung biopsy hemoptysis. Discomfort left chest. Follow up. Known parenchymal hemorrhage. COMPARISON: Radiograph from 07/20/20 at 12:49 PM FINDINGS: The alveolar density seen on the film done 1 hours ago is again seen, essentially unchanged in extent, although increased in opacity. There is no evidence of pneumothorax or hemothorax. The remainder of the left lung and the right lung remain otherwise clear. IMPRESSION: Known parenchymal hemorrhage in the left upper lobe slightly more opaque but unchanged in size. No pneumothorax. MTDD
== END ==
LOC: M IRPRO 08:22
PROVIDERS: ATTEND Thoracic Surgery (Cardiothoracic Vascular Surgery)
DX: C34.92 Malignant neoplasm of unspecified part of left bronchus or lung (principal); R04.2 Hemoptysis

== ENCOUNTER → 2020-07-28 | Outpatient (CLI) | payer MEDICARE, MEDICAID ==
[~2020-07-28] MED LIST changes: -LIDOCAINE 1% MDV 20ML VIAL As Ordered ONE
--- NOTE | 2020-07-28 11:50 | REPVR ---
PROCEDURE INFORMATION: Exam: XR Chest, 2 Views Exam date and time: 07/28/2020 11:33 AM Age: 65 years old Clinical indication: Other: Soltiary pulmonary nodule; Additional info: Solitary pulmorary nodule TECHNIQUE: Imaging protocol: XR of the chest Views: 2 views. COMPARISON: CT Chest with contrast 05/23/2020 9:42 AM FINDINGS: Lungs: Comparing this to the nutrition associate topogram of the CT the left lung demonstrates a possible lesion measuring 18 mm in the left upper lobe. This was 13 mm seen on the CT scan.. There is volume loss noted on the right with blunting of the right costophrenic angle and a minimal amount linear streaking in the right lung. These findings were all stable. Pleural space: See "Lungs" finding. Heart/Mediastinum: Unremarkable. No cardiomegaly. Bones/joints: Unremarkable. IMPRESSION: Stable right lung with a questionable left upper lobe nodule. Electronically signed by: Phillip Pope On 07/28/2020 11:50:36 AM
== END ==
LOC: M RAD 11:14
PROVIDERS: ATTEND Thoracic Surgery (Cardiothoracic Vascular Surgery)
DX: R91.1 Solitary pulmonary nodule (principal)

== ENCOUNTER → 2020-08-23 | Outpatient (CLI) | payer MEDICARE, MEDICAID ==
--- NOTE | 2020-08-23 10:38 | RADONC.CN ---
Radiation Oncology Hx/Consult Radiation Oncology Consult Date of Service: Aug 23, 2020 Pt Identifier Jared Peterson is a 65 year old female current 1/2 ppd smoker with a history RLL lobectomy for NSCLC in 2014 and multiple sclerosis who has a newly diagnosed biopsy proven [id number] NSCLC of the [place]. She is seen for consideration of SBRT after being deemed inoperable. Diagnosis/Treatment History Oncologic History [address] Ely for [id number] NSCLC in remission November 2018 PET-CT with SUV 4.5 [place] nodule January 2019 Bronchoscopy for new [place] nodule non-diagnostic April 2019 Lesion was noted to have resolved on CT November 2019 CT chest showing return of [place] nodule April 2020 CT showing growth to 1.4 cm May 2020 PET-CT demonstrating avidity in the lesion no adenopathy in the chest 07/20/20 CT biopsy showing NSCLC PFTs January 2019 FEV 1.47 76% DLCO 13.4 64% Interval History Feels constant fatigue related to multiple sclerosis for which she is currently off disease modifying therapy. She is a current smoker, no interest in quitting today. She has chronic whole body pain. She has TELLO, but does ambulate with a walker. No cough. Today she has some sinus congestion thinks she has a cold. No fevers, chills, weight loss. Past Medical History: Carpal tunnel Multiple sclerosis GERD CAD HTN PE in 2018 COPD Past Surgical History: As above Family History: Non-contributory Social History: 30 pk year current 1/2 ppd 2 drinks per day Allergies / Meds Allergies: Coded Allergies: azithromycin (Verified Allergy, Unknown, 10/01/19) Home Meds Reported Medications [place]-3 Fatty Acids/Fish Oil (Fish Oil 1,000 mg Capsule) 1 Each Capsule, 1000 MG PO DAILY, CAP 07/20/20 Cholecalciferol (Vitamin D3) (Vitamin D3) 1,000 Unit Tablet, 1000 UNITS PO D AILY, TAB 07/20/20 Cyanocobalamin (Vitamin B-12) (Vitamin B-12) 1,000 Mcg Tablet, 1000 MCG PO DAILY, TAB 07/20/20 Nystatin (Nystatin Powder) 15 Gm Powder, 1 DOSE TOP DAILY APPLIED TO FOLDS 07/20/20 Gabapentin (Gabapentin) 300 Mg Capsule, 300 MG PO BID PRN for PAIN 07/20/20 Chlorthalidone (Chlorthalidone) 25 Mg Tablet, 12.5 MG PO DAILY 11/05/19 Spironolactone (Spironolactone) 25 Mg Tablet, 12.5 MG PO DAILY, TAB 11/05/19 Sertraline HCl (Sertraline HCl) 100 Mg Tablet, 100 MG PO DAILY 11/05/19 Apixaban (Eliquis) 2.5 Mg Tablet, 2.5 MG PO BID, TAB 11/05/19 Omeprazole (Omeprazole) 20 Mg Capsule.dr, 20 MG PO DAILY, CAP 11/05/19 Gabapentin (Gabapentin) 300 Mg Capsule, 300 MG PO DAILY 11/05/19 Baclofen (Baclofen) 20 Mg Tab, 20 MG PO TID PRN for MUSCLE SPASMS, TAB 03/01/17 Review of Systems General: Reports: Fatigue; Denies: Chills, Night Sweats Eyes: Denies: Pain, Vision change HEENT: Reports: Ear Pain, Sinus Congestion; Denies: Dysphagia, Sore Throat Skin: Denies: Rash, Lesions Pulmonary: Reports: Dyspnea; Denies: Pleuritic Chest Pain Cardiovascular: Reports: Edema; Denies: Chest Pain, Palpitations Breast: Reports: Breast Pain or Tenderness; Denies: New Breast Lumps / Masses Gastrointestinal: Denies: Nausea, Vomiting, Abdominal Pain Genitourinary: Denies: Dysuria, Frequency, Incontinence, Retention Hematologic: Denies: Bruising, Petecchia, Purpura Endocrine: Denies: Polydipsia, Polyphagia Musculoskeletal: Reports: Neck pain, Shoulder pain, Arm pain, Back pain, Leg pain, Joint pain, Muscle pain Neurological: Reports: Numbness, Incoordination; Denies: Weakness, Change in Speech, Confusion, Seizures Psych: Reports: Mood Normal Vital Signs Ht 63" Wt 264 lb BMI 46 T 97.8 P 84 RR 20 BP 144/70 O2 96% General Exam: Positive: Alert, Cooperative, No Acute Distress Eye Exam: Positive: PERRLA, EOMI ENT EXAM: Positive: Mucous membr. moist/pink, Pharynx Normal, Tongue Midline, Tympanic Membranes Normal, Ext Auditory Canal Nml; Negative: Atraumatic Neck Exam: Positive: Supple; Negative: Lymphadenopathy Chest Exam: Positive: Clear to auscultation, Wheezing Heart Exam: Positive: Rate Normal, Regular Rhythm Abdomen Exam: Positive: Normal bowel sounds, Soft; Negative: Tenderness Extremity Exam: Positive: Edema, Normal pulses Skin Exam: Positive: Nl turgor and temperature; Negative: Rash Neuro Exam: Positive: Normal Gait, Normal Speech, Normal Tone, Cranial Nerves 3-12 NL Psych Exam: Positive: Mental status NL, Mood NL; Negative: Anxiety Diagnostic and Laboratory Diagnostic Review Radiologic images, relevant labs and pathology reports were personally reviewed and discussed with Ms. Peterson. Assessment and Plan Impression Ms. Peterson is a 65 year old female current 1/2 ppd smoker with a history RLL lobectomy for NSCLC in 2015 and multiple sclerosis who has a newly diagnosed biopsy proven [id number] NSCLC of the [place]. She is seen for consideration of SBRT after being deemed inoperable. Stage NSCLC [id number] Stage IA2 Performance Status ECOG 2 Plan We had an extensive discussion with Ms. Peterson regarding the diagnosis at hand and available therapeutic options. She has a small peripheral NSCLC in the [place] which is amenable to SBRT. Her pulmonary function is adequate for this treatment. I would give 60 Gy in 5 fractions with DCA treatment planning. I would use a 4DCT/ITV approach to account for target motion during the respiratory cycle and delivery treatment with amplitude gating. She would not be a good candidate for a breath hold approach given her baseline dyspnea and restrictive habitus. We discussed the logistics of receiving radiation therapy in detail including the need for a 1-time planning session. We discussed that smoking cessation would lead to reduction of recurrence risk. She is not interested in quitting today. We reviewed the possible side effects of treatment including fatigue (which she already has in significant degree due to multiple sclerosis) and 5-8% risk of symptomatic pneumonitis. After discussing the risks, benefits and alternatives to radiation therapy, Ms. Peterson was amenable to pursuing radiotherapy. All questions were answered to the patient's satisfaction. We instructed the patient that if there were any questions,concerns or changes in clinical status in the interim to contact us. Recommendations SBRT 60 Gy in 5 fractions Simulation in the coming week SINGH DURAN MD Aug 23, 2020 10:38
== END ==
LOC: M ONCR 08:55
PROVIDERS: ATTEND General Practice
DX: C34.11 Malignant neoplasm of upper lobe, right bronchus or lung (principal); Z90.2 Acquired absence of lung [part of]; F17.218 Nicotine dependence, cigarettes, with other nicotine-induced disorders; G35 Multiple sclerosis

== ENCOUNTER 2020-09-23 12:44 | Outpatient (RCR) | payer MEDICARE, MEDICAID | END 2020-09-24 | LOC: M ONCR 12:44 | PROVIDERS: ATTEND General Practice | DX: C34.12 Malignant neoplasm of upper lobe, left bronchus or lung (principal) ==

== ENCOUNTER → 2020-12-19 | Outpatient (CLI) | payer MEDICAID, MEDICARE ==
[~2020-12-19] MED LIST changes: +AZIT-10 PO; +CYAN500T14 PO; -CYAN500T8 PO; +GABA-282 PO; -GABA-843 PO; +ISOVUE-370 76% 100ML VIAL As Ordered ONE; -LISI-538 PO; +LISI20TA33 PO
--- NOTE | 2020-12-19 16:23 | REP ---
INDICATION: MALIGNANT NEOPLASM OF UPPER LOBE, LEFT BRONC OR LUNG. COMPARISON: Multiple the latest 05/23/2020, all reviewed. TECHNIQUE: 100 cc Isovue 370 FINDINGS: There is no significant change in appearance of the mediastinum or pulmonary skylar. There are no pleural or pericardial effusions. There is no significant change in appearance of the imaged upper abdomen or imaged osseous structures. Note is again made of cholelithiasis. Evaluation of the lung hurley shows a significant decrease in size in the spiculated left upper lobe nodule which previously measured 1.4 cm today measures 9 mm. No new abnormal nodules, masses, or opacities have developed. IMPRESSION: Improvement as described above. <Electronically signed by Jose Izquierdo > 12/19/20 [id number]
== END ==
LOC: M RAD 13:23
PROVIDERS: ATTEND General Practice
DX: C34.12 Malignant neoplasm of upper lobe, left bronchus or lung (principal)
CPT/HCPCS: 71260; Q9967

== ENCOUNTER → 2020-12-21 | Outpatient (CLI) | payer MEDICARE, MEDICAID ==
[~2020-12-21] MED LIST changes: -ISOVUE-370 76% 100ML VIAL As Ordered ONE
--- NOTE | 2020-12-21 10:58 | RADONC ---
Radiation Oncology Hx/FUP Radiation Oncology Hx/FUP Date of Service: Dec 21, 2020 Pt Identifier Jared Peterson is a 65 year old female current 1/2 ppd smoker with a history RLL lobectomy for NSCLC in 2014 and multiple sclerosis and a biopsy-proven [id number] stage IA2 NSCLC of the [place]. She completed SBRT to the lesion 60 Gy in 5 fractions on 09/23/20. Diagnosis/Treatment History Oncologic History [address] Ely for [id number] NSCLC in remission November 2018 PET-CT with SUV 4.5 [place] nodule January 2019 Bronchoscopy for new [place] nodule non-diagnostic April 2019 Lesion was noted to have resolved on CT November 2019 CT chest showing return of [place] nodule April 2020 CT showing growth to 1.4 cm May 2020 PET-CT demonstrating avidity in the lesion no adenopathy in the chest 07/20/20 CT biopsy showing NSCLC 09/23/20 Completed SBRT 60 Gy in 5 fractions with DCA and FB amplitude gated delivery Relevant data: 12/19/20 CT chest Interval reduction in size of [place] nodule, now 0.9 cm with associated post-RT changes. Previously 1.4 cm. No new nodules. Interval History Still smoking 10 cigarettes daily. Not interested in quit aids. No pulmonary complaints. Has some sinus pressure/pain and post nasal drip. 3 weeks duration, some irritation of throat from drip. Appetite good, weight up, energy levels ok. Interested in going to [facility] for exercise classes. Worried about COVID however. Current Therapy Surveillance Stage NSCLC [place] [id number] stage IA2 Social History: 30 pk year current 1/2 ppd 2 drinks per day Allergies / Meds Allergies: Coded Allergies: azithromycin (Verified Allergy, Unknown, 10/01/19) Home Meds Reported Medications [place]-3 Fatty Acids/Fish Oil (Fish Oil 1,000 mg Capsule) 1 Each Capsule, 1000 MG PO DAILY, CAP 07/20/20 Cholecalciferol (Vitamin D3) (Vitamin D3) 1,000 Unit Tablet, 1000 UNITS PO DAILY, TAB 07/20/20 Cyanocobalamin (Vitamin B-12) (Vitamin B-12) 1,000 Mcg Tablet, 1000 MCG PO DAILY, TAB 07/20/20 Nystatin (Nystatin Powder) 15 Gm Powder, 1 DOSE TOP DAILY APPLIED TO FOLDS 07/20/20 Gabapentin (Gabapentin) 300 Mg Capsule, 300 MG PO BID PRN for PAIN 07/20/20 Chlorthalidone (Chlorthalidone) 25 Mg Tablet, 12.5 MG PO DAILY 11/05/19 Spironolactone (Spironolactone) 25 Mg Tablet, 12.5 MG PO DAILY, TAB 11/05/19 Sertraline HCl (Sertraline HCl) 100 Mg Tablet, 100 MG PO DAILY 11/05/19 Apixaban (Eliquis) 2.5 Mg Tablet, 2.5 MG PO BID, TAB 11/05/19 Omeprazole (Omeprazole) 20 Mg Capsule.dr, 20 MG PO DAILY, CAP 11/05/19 Gabapentin (Gabapentin) 300 Mg Capsule, 300 MG PO DAILY 11/05/19 Baclofen (Baclofen) 20 Mg Tab, 20 MG PO TID PRN for MUSCLE SPASMS, TAB 03/01/17 Review of Systems Review of Systems Constitutional: Reports: Fatigue, Normal appetite; Denies: Weight Loss Eyes: Denies: Pain, Vision change HEENT: Reports: Sinus Congestion, Post Nasal Drip, Sore Throat Skin: Denies: Rash Pulmonary: Denies: Dyspnea Cardiovascular: Denies: Chest Pain, Palpitations Gastrointestinal: Denies: Nausea, Vomiting, Abdominal Pain Hematologic: Denies: Bruising Endocrine: Denies: Polydipsia Musculoskeletal: Reports: Neck pain; Denies: Back pain Neurological: Denies: Weakness, Incoordination, Change in Speech Psych: Reports: Mood Normal Physical Examination Vital Signs Wt 275 lb T 97 P 96 RR 18 BP 148/79 O2 97% Pain 0 Fatigue 0 General Exam: Positive: Alert, Cooperative, No Acute Distress Eye Exam: Positive: PERRLA, Conjunctiva & lids normal, EOMI ENT EXAM: Positive: Atraumatic, Mucous membr. moist/pink, Other ENT (tender over maxillary and frontal sinuses R>L) Neck Exam: Positive: Supple Chest Exam: Positive: Clear to auscultation, Wheezing (Bl ) Heart Exam: Positive: Rate Normal, Regular Rhythm Extremity Exam: Negative: Edema Skin Exam: Positive: Nl turgor and temperature Neuro Exam: Positive: Normal Gait, Normal Speech, Cranial Nerves 3-12 NL Psych Exam: Positive: Mental status NL, Mood NL Diagnostic and Laboratory Diagnostic Review Radiologic images, relevant labs and pathology reports were personally reviewed and discussed with Curry Nicholas. Assessment and Plan Impression Assessment Ms. Peterson is a 65 year old female with a history of current 1/2 ppd smoker with a history RLL lobectomy for NSCLC in 2015 and multiple sclerosis and a biopsy- proven [id number] stage IA2 NSCLC of the [place]. She completed SBRT to the lesion 60 Gy in 5 fractions on 09/23/20. She thinks she has a sinus infection, some tenderness on exam. Discussed z-pack, she is agreeable to trying this. She also has wheezing on chest exam, history of COPD, not interested in inhaled meds at this time but could consider in the future. We also discussed that she should continue annual mammograms and well woman visits. She will call [facility] to schedule. Her CT chest shows marked reduction in the size of the treated lesion and no new nodules. Because of this good response we can scan again in 6 months time. Performance Status ECOG [address] chest in 6 months Z-pack Follow up in 6 months Ms. Peterson was encouraged to call with questions or concerns in the interim period. SINGH DURAN MD Dec 21, 2020 10:58
== END ==
LOC: M ONCR 09:47
PROVIDERS: ATTEND General Practice
DX: C34.12 Malignant neoplasm of upper lobe, left bronchus or lung (principal); F17.210 Nicotine dependence, cigarettes, uncomplicated

== ENCOUNTER → 2021-01-05 | Outpatient (REF) | payer MEDICARE | LOC: M SFHCPLAZ 14:36 | PROVIDERS: ATTEND Internal Medicine | DX: Z00.00 Encounter for general adult medical examination without abnormal findings (principal); Z53.9 Procedure and treatment not carried out, unspecified reason ==

== ENCOUNTER → 2021-01-06 | Outpatient (REF) | payer MEDICARE | LOC: M SFHCPLAZ 15:45 | DX: G35 Multiple sclerosis (principal) ==

== ENCOUNTER → 2021-02-17 | Outpatient (CLI) | payer MEDICARE ==
--- NOTE | 2021-02-23 03:23 | ECWPNPC ---
PATIENT NAME: TYLER GONZÁLES : 1955 GENDER: FEMALE VISIT DATE: 02/17/2021 DISCHARGE DATE: 02/17/21 1412 VISIT LOCKED DATE TIME: PHYSICIAN: MOODY PRADHAN PHYSICIAN PAGER NO: ACTIVE RESOURCE: MOODY PRADHAN REASON FOR APPOINTMENT 1. NECK,LOW BACK HISTORY OF PRESENT ILLNESS GENERAL: 65-YEAR-OLD FEMALE KNOWN TO OUR PRACTICE RETURNS FOR EVALUATION OF PERSISTENT NECK AND LOW BACK PAIN. SINCE HER LAST VISIT IN 2018 SHE'S BEEN DIAGNOSED WITH LUNG CANCER. CURRENTLY UNDER THERAPY WITH [facility]. STATES SHE WENT THROUGH RADIATION THERAPY. PATIENT ALSO GAINED QUITE A BIT OF WEIGHT SINCE 2018. CONTINUES TO SMOKE AND REPORTS THAT SHE CONTINUES TO DRINK ALCOHOL DAILY. DUE TO THIS SHE IS AWARE THAT SHE WOULD NOT BE A GOOD CANDIDATE TO HAVE OPIOID PAIN MEDICATION. UNFORTUNATELY WE WOULD NEED CLEARANCE FROM ONCOLOGY TO DO ANY TYPE OF TRIGGER POINT INJECTIONS WITH STEROIDS THAT HAVE BEEN HELPFUL FOR HER IN THE PAST.- - -. FALL RISK SCREENING: SCREENING : NO FALLS REPORTED IN THE LAST YEAR , : NO FALLS REPORTED IN THE LAST YEAR. PAIN SCREENING: PATIENT HAS A COMPLAINT OF ACUTE OR CHRONIC PAIN :YES LOCATION OF PAIN:NECK, LOW BACK PAIN GOES INTO BOTH HIPS INTENSITY OF PAIN (SCALE OF 1 TO 10):7 WHAT DOES YOUR PAIN FEEL LIKE:ACHING DURATION:ONLY WITH SPECIFIC ACTIVITIES PAIN IS INCREASED BY:ACTIVITIES PAIN IS DECREASED BY:OTHERS HEAT HELPS NURSING NOTE: - - -. PAIN CENTER INTAKE QUESTIONS: DO YOU HAVE A HISTORY OF MRSA? :YES DO YOU TAKE A BLOOD THINNERS? :YES ELIQUIS DO YOU HAVE ANY BLEEDING DISORDERS? :NO ANY NEW NUMBNESS OR WEAKNESS IN YOUR LEGS OR ARMS? :NO ANY PACEMAKER,DEFIBRILLATOR, OR DORSAL COLUMN STIMULATOR? :NO DO YOU HAVE ANY RASHES OR OPEN SORES? :NO ARE YOU ALLERGIC TO IV DYE? :NO ARE YOU DIABETIC? :NO ANY NEW PROBLEMS WITH YOUR MEDICATIONS? :NO HAVE YOU RECEIVED A VACCINE IN THE PAST 30 DAYS? :YES IF SO WHAT VACCINE AND WHEN? 1ST COVID 02/03/2021 DO YOU PLAN TO RECEIVE A VACCINE IN THE NEXT 21 DAYS? :YES IF SO WHAT VACCINE AND WHEN? 2ND COVID 03/07/2021 DO YOU NEED ANY PRESCRIPTION? :NO DO YOU TAKE ANY IMMUNOSUPPRESSIVE MEDICATIONS? :NO CURRENT MEDICATIONS TAKING OMEPRAZOLE 20 MG CAPSULE DELAYED RELEASE 1 CAPSULE ORALLY ONCE A DAY TAKING ZOLOFT 100 MG TABLET 1 TABLET ORALLY ONCE A DAY TAKING SPIRONOLACTONE 25 MG TABLET 1/2 TABLET ORALLY ONCE A DAY TAKING CHLORTHALIDONE 25 MG TABLET 1 TABLET IN THE MORNING WITH FOOD ORALLY ONCE A DAY TAKING GABAPENTIN 300 MG CAPSULE 1 CAPSULE ORALLY FOUR TIMES A DAY TAKING XANAX 1 MG TABLET 1 TABLET ORALLY NEEDED FOR ANXIETY TAKING ELIQUIS 2.5 MG TABLET TAKE ONE TABLET BY MOUTH TWICE A DAY TAKING VITAMIN D 2000 UNIT TABLET 1 TABLET ORALLY ONCE A DAY TAKING FLUTICASONE PROPIONATE 50 MCG/ACT SUSPENSION 1 SPRAY IN EACH NOSTRIL NASALLY ONCE A DAY TAKING VITAMIN B12 1000 MCG TABLET EXTENDED RELEASE 1 TABLET ORALLY ONCE A DAY TAKING BACLOFEN 20 MG TABLET 1 TABLET WITH FOOD OR MILK ORALLY THREE TIMES PER DAY TAKING HYDROXYZINE HCL 50 MG TABLET TAKE ONE TABLET BY MOUTH AT BEDTIME NOT-TAKING OMEPRAZOLE 20 MG CAPSULE DELAYED RELEASE 1 CAPSULE ORALLY ONCE A DAY NOT-TAKING ZOLOFT 100 MG TABLET TAKE ONE TABLET BY MOUTH EVERY DAY NOT-TAKING ZYRTEC ALLERGY 10 MG TABLET 1 TABLET ORALLY ONCE A DAY NOT-TAKING NAPROXEN 500 MG TABLET DELAYED RELEASE 1 TABLET ORALLY NEEDED NOT-TAKING XANAX 1 MG TABLET 1 TABLET ORALLY NEEDED FOR ANXIETY MEDICATION LIST REVIEWED AND RECONCILED WITH THE PATIENT PAST MEDICAL HISTORY CHRONIC HEPATITIS C - DX 1998 GENOTYPE 1 A, VL 2.5 MILLION, F1 FIBROSIS, LIVER US GALLSTONES 2013, Q80K POLYMORPHISM TREATMENT VIEKIRA PACK/ RIBAVIRIN FOR 12 WEEKS SVR 12 CURED HTN ALCOHOLISM WENT TO DETOX AND REHAB 07/2013 AND 07/22/2014 AND 06/2015 DEPRESSION HX IVDU ALCOHOLIC NEUROPATHY SUSPECTED MS WITH DEMYLINATING PLAQUES IN BRAIN AND THORACIC SPINE VITAMIN B12 DEFICIENY CAPARL TUNNEL BENJAMIN. 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 SURGICAL HISTORY PROLAPSED UTERUS 1998 UTERINE RUPTURE 1987 RIGHT LOWER LUNG LOBECTOMY 10/17/15 BRONCHOSCOPY 01/2019 FAMILY HISTORY FATHER: ALIVE, HTN MOTHER: SIBLINGS: ALIVE SON(S): ALIVE DAUGHTER(S): ALIVE 2 SISTER(S) - HEALTHY. 2 SON(S) , 1 DAUGHTER(S) - HEALTHY. SOCIAL HISTORY GENERAL: TOBACCO USE ARE YOU A:CURRENT SMOKER ARE YOU INTERESTED IN QUITTING?THINKING ABOUT QUITTING COUNSELED THE PATIENT ON SMOKING CESSATION, EDUCATION [id number]/26/2021 HOW MANY CIGARETTES A DAY DO YOU SMOKE?11-20 HOW SOON AFTER YOU WAKE UP DO YOU SMOKE YOUR FIRST CIGARETTE?6-30 MIN HOW OFTEN DO YOU SMOKE CIGARETTES?EVERY DAY PATIENT COUNSELED ON THE DANGERS OF TOBACCO USE AND URGED TO QUIT:07/09/2019 LATEX QUESTIONNAIRE LATEX ALLERGY : HAVE YOU EVER DEVELOPED ANY TYPE OF REACTION AFTER HANDLING LATEX PRODUCTS SUCH RUBBER GLOVES, CONDOMS, DIAPHRAGMS, BALLOONS, SOCKS, OR UNDERWEAR?NO LATEX ALLERGY : HAVE YOU EVER DEVELOPED ANY TYPE OF REACTION DURING OR AFTER DENTAL APPOINTMENT, VAGINAL/RECTAL EXAMINATION, SURGICAL PROCEDURE, OR ANY OTHER EXPOSURE?NO LATEX RISK : HAVE YOU EVER HAD ANY DIFFICULTY BREATHING OR HIVES AFTER EATING OR HANDLING ANY FRUITS, OR VEGETABLES; SUCH KIWI, BANANAS, STONE FRUITS, OR CHESTNUTSNO LATEX RISK : DO YOU HAVE A PREVIOUS PERSONAL HISTORY OF MORE THAN NINE SURGERIES, SPINA BIFIDA, OR REPEATED CATHERIZATIONS? NO LATEX RISK : ARE YOU FREQUENTLY EXPOSED TO LATEX PRODUCTS IN YOUR OCCUPATION?NO DATE ASKED : 02/17/2021 ALCOHOL USE: YES, 3 CANS A DAY. BMI CARE GOAL FOLLOW-UP ABOVE NORMAL BMI FOLLOW-UPGIVING ENCOURAGEMENT TO EXERCISE ALCOHOL SCREENING DID YOU HAVE A DRINK CONTAINING ALCOHOL IN THE PAST YEAR?YES HOW OFTEN DID YOU HAVE A DRINK CONTAINING ALCOHOL IN THE PAST YEAR?TWO TO THREE TIMES PER WEEK (3 POINTS) POINTS3 INTERPRETATIONPOSITIVE RECREATIONAL DRUG USE DRUG USE?NO CAFFEINE CAFFEINE USE?YES COFFEE TWO A DAY SEXUAL HX HAD SEX IN THE LAST 12 MONTHS (VAGINAL, ORAL, OR ANAL)?NO HIV / HEP-C SCREENING HIV TEST OFFERED TO PATIENT:YES DATE OFFERED:02/20/2017 TEST ACCEPTED:NO HEP-C TEST OFFERED TO PATIENT:YES DATE OFFERED:02/20/2017 REASON:PATIENT DECLINED TEST ACCEPTED:NO REASON:PATIENT DECLINED CONFUCIANISM CONFUCIANISM NO ADVENT BELIEFS THAT WOULD IMPACT HEALTH CARE. LANGUAGE LANGUAGES SPOKEN:SIERRA LEONEAN EDUCATION LEVEL OF EDUCATION:HIGH SCHOOL GED LEARNING BARRIERS / SPECIAL NEEDS CHANGE FROM LAST VISIT?NO BARRIERS TO LEARNING?NO HEARING IMPAIRED?NO VISION IMPAIRED?YES :CORRECTIVE LENSES COGNITIVELY IMPAIRED?NO READINESS TO LEARN?YES LEARNING PREFERENCES?YES :DEMONSTRATION/VERBAL INSTRUCTION LEARNING CAPABILITIES PRESENT?YES EMOTIONAL BARRIERS?NO SPECIAL DEVICES?YES :CANE, WALKER NEEDED CENTRIFUGAL WAX MOLDER NEEDED?NO OCCUPATION: UNEMPLOYED. DIET: REGULAR. EXERCISE: NO REGULAR EXERCISE. MARITAL STATUS: SINGLE. OTHERS AT HOME: NONE. - HAS THE PATIENT BEEN EDUCATED REGARDING HIS/HER PLAN OF CARE?YES HAS THE PATIENT BEEN EDUCATED REGARDING PAIN, THE RISK FOR PAIN, THE IMPORTANCE OF EFFECTIVE PAIN MANAGEMENT, AND THE PAIN ASSESSMENT PROCESS?YES HOSPITALIZATION/MAJOR DIAGNOSTIC PROCEDURE FOR[facility]LY [facility] - DEPRESSION/SUICIDAL IDEATION 06/2013 REHAB 06/2015 PE PULMONARY EMBOLISM 05/14/2018-05/16/2018 ETOH INTOX, HYPOTHERMIA 10/2019 REVIEW OF SYSTEMS CONSTITUTIONAL: ANY RECENT FEVER NO . CHILLS NO . WEIGHT CHANGE OF UNKNOWN REASONS NO . GASTROENTEROLOGY: NEW UNEXPLAINABLE CHANGES IN BOWEL CONTROL NO . CONSTIPATION NO . GENITOURINARY: ANY NEW CHANGE IN BLADDER CONTROL? NO . NEUROLOGY: NEW ONSET DIZZINESS OR NEUROLOGICAL CHANGES NOT MENTIONED NO . NEW NUMBNESS OR PAIN PATTERNS NOT MENTIONED AND PERTINENT TO TODAY'S VISIT NO . CARDIOLOGY: NEW CHEST PRESSURE NO . PATIENT DENIES NO . RESPIRATORY: UNEXPLAINABLE COUGH NO . NEW SHORTNESS OF BREATH NO . VITAL SIGNS WT 280.8 LBS, HT 62 IN, BMI 51.35 INDEX, BP 176/80 MM HG, HR 100 /MIN, RR 18 /MIN, TEMP 98.9 F, OXYGEN SAT % 97%, SAFE IN ENV? (Y/N) YES, NA INITIALS IA 13:21T.DAE SCHERER. EXAMINATION GENERAL EXAMINATION: GENERALNO ACUTE DISTRESS, WELL NOURISHED AND HYDRATED. PSYCHAPPROPRIATE MOOD AND AFFECT . LUNGS:CLEAR TO AUSCULTATION BILATERALLY, NO WHEEZES, RHONCHI, RALES. HEART:NO MURMURS, REGULAR RATE AND RHYTHM. MUSCULOSKELETAL: TRIGGER POINTS: ELICITED WITH PALPATION OVER CERVICAL PARASPINAL MUSCULATURE RIGHT GREATER THAN LEFT. INCREASE IN PAIN NOTED IN RIGHT NECK AREA WITH RANGE OF JOINT MOTION OF THE NECK.. LUMBAR: MUSCLE STRENGTH TESTING 5/5 BILATERAL LOWER EXTREMITIES. PALPATION: + FOR PAIN OVER L/S SPINE. + FOR PAIN OVER L/S PARSPINALS. ASSESSMENTS CERVICALGIA - M54.2 (PRIMARY) MYALGIA OF AUXILIARY MUSCLES, HEAD AND NECK - M79.12 TREATMENT CERVICALGIA NOTES: DUE TO POTENTIAL RISKS ASSOCIATED WITH TRIGGER POINT INJECTIONS WITH HISTORY OF LUNG CANCER PATIENT DOES NOT WANT TO PURSUE THAT OPTION. COMPLAINING OF SIGNIFICANT STIFFNESS MAINLY IN HER RIGHT NECK WITH RANGE OF JOINT MOTION OF HER NECK. SHE IS AGREEABLE TO ATTENDING PHYSICAL THERAPY FOR MYOFASCIAL RELEASE. I OFFERED A PALLIATIVE CARE REFERRAL TO EVALUATE FOR MEDICAL MARIJUANA BUT PATIENT IS DECLINING AT THIS TIME. SHE FEELS IT WOULD BE TOO EXPENSIVE. REFERRAL TO:PHYSICAL THERAPIST REASON:2XWK X 6 WKS,MASSAGE,MYOFASCIAL RELEASE,STRETCHING PROCEDURE CODES FA211 ESTABILISHED PATIENT LOCATED WITHIN [facility] CHARGE DISPOSITION & COMMUNICATION FOLLOW UP 10 WKS (REASON: FOLLOW-UP ON PHYSICAL THERAPY) ELECTRONICALLY SIGNED BY RAMOS HERRERA ON 02/22/2021 AT 04:05 PM EDT DISCLAIMER : THIS IS A VISIT SUMMARY EXTRACTED FROM THE [email or web address] CHART. IT IS NOT A COPY OF THE [employer] PROGRESS NOTE. ROBERT
== END ==
LOC: M PAIN 13:00
PROVIDERS: ATTEND Nurse Practitioner Family
DX: M54.2 Cervicalgia (principal); M79.12 Myalgia of auxiliary muscles, head and neck; I10 Essential (primary) hypertension; F10.20 Alcohol dependence, uncomplicated; F32.9 Major depressive disorder, single episode, unspecified; E53.8 Deficiency of other specified B group vitamins; C34.12 Malignant neoplasm of upper lobe, left bronchus or lung; Z86.711 Personal history of pulmonary embolism; Z86.718 Personal history of other venous thrombosis and embolism; F17.210 Nicotine dependence, cigarettes, uncomplicated; Z92.3 Personal history of irradiation; Z79.01 Long term (current) use of anticoagulants; Z79.899 Other long term (current) drug therapy

== ENCOUNTER → 2021-03-01 | Outpatient (CLI) | payer MEDICARE ==
--- NOTE | 2021-03-03 15:38 | REPMRS ---
Patient History The patient states she had a clinical breast exam in 02/2021 Patient is postmenopausal, had previous chest radiation therapy at age 62, and has history of lung cancer at age 62. No known family history of cancer. 3D TOMOSYNTHESIS WAS PERFORMED. [facility] for [facility] cancer [facility] 6.[facility]%. Volpara breast density b. Digital Woman Screen Mammo: March 01, 2021 - Exam #: [id number] Bilateral CC and MLO view(s) were taken. Technologist: Cheryl Gamino, Technologist Prior study comparison: November 05, 2013, bilateral bilat screen digital mammo, performed at [facility] ([facility]). FINDINGS: There are scattered fibroglandular densities. There is a fairly symmetric fibroglandular pattern in both breasts. There has been no interval development of masses, areas of architectural distortion or clusters of microcalcifications typical of malignancy. There is a smoothly marginated nodule in the upper-outer quadrant of the left breast anteriorly which remains stable. No significant changes when compared with prior studies. Assessment: BI-RADS/ACR category 2 mammogram. Benign Findings. Recommendation Routine screening mammogram of both breasts in 1 year (for women over age 40). This mammogram was interpreted with the aid of an FDA-approved computer-aided dectection system. Electronically Signed By: Jori Barcenas MD 03/03/21 1620
== END ==
LOC: M WHC 14:53
PROVIDERS: ATTEND Internal Medicine
DX: Z12.31 Encounter for screening mammogram for malignant neoplasm of breast (principal); Z12.4 Encounter for screening for malignant neoplasm of cervix; Z78.0 Asymptomatic menopausal state; Z92.3 Personal history of irradiation; Z85.118 Personal history of other malignant neoplasm of bronchus and lung; N63.21 Unspecified lump in the left breast, upper outer quadrant
CPT/HCPCS: 77063; 77067; 87624; G0123; G0463

== ENCOUNTER → 2021-03-01 | Outpatient (REF) | payer MEDICARE | LOC: M SFHCWAGY 18:27 | PROVIDERS: ATTEND Nurse Practitioner Women's Health | DX: Z12.4 Encounter for screening for malignant neoplasm of cervix (principal) ==

== ENCOUNTER → 2021-06-20 | Outpatient (CLI) | payer MEDICAID, MEDICARE ==
[~2021-06-20] MED LIST changes: +ISOVUE-370 76% 100ML VIAL As Ordered ONE
--- NOTE | 2021-06-20 15:08 | REP ---
INDICATION: LUNG CA. COMPARISON: 12/19/2020, 05/23/2020 TECHNIQUE: Bolus 75 mL Isovue 370 scanning through the chest with a coronal and sagittal reconstructions provided. Bone windows were also reviewed. FINDINGS: Lungs are adequately inflated there is volume loss the right hemithorax related to prior of right thoracotomy and lobectomy with elevation of the diaphragm and post surgical traumatic changes to the multiple ribs with healing. No right effusion. Some fibrotic change peripherally in the right lateral base is stable best seen on images 49 and 50. No nodule or mass in the right lung, pleural effusion pleural plaque or new mass. In the left lung upper lobe there is a new extensive patchy density that may reflect some radiation change or atelectasis superimposed on nodular focus 7 x 13 mm in this area. It may be the earlier nodular solid component versus more focal atelectasis. No pleural effusion, pleural based mass or pneumothorax. Left lower lobe except for its superior segment was clear. Lingular segments were clear. The heart is not grossly enlarged. There is no pericardial thickening or effusion. The aorta has calcifications at the arch without aneurysm. The main, right and left pulmonary arteries in the mediastinum are without filling defects. There is no pathologic sized mediastinal, hilar, axillary or supraclavicular adenopathy. The liver suggests some fatty infiltration without focal hepatic mass. Spleen mildly enlarged as before. Neither show focal lesion on the portions included in this field of view. There are laminated gallstones present with at least 2 and measuring up to 1.9 cm. Adrenal glands and upper poles of kidneys grossly intact. Visualized portions of pancreas intact. IMPRESSION: 1. Stable post thoracotomy changes in the right chest without new or suspicious finding. 2. Changes in the left upper lobe where the previously noted irregular parenchymal nodule is now partly obscured or resolved and there is patchy and curvilinear density in this zone which may be radiation fibrotic change or atelectasis versus combination thereof. This will need to be followed. No other parenchymal findings, new nodules or masses. No pleural effusion or focal pleural thickening. 3. No mediastinal, hilar, axillary or upper abdominal lymphadenopathy. 4. Fatty infiltration of the liver with mild splenomegaly but no new or acute finding in the upper abdomen. 5. Laminated gallstones in the gallbladder up to 19 mm size. No biliary dilatation. <Electronically signed by Felice Sánchez > 06/20/21 [id number]
== END ==
LOC: M RAD 13:53
PROVIDERS: ATTEND General Practice
DX: C34.00 Malignant neoplasm of unspecified main bronchus (principal); K80.20 Calculus of gallbladder without cholecystitis without obstruction
CPT/HCPCS: 71260; Q9967

== ENCOUNTER → 2021-06-27 | Outpatient (CLI) | payer MEDICARE, MEDICAID ==
[~2021-06-27] MED LIST changes: -ISOVUE-370 76% 100ML VIAL As Ordered ONE
--- NOTE | 2021-06-27 17:13 | RADONC ---
Radiation Oncology Hx/FUP Radiation Oncology Hx/FUP Date of Service: Jun 27, 2021 Pt Identifier Jared Peterson is a 66 year old female current 1/2 ppd smoker with a history RLL lobectomy for NSCLC in 2014 and multiple sclerosis and a biopsy-proven [id number] stage IA2 NSCLC of the [place]. She completed SBRT to the lesion 60 Gy in 5 fractions on 09/23/20. She is seen today for follow up and survivorship care. Diagnosis/Treatment History Oncologic History [address] Ely for [id number] NSCLC in remission November 2018 PET-CT with SUV 4.5 [place] nodule January 2019 Bronchoscopy for new [place] nodule non-diagnostic April 2019 Lesion was noted to have resolved on CT November 2019 CT chest showing return of [place] nodule April 2020 CT showing growth to 1.4 cm May 2020 PET-CT demonstrating avidity in the lesion no adenopathy in the chest 07/20/20 CT biopsy showing NSCLC 09/23/20 Completed SBRT 60 Gy in 5 fractions with DCA and FB amplitude gated delivery 12/19/20 CT chest interval reduction in size of [place] nodule, now 0.9 cm with associated post-RT changes. Previously 1.4 cm. No new nodules. 06/20/21 CT chest with resolution of [place] nodule, patchy fibrotic changes surrounding c/w post-radiation effects Survivorship: Test Due Next Last result Notes TSH, T4* 6m post-tx, then q1y N/A Carotid US* q10 y post-tx N/A Smoking cessation Assess annually if applicable 11/2021 not interested Chest imaging As indicated, indefinite CT surveillance 11/2021 CR Mammograms Min q1y, in eligible female patients 02/202203/03/21 Negative Echocardiogram q10y post treatment if mediastinum treated N/A PFTs As indicated N/A CBC,CMP, Lipids q1y 11/2021 Interval History Jared reports post nasal drip partially helped by Flonase. She has been feeling down recently, has gained weight recently, thinks this has caused her joints to ache more. She is feeling better from a mood standpoint over the past week or so, has had more energy and volition. Has been walking more for exercise. She has a dry cough and TELLO, which is stable per report. No fevers or chills, no hemoptysis. Current Therapy Surveillance Stage NSCLC [place] [id number] stage IA2 Social History: 30 pk year current 1/2 ppd 2 drinks per day Allergies / Meds Allergies: Coded Allergies: azithromycin (Verified Allergy, Unknown, 10/01/19) Home Meds Active Scripts Azithromycin (Azithromycin) 250 Mg Tablet, 1 DP PO ASDIRECTED for 5 Days, #6 TAB 2 the first day followed by 1 for days 2-5 Prov:SINGH DURAN MD 12/21/20 Reported Medications Dawson-3 Fatty Acids/Fish Oil (Fish Oil 1,000 mg Capsule) 1 Each Capsule, 1000 MG PO DAILY, CAP 07/20/20 Cholecalciferol (Vitamin D3) (Vitamin D3) 1,000 Unit Tablet, 1000 UNITS PO DAILY, TAB 07/20/20 Cyanocobalamin (Vitamin B-12) (Vitamin B-12) 1,000 Mcg Tablet, 1000 MCG PO DAILY, TAB 07/20/20 Nystatin (Nystatin Powder) 15 Gm Powder, 1 DOSE TOP DAILY APPLIED TO FOLDS 07/20/20 Gabapentin (Gabapentin) 300 Mg Capsule, 300 MG PO BID PRN for PAIN 07/20/20 Chlorthalidone (Chlorthalidone) 25 Mg Tablet, 12.5 MG PO DAILY 11/05/19 Spironolactone (Spironolactone) 25 Mg Tablet, 12.5 MG PO DAILY, TAB 11/05/19 Sertraline HCl (Sertraline HCl) 100 Mg Tablet, 100 MG PO DAILY 11/05/19 Apixaban (Eliquis) 2.5 Mg Tablet, 2.5 MG PO BID, TAB 11/05/19 Omeprazole (Omeprazole) 20 Mg Capsule.dr, 20 MG PO DAILY, CAP 11/05/19 Gabapentin (Gabapentin) 300 Mg Capsule, 300 MG PO DAILY 11/05/19 Baclofen (Baclofen) 20 Mg Tab, 20 MG PO TID PRN for MUSCLE SPASMS, TAB 03/01/17 Review of Systems Review of Systems Constitutional: Reports: Fatigue; Denies: Fever, Weight Loss Eyes: Denies: Pain HEENT: Denies: Head Aches Skin: Denies: Rash Pulmonary: Reports: Dyspnea, Cough Cardiovascular: Denies: Chest Pain, Palpitations Gastrointestinal: Denies: Abdominal Pain Musculoskeletal: Reports: Shoulder pain, Arm pain, Joint pain, Muscle pain; Denies: Neck pain Neurological: Denies: Weakness, Numbness Psych: Reports: Depression; Denies: Thoughts of Self Harm Physical Examination Vital Signs Wt 285 lbs (from 268 in November 2020) T 96 P 85 RR 22 BP 136/70 O2 98% Pain 5 Fatigue 0 General Exam: Positive: Alert, Cooperative, No Acute Distress Eye Exam: Positive: PERRLA, EOMI ENT EXAM: Positive: Atraumatic, Pharynx Normal Neck Exam: Positive: Supple Chest Exam: Positive: Clear to auscultation Heart Exam: Positive: Rate Normal Abdomen Exam: Positive: Soft Extremity Exam: Positive: Edema (Edema at ankles BL noted) Skin Exam: Positive: Nl turgor and temperature Neuro Exam: Positive: Normal Gait, Cranial Nerves 3-12 NL Psych Exam: Positive: Mental status NL Diagnostic and Laboratory Diagnostic Review Radiologic images, relevant labs and pathology reports were personally reviewed and discussed with Ms. Peterson. Assessment and Plan Impression Assessment Ms. Peterson is a 66 year old female current 1/2 ppd smoker with a history RLL lobectomy for NSCLC in 2014 and multiple sclerosis and a biopsy-proven [id number] stage IA2 NSCLC of the [place]. She completed SBRT to the lesion 60 Gy in 5 fractions on 09/23/20. She is seen today for follow up and survivorship care. She reports some depression symptoms in recent months, these seem to be abating. I encouraged her to reach out to her therapist, with whom she had a good working relationship previously. She intends to do this. With respect to the poor energy and weight gain, I do think that this is contributing to her musculoskeletal complaints, I encouraged her to continue to exercise as she is able, especially while the whether is good. On her most recent CT the [place] nodule is in complete radiographic response, I explained that the only remaining feature are some fibrotic (scarring) changes which are typical. There are no new lesions of concern. We discussed a follow up in [address] chest for surveillance. I will review smoking cessation at that time. For other survivorship measures, she had her mammograms which were read as normal in February. I will encourage her to get next years mammograms at the next appointment. Performance Status ECOG 1 Plan Follow up in [address] chest Will review smoking cessation at that time Ms. Peterson was encouraged to call with questions or concerns in the interim period. Billing Statement Total time of [33] minutes was spent preparing for the visit [4], obtaining HPI [10], examining the patient [2], reviewing diagnostic tests [4], discussing management options [6], coordinating care [1], and writing this note [6]. SINGH DURAN MD Jun 27, 2021 17:13
== END ==
LOC: M ONCR 14:28
PROVIDERS: ATTEND General Practice
DX: C34.12 Malignant neoplasm of upper lobe, left bronchus or lung (principal); F17.210 Nicotine dependence, cigarettes, uncomplicated; G35 Multiple sclerosis; R05 Cough; R06.09 Other forms of dyspnea; R09.82 Postnasal drip; Z79.899 Other long term (current) drug therapy; Z88.1 Allergy status to other antibiotic agents; Z90.2 Acquired absence of lung [part of]

== ENCOUNTER 2022-05-16 14:13 | Observation (INO) | payer MEDICARE ==
[~2022-05-16 14:13] MED LIST changes: +ALBU2.5V10 INH; -ALBU83IN INH; -D31000TA2 PO; +LOSA50TA28; +LOSA50TA28 PO; -LOSA50TA88; -LOSA50TA88 PO; +VITA100093 PO
[2022-05-16] MEDS ORDERED: NS 1,000 ML IV ONE (14:35)
[2022-05-16] MEDS ORDERED: ACETAMINOPHEN 650 MG SUPP PR ONE (14:40)
[2022-05-16] MEDS ORDERED: cefTRIAXone SOD 2 GM in D5W MINI-BAG PLUS 50 ML IV ONE (14:40)
[2022-05-16 15:04] LABS: BASO % 0.3 % (0.0-1.0); EOS % 0.5 % (0.0-3.0); HEMATOCRIT 32.6 % (36.0-47.0); HEMOGLOBIN 10.8 g/dl (12.0-15.5); LYMPH # 1.1 10^3/uL (1.5-5.0); LYMPH % 30.5 % (24.0-44.0); MEAN CORPUSCULAR HEMOGLOBIN 34.2 pg (27.0-33.0); MEAN CORPUSCULAR HGB CONC 33.1 g/dl (32.0-36.5); MEAN CORPUSCULAR VOLUME 103.2 fl (80.0-96.0); MONO # 0.4 10^3/uL (0.0-0.8); MONO % 11.4 % (2.0-8.0); NEUTROPHILS # 2.1 10^3/uL (1.5-8.5); NEUTROPHILS % 56.8 % (36.0-66.0); RED BLOOD COUNT 3.16 10^6/uL (4.00-5.40); WHITE BLOOD COUNT 3.7 10^3/uL (4.0-10.0)
[2022-05-16 15:22] LABS: CK-MB VALUE MASS < 1.0 NG/ML (<3.6); CPK CREATINE PHOSPHOKINASE 77 U/L (26-192)
[2022-05-16 15:26] LABS: ALBUMIN 2.6 GM/DL (3.2-5.2); ALT/SGPT 25 U/L (12-78); BILIRUBIN,DIRECT 0.9 MG/DL (0.0-0.2); BILIRUBIN,TOTAL 1.5 MG/DL (0.2-1.0); BLOOD UREA NITROGEN 5 MG/DL (7-18); CALCIUM LEVEL 9.3 MG/DL (8.8-10.2); CARBON DIOXIDE LEVEL 25 MEQ/L (21-32); CHLORIDE LEVEL 104 MEQ/L (98-107); CREATININE FOR GFR 0.97 MG/DL (0.55-1.30); ETHYL ALCOHOL (ETHANOL) 0.075 % (0.000-0.010); GLOMERULAR FILTRATION RATE > 60.0 (>45); GLUCOSE, FASTING 109 MG/DL (70-100); POTASSIUM SERUM 3.4 MEQ/L (3.5-5.1); SALICYLATE LEVEL < 1.7 MG/DL (5.0-30.0); SODIUM LEVEL 142 MEQ/L (136-145); TOTAL PROTEIN 7.1 GM/DL (6.4-8.2)
[2022-05-16 15:38] LABS: PLATELET COUNT, AUTOMATED 80 10^3/uL (150-450)
[2022-05-16 16:19] LABS: AMPHETAMINES LEVEL URINE NEGATIVE (NEGATIVE); BARBITURATES URINE NEGATIVE (NEGATIVE); BENZODIAZEPINES URINE NEGATIVE (NEGATIVE); CANNABINOIDS URINE NEGATIVE (NEGATIVE); COCAINE METABOLITE URINE NEGATIVE (NEGATIVE); METHADONE URINE NEGATIVE (NEGATIVE); OPIATES URINE NEGATIVE (NEGATIVE); PHENCYCLIDINE URINE NEGATIVE (NEGATIVE)
[2022-05-16] MEDS ORDERED: NS 3,200 ML in IV 1 EA IV ONE (16:20)
[2022-05-16] MEDS ORDERED: LEVALBUTEROL 1.25 MG/0.5 ML CONCENTRATE NEB INH PRN (17:25)
[2022-05-16] MEDS ORDERED: POTASSIUM CHLORIDE 10MEQ SR TABLET PO ONE (17:25)
[2022-05-16] MEDS ORDERED: PATIENT COMMENT (17:35)
[2022-05-16] MEDS ORDERED: FLUTISP NARES (17:35)
[2022-05-16] MEDS ORDERED: ZOLO100T PO (17:35)
[2022-05-16] MEDS ORDERED: HYDR50TA70 PO (17:35)
[2022-05-16] MEDS ORDERED: HOME MED LIST COMPLETE! XX SCH (17:35)
[2022-05-16 17:43] LABS: OSMOLALITY SERUM 316 MOSM/KG (280-301)
[2022-05-16 18:15] VITALS: BP 131/54
[2022-05-16] MEDS: LACTULOSE 20 GM/30 ML SYRUP UD PO SCH ×2 (18:17→20:30)
[2022-05-16] MEDS: methylPREDNISolone 125MG 2ML VIAL IV SCH (18:17)
[2022-05-16] MEDS: LEVALBUTEROL 1.25 MG/0.5 ML CONCENTRATE NEB INH SCH (19:31)
[2022-05-16] MEDS: guaiFENesin ER 600 MG TAB PO SCH (20:30)
[2022-05-16 22:00] VITALS: BP 129/54
[2022-05-17] MEDS: methylPREDNISolone 125MG 2ML VIAL IV SCH ×3 (00:48→12:44)
[2022-05-17] MEDS: LEVALBUTEROL 1.25 MG/0.5 ML CONCENTRATE NEB INH SCH ×4 (05:11→12:00)
[2022-05-17 06:00] VITALS: BP 158/63
[2022-05-17 08:48] LABS: BASO % 0.3 % (0.0-1.0); HEMATOCRIT 33.2 % (36.0-47.0); HEMOGLOBIN 10.5 g/dl (12.0-15.5); LYMPH # 0.6 10^3/uL (1.5-5.0); LYMPH % 16.7 % (24.0-44.0); MEAN CORPUSCULAR HGB CONC 31.6 g/dl (32.0-36.5); MEAN CORPUSCULAR VOLUME 107.4 fl (80.0-96.0); MONO # 0.1 10^3/uL (0.0-0.8); MONO % 1.9 % (2.0-8.0); NEUTROPHILS # 2.9 10^3/uL (1.5-8.5); NEUTROPHILS % 77.9 % (36.0-66.0); PLATELET COUNT, AUTOMATED 65 10^3/uL (150-450); RED BLOOD COUNT 3.09 10^6/uL (4.00-5.40); WHITE BLOOD COUNT 3.7 10^3/uL (4.0-10.0)
[2022-05-17] MEDS ORDERED: cefTRIAXone SOD 1 GM in D5W MINI-BAG PLUS 50 ML IV SCH (09:00)
[2022-05-17] MEDS ORDERED: NYSTATIN 100,000 UNITS/GM TOPICAL PWD 15 GM TOP SCH (09:00)
[2022-05-17] MEDS ORDERED: LACTULOSE 20 GM/30 ML SYRUP UD PO SCH (09:00)
[2022-05-17] MEDS: guaiFENesin ER 600 MG TAB PO SCH ×2 (09:00→09:52)
[2022-05-17 09:16] LABS: ERYTHROCYTE SEDIMENTATION RATE 47 mm/hr (0-30)
[2022-05-17] MEDS ORDERED: FUROSEMIDE 100MG/10ML VIAL (J1940) IV ONE (09:25)
[2022-05-17] MEDS ORDERED: metOLazone 5 MG TAB PO ONE (09:25)
[2022-05-17 09:26] LABS: CK-MB VALUE MASS 2.8 NG/ML (<3.6); MB/CK RELATIVE INDEX 1.27 (< OR =4)
[2022-05-17 09:27] LABS: ALBUMIN 2.6 GM/DL (3.2-5.2); BILIRUBIN,TOTAL 1.7 MG/DL (0.2-1.0); C REACTIVE PROTEIN QUANTITATIV 1.11 MG/DL (0.00-0.30); CALCIUM LEVEL 9.3 MG/DL (8.8-10.2); CREATININE FOR GFR 1.14 MG/DL (0.55-1.30); GLOMERULAR FILTRATION RATE 50.9 (>45); MAGNESIUM LEVEL 2.1 MG/DL (1.8-2.4); POTASSIUM SERUM 3.3 MEQ/L (3.5-5.1)
[2022-05-17] MEDS ORDERED: LEVO750T13 PO (09:29)
[2022-05-17] MEDS ORDERED: BACITAB PO (09:29)
[2022-05-17] MEDS ORDERED: LACT20EL PO (09:29)
[2022-05-17] MEDS ORDERED: POTASSIUM CHLORIDE 10MEQ SR TABLET PO ONE (10:30)
[2022-05-17 14:15] VITALS: BP 128/59
== END 2022-05-17 15:05 | disposition home or self-care (01) ==
LOC: M ED 14:13 → M ED INP 16:54 → INTOOBSV 16:54 → ENRESERV 17:13 → M MS5PR 18:00
PROVIDERS: ADMIT General Practice; ATTEND General Practice
DX: N39.0 Urinary tract infection, site not specified (principal); B95.7 Other staphylococcus as the cause of diseases classified elsewhere; A41.1 Sepsis due to other specified staphylococcus; R50.9 Fever, unspecified; R00.0 Tachycardia, unspecified; T67.01XA Heatstroke and sunstroke, initial encounter; R41.82 Altered mental status, unspecified; K72.90 Hepatic failure, unspecified without coma; G93.41 Metabolic encephalopathy; D61.818 Other pancytopenia; R79.89 Other specified abnormal findings of blood chemistry; B18.2 Chronic viral hepatitis C; F10.188 Alcohol abuse with other alcohol-induced disorder; K70.2 Alcoholic fibrosis and sclerosis of liver; E87.6 Hypokalemia; Z85.118 Personal history of other malignant neoplasm of bronchus and lung; Z90.2 Acquired absence of lung [part of]; R91.8 Other nonspecific abnormal finding of lung field; F32.A Depression, unspecified; I10 Essential (primary) hypertension; G35 Multiple sclerosis; E53.8 Deficiency of other specified B group vitamins; M19.90 Unspecified osteoarthritis, unspecified site; Z86.718 Personal history of other venous thrombosis and embolism; Z86.711 Personal history of pulmonary embolism; Z79.899 Other long term (current) drug therapy; Z79.01 Long term (current) use of anticoagulants; Z88.1 Allergy status to other antibiotic agents; F17.210 Nicotine dependence, cigarettes, uncomplicated
CPT/HCPCS: 36415; 70450; 71045; 72125; 80047; 80048; 80053; 80076; 80179; 80307; 81001; 82077; 82140; 82550; 82553; 83735; 83880; 83930; 84145; 84443; 84484; 85025; 85049; 85055; 85652; 86140; 87040; 87088; 87186; 87486; 87581; 87633; 87798; 93005; 93041; 94640; 94760; 96365; 96375; 96376; 97161; 97530; 99285; G0378; J0696; J1940; J2930